=== PATIENT | female | born 1965 | race African-American/Black ===

== ENCOUNTER 2017-05-31 08:18 | Emergency (ER) | payer MEDICAID ==
[~2017-05-31] VITALS: Ht 172.7 cm; Wt 80.0 kg
[~2017-05-31 08:18] MED LIST: AMLO10TA PO; DILT180C66 PO; FURO-149 PO; LABE300T PO
[2017-05-31 10:24] LABS: HEMOGLOBIN 9.8 g/dl (12.0-16.0); MEAN CORPUSCULAR HEMOGLOBIN 29.9 PG (27.0-31.0); MEAN CORPUSCULAR HGB CONC 33.8 % (33.0-36.5); MEAN CORPUSCULAR VOLUME 88.4 FL (78-98); MEAN PLATELET VOLUME 7.7 FL (7.4-10.4); PLATELET COUNT 302 X10'3 (140-440); RED BLOOD COUNT 3.29 X10'6 (4.20-5.60); RED CELL DISTRIBUTION WIDTH 15.9 % (11.5-14.5)
[2017-05-31 10:37] LABS: ANISOCYTOSIS 1+; LARGE PLATELETS FEW; PLATELET ESTIMATE NORMAL; TOTAL CELLS COUNTED 100
[2017-05-31 10:45] LABS: ALANINE AMINOTRANSFERASE 36 U/L (12-78); ALBUMIN 2.9 G/DL (3.4-5.0); ALBUMIN/GLOBULIN RATIO 0.7 (1.1-1.5); ALKALINE PHOSPHATASE 80 IU/L (46-116); ANION GAP 10 (8-16); ASPARTATE AMINO TRANSFERASE 17 U/L (10-37); BILIRUBIN,TOTAL 0.4 MG/DL (0.1-1.0); BLOOD UREA NITROGEN 69 MG/DL (7-18); CALCIUM 8.4 MG/DL (8.5-10.1); CHLORIDE 106 MMOL/L (99-107); CREATININE 4.94 MG/DL (0.40-0.90); GLUCOSE 86 MG/DL (70-104); POTASSIUM 4.6 MMOL/L (3.5-5.1); SODIUM 140 MMOL/L (135-145); TOTAL CARBON DIOXIDE 24.1 MMOL/L (24-32); TOTAL PROTEIN 6.9 G/DL (6.4-8.2); eGFR 11 ML/MIN
[2017-05-31 10:49] VITALS: BP 197/115
== END 2017-05-31 11:52 | disposition home or self-care (01) ==
LOC: ER 08:19
DX: I13.0 Hypertensive heart and chronic kidney disease with heart failure and stage 1 through stage 4 chronic kidney disease, or unspecified chronic kidney disease (principal); N18.9 Chronic kidney disease, unspecified; I50.9 Heart failure, unspecified; R60.0 Localized edema; I25.10 Atherosclerotic heart disease of native coronary artery without angina pectoris; F12.10 Cannabis abuse, uncomplicated; F15.10 Other stimulant abuse, uncomplicated; Z95.1 Presence of aortocoronary bypass graft; Z98.61 Coronary angioplasty status; Z88.8 Allergy status to other drugs, medicaments and biological substances; Z79.899 Other long term (current) drug therapy
CPT/HCPCS: 36415; 80053; 83880; 85025; 93970; 99285

== ENCOUNTER 2017-06-09 06:42 | Day surgery (SDC) | payer MEDICAID ==
[2017-06-09] VITALS (7 sets, daily range): BP systolic 140–194; BP diastolic 74–100
[2017-06-09] MEDS ORDERED: heparin 1,000unit/ml 10ml vial 10 ML ONE (08:39)
[2017-06-09] MEDS ORDERED: LIDOcaine 1%/PF (10mg/ml) 5ml vial ONE (08:39)
[2017-06-09] MEDS ORDERED: midazolam 2 mg/2 ml injection ONE (08:40)
[2017-06-09] MEDS ORDERED: fentaNYL/PF 50MCG/1 ML 2ML syringe ONE (08:40)
[2017-06-09] MEDS ORDERED: OXAZEpam 15mg capsule PO ONE ×2 (08:44→08:55)
[2017-06-09] MEDS ORDERED: LABE300T PO (09:02)
[2017-06-09] MEDS ORDERED: FURO40TA4 PO (09:02)
[2017-06-09] MEDS ORDERED: METO5TAB7 PO (09:02)
[2017-06-09] MEDS ORDERED: AMLO10TA PO (09:02)
[2017-06-09] MEDS ORDERED: DILT180C66 PO (09:02)
[2017-06-09] MEDS ORDERED: LIDOcaine 1%/PF (10mg/ml) 5ml vial SQ ONE (09:40)
[2017-06-09] MEDS ORDERED: heparin 1,000 units/ml 10ml inj ICATH ONE (09:40)
[2017-06-09] MEDS ORDERED: midazolam 2 mg/2 ml injection IV PRN (09:40)
[2017-06-09] MEDS ORDERED: fentaNYL/PF 50MCG/1 ML 2ML syringe IV PRN (09:40)
== END 2017-06-09 12:25 | disposition home or self-care (01) ==
LOC: SSTAY O 06:42
PROVIDERS: ATTEND Radiology Diagnostic Radiology
DX: I13.2 Hypertensive heart and chronic kidney disease with heart failure and with stage 5 chronic kidney disease, or end stage renal disease (principal); N18.5 Chronic kidney disease, stage 5; I50.9 Heart failure, unspecified; I25.10 Atherosclerotic heart disease of native coronary artery without angina pectoris; F17.210 Nicotine dependence, cigarettes, uncomplicated; F19.21 Other psychoactive substance dependence, in remission; Z95.5 Presence of coronary angioplasty implant and graft; Z79.899 Other long term (current) drug therapy; Z88.8 Allergy status to other drugs, medicaments and biological substances; Z98.890 Other specified postprocedural states
CPT/HCPCS: 36558; 76937; 77001; A6257; C1750; C1894; J1644; J2001; J2250; J3010; J7030; A4620

== ENCOUNTER 2017-06-09 15:56 | Emergency (ER) | payer MEDICAID ==
[~2017-06-09] VITALS: Ht 175.3 cm; Wt 75.0 kg
[~2017-06-09 15:56] MED LIST changes: +FURO40TA4 PO; +METO5TAB7 PO
[2017-06-09 16:32] VITALS: BP 140/90
== END 2017-06-09 16:37 | disposition home or self-care (01) ==
LOC: ER 15:56
DX: M54.2 Cervicalgia (principal); Z13.89 Encounter for screening for other disorder; F12.10 Cannabis abuse, uncomplicated; F15.10 Other stimulant abuse, uncomplicated; I25.10 Atherosclerotic heart disease of native coronary artery without angina pectoris; I13.0 Hypertensive heart and chronic kidney disease with heart failure and stage 1 through stage 4 chronic kidney disease, or unspecified chronic kidney disease; I50.9 Heart failure, unspecified; N18.9 Chronic kidney disease, unspecified; Z95.1 Presence of aortocoronary bypass graft; Z99.2 Dependence on renal dialysis
CPT/HCPCS: 71045; 99283

== ENCOUNTER 2018-07-19 01:54 | Inpatient (IN) | payer MEDICAID ==
[~2018-07-19] VITALS: Ht 172.7 cm; Wt 60.7 kg
[~2018-07-19 01:54] MED LIST changes: -FURO-149 PO; -LABE300T PO; +LABE300T2 PO
--- NOTE | 2018-07-19 03:06 | NUR ---
March at bedside with plans to consult with nursing unit clerk
[2018-07-19] MEDS ORDERED: acetaminophen 325mg tablet PO PRN ×2 (04:55)
[2018-07-19] MEDS ORDERED: ondansetron/PF 4mg/2ml inj IV PRN (04:55)
[2018-07-19] MEDS ORDERED: acetaminophen 650mg rectal suppository RC PRN (04:55)
[2018-07-19 07:04] LABS: BASOPHILS # (AUTO) 0.1 X10'3 (0-0.2); BASOPHILS % (AUTO) 1.5 % (0-1); EOSINOPHILS # (AUTO) 0.3 X10'3 (0-0.9); EOSINOPHILS % (AUTO) 4.9 % (0-6); HEMATOCRIT 29.7 % (35.0-45.0); LYMPHOCYTES # (AUTO) 1.5 X10'3 (1.1-4.8); MEAN CORPUSCULAR HEMOGLOBIN 33.3 PG (27.0-31.0); MEAN CORPUSCULAR HGB CONC 33.7 g/dL (33.0-36.5); MEAN CORPUSCULAR VOLUME 98.9 FL (78-98); MEAN PLATELET VOLUME 8.6 FL (7.4-10.4); MONOCYTES # (AUTO) 0.4 X10'3 (0-0.9); MONOCYTES % (AUTO) 8.3 % (2-12); NEUTROPHILS # (AUTO) 2.9 X10'3 (1.8-7.7); NEUTROPHILS % (AUTO) 55.3 % (42-75); PLATELET COUNT 168 X10'3 (140-440); RED CELL DISTRIBUTION WIDTH 14.7 % (11.5-14.5); WHITE BLOOD COUNT 5.2 X10'3 (4.5-11.0)
[2018-07-19 07:19] LABS: ALANINE AMINOTRANSFERASE 17 U/L (12-78); ALBUMIN 3.2 G/DL (3.4-5.0); ALBUMIN/GLOBULIN RATIO 1.1 (1.1-1.5); ALKALINE PHOSPHATASE 50 IU/L (46-116); ANION GAP 14 (8-16); ASPARTATE AMINO TRANSFERASE 16 U/L (10-37); BILIRUBIN,TOTAL 0.5 MG/DL (0.1-1.0); BLOOD UREA NITROGEN 50 MG/DL (7-18); BUN/CREATININE RATIO 5.4 (6.6-38.0); CALCIUM 8.8 MG/DL (8.5-10.1); CHLORIDE 102 MMOL/L (99-107); CREATININE 9.18 MG/DL (0.40-0.90); GLUCOSE 74 MG/DL (70-104); MAGNESIUM 2.7 MG/DL (1.5-2.4); PHOSPHORUS 6.5 MG/DL (2.3-4.5); POTASSIUM 3.5 MMOL/L (3.5-5.1); SODIUM 140 MMOL/L (135-145); TOTAL CARBON DIOXIDE 23.9 MMOL/L (24-32); TOTAL PROTEIN 6.1 G/DL (6.4-8.2); eGFR 5 ML/MIN
[2018-07-19 07:35] VITALS: BP 202/94
[2018-07-19] MEDS: heparin, porcine 5000 units/ml vial SQ SCH ×2 (08:00→20:21)
--- NOTE | 2018-07-19 08:09 | NUR ---
Called Paste Mixing Supervisor doctor Dr. Diaz regarding initial BP of 202/94 and that BP reading has been high even in the ER. Dr. Diaz ordered to resume all her BP meds patient taking at home. List of home meds reviewed with patient.
[2018-07-19] MEDS ORDERED: diltiazem CD 180mg cap (once-daily) PO SCH (08:15)
[2018-07-19] MEDS: famotidine 20mg tablet PO SCH (08:31)
[2018-07-19] MEDS: furosemide 40mg tablet PO SCH ×2 (08:31→20:21)
[2018-07-19] MEDS: docusate sod 100mg capsule PO SCH ×2 (08:31→20:21)
[2018-07-19] MEDS ORDERED: heparin 1,000unit/ml 10ml vial 10 ML IV ONE (08:33)
[2018-07-19] MEDS ORDERED: heparin 1,000 units/ml 10ml inj IV ONE (08:35)
[2018-07-19] MEDS ORDERED: epoetin 20,000 units/ml inj IV ONE (08:35)
[2018-07-19] MEDS ORDERED: albumin (Human) 5% 250ml 250 ML IV PRN (08:35)
[2018-07-19] MEDS ORDERED: heparin 1,000 units/ml 10ml inj HE ONE ×2 (08:40)
[2018-07-19] MEDS: metolazone 2.5mg tablet PO SCH ×2 (09:45→11:44)
--- NOTE | 2018-07-19 09:45 | NUR ---
Metolazone held due to scheduled hemodialysis treatment scheduled for today. Hands off report given to HD nurse Oralia
[2018-07-19 10:15] VITALS: BP 196/95
[2018-07-19 11:00] VITALS: BP 204/98
[2018-07-19 11:13] VITALS: BP 204/98
--- NOTE | 2018-07-19 12:03 | NUR ---
Called Dr. Diaz regarding BP still high even after I resumed her PO BP meds. Dr. Diaz said she should be dialyzed today. Also, got an order to start patient on renal diet
--- NOTE | 2018-07-19 15:14 | NUR ---
Spoke to Georgiana from [facility] dialysis about obtaining hemodialysis consent as I do not see any consent signed in the chart
--- NOTE | 2018-07-19 15:47 | NUR ---
HD nurse reported to me that she verified with her warehouse receiving supervisor about patient already have consent for hemodialysis previously
[2018-07-19 15:48] VITALS: BP 182/103
[2018-07-19] MEDS ORDERED: diltiazem CD 180mg cap (once-daily) PO STA (16:57)
[2018-07-19] MEDS ORDERED: minoxidil 2.5mg tablet PO PRN (17:00)
[2018-07-19] MEDS ORDERED: HYDROcodone/acetaminophen 10/325mg tab PO PRN (17:05)
[2018-07-19] MEDS: HYDROcodone/acetaminophen 5mg/325mg tablet PO PRN (17:15)
--- NOTE | 2018-07-19 18:32 | NUR ---
Problems reprioritized. Patient report given, questions answered & plan of care reviewed with Katharine ABURTO.
[2018-07-19 20:00] VITALS: BP 184/93
[2018-07-19] MEDS: labetalol 100mg tablet PO SCH (20:22)
--- NOTE | 2018-07-19 21:29 | NUR ---
Patient in room REEMA 349. I have received report from CRISELDA Hogan and had the opportunity to ask questions and assume patient care. Addendum: 07/19/18 at 2132 by Katharine Marie RN Amended: Links added.
[2018-07-20 00:12] VITALS: BP 147/84
[2018-07-20 05:48] LABS: BASOPHILS % (AUTO) 0.7 % (0-1); EOSINOPHILS # (AUTO) 0.2 X10'3 (0-0.9); EOSINOPHILS % (AUTO) 5.1 % (0-6); HEMOGLOBIN 11.4 g/dl (12.0-16.0); LYMPHOCYTES # (AUTO) 1.3 X10'3 (1.1-4.8); LYMPHOCYTES % (AUTO) 30.4 % (21-51); MEAN CORPUSCULAR HEMOGLOBIN 33.3 PG (27.0-31.0); MEAN CORPUSCULAR HGB CONC 33.5 g/dL (33.0-36.5); MEAN CORPUSCULAR VOLUME 99.2 FL (78-98); MEAN PLATELET VOLUME 8.9 FL (7.4-10.4); MONOCYTES # (AUTO) 0.2 X10'3 (0-0.9); MONOCYTES % (AUTO) 5.7 % (2-12); NEUTROPHILS # (AUTO) 2.4 X10'3 (1.8-7.7); NEUTROPHILS % (AUTO) 58.1 % (42-75); PLATELET COUNT 195 X10'3 (140-440); RED BLOOD COUNT 3.43 X10'6 (4.20-5.60); RED CELL DISTRIBUTION WIDTH 14.5 % (11.5-14.5); WHITE BLOOD COUNT 4.2 X10'3 (4.5-11.0)
[2018-07-20 05:55] LABS: ALBUMIN 3.4 G/DL (3.4-5.0); ANION GAP 9 (8-16); BLOOD UREA NITROGEN 25 MG/DL (7-18); BUN/CREATININE RATIO 4.2 (6.6-38.0); CALCIUM 8.7 MG/DL (8.5-10.1); CHLORIDE 103 MMOL/L (99-107); CREATININE 5.91 MG/DL (0.40-0.90); GLUCOSE 84 MG/DL (70-104); PHOSPHORUS 4.3 MG/DL (2.3-4.5); SODIUM 139 MMOL/L (135-145); TOTAL CARBON DIOXIDE 27.5 MMOL/L (24-32); eGFR 9 ML/MIN
[2018-07-20 05:56] LABS: POTASSIUM 4.1 MMOL/L (3.5-5.1)
--- NOTE | 2018-07-20 06:18 | NUR ---
Problems reprioritized. Patient report given, questions answered & plan of care reviewed with CRISELDA Hogan. Addendum: 07/20/18 at 0618 by Katharine Marie RN Amended: Links added.
--- NOTE | 2018-07-20 06:26 | NUR ---
Patient in room REEMA 349. I have received report from Katharine ABURTO and had the opportunity to ask questions and assume patient care.
[2018-07-20 07:00] VITALS: BP 199/94
[2018-07-20] MEDS: docusate sod 100mg capsule PO SCH (07:50)
[2018-07-20] MEDS: furosemide 40mg tablet PO SCH (07:50)
[2018-07-20] MEDS: famotidine 20mg tablet PO SCH (07:50)
[2018-07-20] MEDS: labetalol 100mg tablet PO SCH (07:51)
[2018-07-20] MEDS: metolazone 2.5mg tablet PO SCH (07:52)
[2018-07-20] MEDS: heparin, porcine 5000 units/ml vial SQ SCH (07:53)
[2018-07-20] MEDS: HYDROcodone/acetaminophen 5mg/325mg tablet PO PRN (07:59)
[2018-07-20] MEDS ORDERED: diltiazem CD 180mg cap (once-daily) PO SCH (08:00)
[2018-07-20 09:43] VITALS: BP 124/62
[2018-07-20] MEDS ORDERED: AMLO5TAB PO (09:47)
[2018-07-20] MEDS ORDERED: DILT180C66 PO (09:47)
--- NOTE | 2018-07-20 10:40 | NUR ---
Discharge instructions given to patient, patient verbalized understanding of all instructions made to her including getting a primary care physician or going to [facility] to have a doctor manage her condition on top of following up with the Dialysis Center as per routine Addendum: 07/20/18 at 1042 by Samira Chadwick RN Peripheral IV catheter removed from the left EJ, tip intact, pressure dressing applied. Instructed patient to ensure she has all her belongings with her and to wait for her new prescription filled and delivered at bedside by [facility]
--- NOTE | 2018-07-20 11:40 | NUR ---
Patient received her new prescription filled by [facility] pharmacy. Patient was discharged home accompanied by her family
[2018-07-21] MEDS ORDERED: lactulose 20gm/30ml cup PO PRN (04:55)
== END 2018-07-20 11:40 | disposition home or self-care (01) | DRG 813 ==
LOC: ER 01:55 → SUR 3N 07:52
PROVIDERS: ADMIT Nurse Practitioner Family; ATTEND Nurse Practitioner Family
PROC: 5A1D70Z Performance of Urinary Filtration, Intermittent, Less than 6 Hours Per Day (ICD-10-PCS; principal; 2018-07-19)
DX: L76.32 Postprocedural hematoma of skin and subcutaneous tissue following other procedure (principal); I13.2 Hypertensive heart and chronic kidney disease with heart failure and with stage 5 chronic kidney disease, or end stage renal disease; E10.22 Type 1 diabetes mellitus with diabetic chronic kidney disease; E10.51 Type 1 diabetes mellitus with diabetic peripheral angiopathy without gangrene; F15.90 Other stimulant use, unspecified, uncomplicated; N18.6 End stage renal disease; G30.9 Alzheimer's disease, unspecified; F02.80 Dementia in other diseases classified elsewhere, unspecified severity, without behavioral disturbance, psychotic disturbance, mood disturbance, and anxiety; I25.10 Atherosclerotic heart disease of native coronary artery without angina pectoris; Y83.8 Other surgical procedures as the cause of abnormal reaction of the patient, or of later complication, without mention of misadventure at the time of the procedure; I50.9 Heart failure, unspecified; J44.9 Chronic obstructive pulmonary disease, unspecified; F12.90 Cannabis use, unspecified, uncomplicated; Y92.89 Other specified places as the place of occurrence of the external cause; Z79.4 Long term (current) use of insulin; I25.2 Old myocardial infarction; Z82.0 Family history of epilepsy and other diseases of the nervous system; Z82.3 Family history of stroke; Z86.73 Personal history of transient ischemic attack (TIA), and cerebral infarction without residual deficits; Z87.891 Personal history of nicotine dependence; Z86.74 Personal history of sudden cardiac arrest; Z95.1 Presence of aortocoronary bypass graft; Z99.2 Dependence on renal dialysis; Z83.3 Family history of diabetes mellitus; Z82.5 Family history of asthma and other chronic lower respiratory diseases; Z82.49 Family history of ischemic heart disease and other diseases of the circulatory system; Z82.41 Family history of sudden cardiac death; Z88.8 Allergy status to other drugs, medicaments and biological substances
CPT/HCPCS: 36415; 80053; 80069; 83735; 83880; 84100; 85025; 87070; 93931; 93971; 99285; G0257; G0378; J0885; J1644

== ENCOUNTER 2018-08-22 11:18 | Inpatient (IN) | payer MEDICAID ==
[~2018-08-22] VITALS: Ht 175.3 cm; Wt 63.6 kg
[~2018-08-22 11:18] MED LIST changes: -AMLO10TA PO; -METO5TAB7 PO
--- NOTE | 2018-08-22 12:05 | NUR ---
PATIENT STATES THAT SHE HAD BEEN ON DIALYSIS FOR ABOUT 1 YEAR AND IS SUPPOSED TO GO TO HD ON THURSDAY, THURSDAY, AND THURSDAY PATIENT MISSED HER THURSDAY DIALYSIS BECAUSE "I COULD NOT FIND MY SHOES" PATIENT APPEARS TO HAVE A LEFT UPPER ARM LOOP GRAFT FISTULA WITH POSITIVE BRUIT AND POSITIVE THRILL PATIENT HAS A RIGHT UPPER CHEST HD CATHETER THAT DOES NOT HAVE A DRESSING ON IT, NOR IS EXTERNALLY SECURED
[2018-08-22] MEDS ORDERED: nitroGLYCERIN-Tridil 50MG/D5W 250 ML IV PRN (12:16)
[2018-08-22] MEDS ORDERED: labetalol 20mg/4ml (5mg/ml) syringe IV ONE (12:20)
[2018-08-22] MEDS ORDERED: furosemide 10 MG/1 ML 10ml inj IV ONE (12:20)
--- NOTE | 2018-08-22 12:22 | NUR ---
RIGHT KRISTYN CATHETER: EXTERNAL LENGTH TO HUB OF Y=4 CM, CATHETER DIRTY WITH HAIR ON IT. PATIENT STATED THAT SHE TOOK THE DRESSING OFF BECAUSE IT ITCHED. I EXPLAINED IN SIMPLE DETAIL THE IMPORTANCE OF KEEPING HER CENTRAL LINE SITE CLEAN AND WITH A DRESSING ON IT. I EXPLAINED THE INCREASED RISK OF INFECTION BY REMOVING THE DRESSING. I CLEANED THE ACTUAL LINE WITH MULTIPLE CLORAPREPS AND REMOVED DIRT AND HAIR. I THEN USED A CENTRAL LINE DRESSING KIT AND USED STERILE TECHNIQUE TO PLACE A TEGADERM FROM THE CL DRESSING KIT.
--- NOTE | 2018-08-22 12:24 | NUR ---
PATIENT STATES THAT SHE TAKES 300 MG OF LABETOLOL AND THAT DR LÓPEZ STARTED HER ON CARDIA AND ANOTHER BP MEDICATION ABOUT 3 WEEKS AGO AND SHE DID NOT TAKE THEM BEACUSE SHE DID NOT WANT TO HAVE HER BLOOD PRESSURE GET TOO LOW
[2018-08-22 12:31] LABS: BASOPHILS # (AUTO) 0.1 X10'3 (0-0.2); EOSINOPHILS # (AUTO) 0.2 X10'3 (0-0.9); EOSINOPHILS % (AUTO) 2.2 % (0-6); HEMATOCRIT 36.1 % (35.0-45.0); LYMPHOCYTES # (AUTO) 1.5 X10'3 (1.1-4.8); MEAN CORPUSCULAR HEMOGLOBIN 33.5 PG (27.0-31.0); MEAN CORPUSCULAR HGB CONC 33.4 g/dL (33.0-36.5); MEAN CORPUSCULAR VOLUME 100.2 FL (78-98); MEAN PLATELET VOLUME 9.3 FL (7.4-10.4); MONOCYTES # (AUTO) 0.3 X10'3 (0-0.9); MONOCYTES % (AUTO) 4.1 % (2-12); NEUTROPHILS # (AUTO) 5.1 X10'3 (1.8-7.7); NEUTROPHILS % (AUTO) 71.7 % (42-75); PLATELET COUNT 303 X10'3 (140-440); RED CELL DISTRIBUTION WIDTH 15.9 % (11.5-14.5); WHITE BLOOD COUNT 7.1 X10'3 (4.5-11.0)
[2018-08-22 12:45] LABS: ALANINE AMINOTRANSFERASE 41 U/L (12-78); ALBUMIN 3.9 G/DL (3.4-5.0); ALKALINE PHOSPHATASE 74 IU/L (46-116); ANION GAP 14 (8-16); ASPARTATE AMINO TRANSFERASE 46 U/L (10-37); BILIRUBIN,TOTAL 1.5 MG/DL (0.1-1.0); BLOOD UREA NITROGEN 58 MG/DL (7-18); BUN/CREATININE RATIO 6.7 (6.6-38.0); CALCIUM 9.2 MG/DL (8.5-10.1); CHLORIDE 99 MMOL/L (99-107); CREATININE 8.72 MG/DL (0.40-0.90); GLUCOSE 93 MG/DL (70-104); SODIUM 136 MMOL/L (135-145); TOTAL CARBON DIOXIDE 23.4 MMOL/L (24-32); TOTAL PROTEIN 7.9 G/DL (6.4-8.2); eGFR 6 ML/MIN
[2018-08-22 12:47] LABS: POTASSIUM 4.1 MMOL/L (3.5-5.1)
[2018-08-22] MEDS ORDERED: ondansetron/PF 4mg/2ml inj IV PRN (14:00)
[2018-08-22] MEDS ORDERED: HYDROcodone/acetaminophen 5mg/325mg tablet PO PRN (14:00)
[2018-08-22] MEDS ORDERED: acetaminophen 325mg tablet PO PRN (14:00)
[2018-08-22] MEDS: diltiazem CD 180mg cap (once-daily) PO SCH (14:31)
--- NOTE | 2018-08-22 14:32 | NUR ---
COUDICKSON KNOX VISITED [phone]
[2018-08-22 15:10] LABS: PARTIAL THROMBOPLASTIN TIME 26 SECONDS (22-32)
--- NOTE | 2018-08-22 15:55 | NUR ---
Patient in room PCU 3012. I have received report from Galina ABURTO and had the opportunity to ask questions and assume patient care.
[2018-08-22] MEDS ORDERED: labetalol 100mg tablet PO STA (16:19)
[2018-08-22] MEDS ORDERED: hydrALAZINE 20mg/ml inj. IV ONE (16:20)
--- NOTE | 2018-08-22 16:26 | NUR ---
SPOKE TO CARROLL AUTOMATED ACCESS SYSTEMS TECHNICIAN REGARDING NITRO GTT DCD AND APRESOLINE 10 MG IV AND LABETOLOL 300 MG PO TO BE GIVEN. CARROLL WILL INFORM RN NOT TO HOLD NOC MEDS
--- NOTE | 2018-08-22 16:35 | NUR ---
PER DR YNUG, NITRO GTT STOPPED. GUN BARREL FINISHER GARY CALLED AND CARROLL WILL INFORM Devon ABURTO THAT PO LABETOLOL 300 MG NEEDS TO BE GIVEN MARISEL THE MEDICATION IS NOT IN THE ER OMNICELL
--- NOTE | 2018-08-22 16:47 | NUR ---
Patient arrived to PCU.
[2018-08-22 17:00] VITALS: BP 211/96
[2018-08-22 18:00] VITALS: BP 222/96
--- NOTE | 2018-08-22 18:00 | NUR ---
Patient in room PCU 3012. I have received report from Anoop ABURTO and had the opportunity to ask questions and assume patient care.
--- NOTE | 2018-08-22 18:38 | NUR ---
Problems reprioritized. Patient report given, questions answered & plan of care reviewed with Bambi ABURTO.
--- NOTE | 2018-08-22 18:40 | NUR ---
Patient in room PCU 3012. I have received report from Anoop ABURTO and had the opportunity to ask questions and assume patient care with Maria G ABURTO.
[2018-08-22] MEDS: hydrALAZINE 20mg/ml inj. IV SCH (19:30)
--- NOTE | 2018-08-22 20:06 | NUR ---
notified Laci Chavez that per Anoop ABURTO from day shift, pt arrived to floor with no TDC dressing and it was dirty and oozing. dressing is now CDI. Pt denied any pain around TDC site or head or neck. WBC 7.1. No orders for blood cultures at this time
[2018-08-22] MEDS: labetalol 100mg tablet PO SCH (21:55)
[2018-08-22 22:00] VITALS: BP 159/72
[2018-08-23] MEDS: hydrALAZINE 20mg/ml inj. IV SCH ×2 (01:36→07:30)
[2018-08-23 02:00] VITALS: BP 149/69
[2018-08-23 04:55] LABS: URINE AMPHETAMINE SCREEN NEGATIVE (Neg); URINE BARBITUATE SCREEN NEGATIVE (Neg); URINE BENZODIAZEPINES SCREEN NEGATIVE (Neg); URINE CANNABINOID SCREEN POSITIVE (Neg); URINE COCAINE SCREEN NEGATIVE (Neg); URINE METHADONE SCREEN NEGATIVE (Neg); URINE OPIATE SCREEN NEGATIVE (Neg); URINE PHENCYCLIDINE SCREEN NEGATIVE (Neg)
--- NOTE | 2018-08-23 05:09 | NUR ---
Patient rested comfortably all night. No complaints of pain. Patient stated that she cannot walk when her SBP is 120s.
--- NOTE | 2018-08-23 05:34 | NUR ---
Patient refusing AM Lab draw. Patient stated to only poke her on the hand and no where else. Lab will be back to try again.
--- NOTE | 2018-08-23 06:04 | NUR ---
Orientee documentation: I have reviewed and agree with all interventions, assessments performed and documented by Maria G ABURTO.
--- NOTE | 2018-08-23 06:04 | NUR ---
Problems reprioritized. Patient report given, questions answered & plan of care reviewed with Anoop ABURTO.
--- NOTE | 2018-08-23 06:04 | NUR ---
Problems reprioritized. Patient report given, questions answered & plan of care reviewed with Anoop ABURTO.
--- NOTE | 2018-08-23 06:05 | NUR ---
Patient in room PCU 3012. I have received report from Bambi ABURTO and had the opportunity to ask questions and assume patient care.
[2018-08-23 06:41] VITALS: BP 113/62
[2018-08-23 06:58] LABS: BASOPHILS # (AUTO) 0.1 X10'3 (0-0.2); BASOPHILS % (AUTO) 1.1 % (0-1); EOSINOPHILS # (AUTO) 0.2 X10'3 (0-0.9); EOSINOPHILS % (AUTO) 2.9 % (0-6); HEMATOCRIT 28.2 % (35.0-45.0); HEMOGLOBIN 9.7 g/dl (12.0-16.0); LYMPHOCYTES % (AUTO) 17.6 % (21-51); MEAN CORPUSCULAR HEMOGLOBIN 33.9 PG (27.0-31.0); MEAN CORPUSCULAR HGB CONC 34.5 g/dL (33.0-36.5); MEAN CORPUSCULAR VOLUME 98.1 FL (78-98); MEAN PLATELET VOLUME 9.1 FL (7.4-10.4); MONOCYTES # (AUTO) 0.4 X10'3 (0-0.9); MONOCYTES % (AUTO) 7.2 % (2-12); NEUTROPHILS % (AUTO) 71.2 % (42-75); PLATELET COUNT 236 X10'3 (140-440); RED BLOOD COUNT 2.88 X10'6 (4.20-5.60); RED CELL DISTRIBUTION WIDTH 15.8 % (11.5-14.5); WHITE BLOOD COUNT 5.6 X10'3 (4.5-11.0)
[2018-08-23] MEDS: labetalol 100mg tablet PO SCH ×2 (07:23→20:15)
[2018-08-23] MEDS: diltiazem CD 180mg cap (once-daily) PO SCH (07:24)
--- NOTE | 2018-08-23 07:42 | NUR ---
TDC Documentation! Patient presented to ED with Right sided TDC that was open to air (no dressing), was dirty and hairy. The ER nurse cleaned the exposed catheter and applied a new sterile dressing to the site. According to the ER nurse, the patient usually receives dialysis , , and Thu, but missed her Thursday appointment because she didn't feel like going and couldn't find her shoes. Therefore, the patient has not had dialysis reportedly since last . Per the ER nurse report, the patient removed the sterile dressing on the TDC because the dressing was beginning to itch. Naomie ABURTO (infection control) was notified verbally this morning of these circumstances, in which she made a note of the occurrence and informed me she would be sending Ezekiel Magaña RN an email for infection control to follow up on. No ABX or Blood cultures have been ordered to my knowledge.
[2018-08-23] MEDS ORDERED: heparin 1,000unit/ml 10ml vial 10 ML IV ONE (08:39)
[2018-08-23] MEDS ORDERED: albumin (Human) 5% 250ml 250 ML IV PRN (08:40)
[2018-08-23] MEDS ORDERED: heparin 1,000 units/ml 10ml inj IV ONE (08:40)
[2018-08-23] MEDS ORDERED: epoetin 20,000 units/ml inj IV ONE (08:40)
--- NOTE | 2018-08-23 08:40 | NUR ---
TDC documentation Patient states she removed TDC dressing on 08/22/18 prior to coming to ER.
[2018-08-23 08:42] LABS: ANION GAP 14 (8-16); BLOOD UREA NITROGEN 64 MG/DL (7-18); BUN/CREATININE RATIO 6.9 (6.6-38.0); CALCIUM 8.6 MG/DL (8.5-10.1); CHLORIDE 100 MMOL/L (99-107); GLUCOSE 102 MG/DL (70-104); POTASSIUM 3.7 MMOL/L (3.5-5.1); SODIUM 135 MMOL/L (135-145); TOTAL CARBON DIOXIDE 21.1 MMOL/L (24-32); eGFR 5 ML/MIN
[2018-08-23] MEDS ORDERED: heparin 1,000 units/ml 10ml inj HE ONE ×2 (08:45)
[2018-08-23 11:00] VITALS: BP 100/64
[2018-08-23 15:00] VITALS: BP 105/60
--- NOTE | 2018-08-23 16:37 | NUR ---
Spoke to Dr. Joe Diaz ordered CT Abdomen and Pelvis with PO and IV contrast. We have been unable to obtain IV access on patient, and PICC nurse tried and failed twice as well. Dr. Diaz said if we are unable to obtain IV contrast then we are to proceed using only PO contrast.
[2018-08-23 18:00] VITALS: BP 158/79
--- NOTE | 2018-08-23 18:00 | NUR ---
Patient in room PCU 3012. I have received report from Anoop ABURTO and had the opportunity to ask questions and assume patient care.
[2018-08-23] MEDS: ipratropium/albuterol 3ml nebule NEB PRN (21:50)
[2018-08-23] MEDS: diatr meglu/diatrizoate 30ml oral sol.-(3 dose) bottle PO SCH (22:35)
[2018-08-23 23:14] VITALS: BP 134/64
[2018-08-24] VITALS (7 sets, daily range): BP systolic 135–176; BP diastolic 66–91
--- NOTE | 2018-08-24 06:20 | NUR ---
Orientee documentation: I have reviewed and agree with all interventions, assessments performed and documented by Maria G ABURTO.
--- NOTE | 2018-08-24 06:20 | NUR ---
Problems reprioritized. Patient report given, questions answered & plan of care reviewed with Sultana ABURTO.
--- NOTE | 2018-08-24 06:26 | NUR ---
Patient in room PCU 3012. I have received report from Bambi ABURTO and had the opportunity to ask questions and assume patient care.
[2018-08-24] MEDS: diatr meglu/diatrizoate 30ml oral sol.-(3 dose) bottle PO SCH ×2 (07:15→21:00)
[2018-08-24 09:31] LABS: ALBUMIN 2.8 G/DL (3.4-5.0); BLOOD UREA NITROGEN 26 MG/DL (7-18); BUN/CREATININE RATIO 4.9 (6.6-38.0); CALCIUM 8.7 MG/DL (8.5-10.1); CHLORIDE 104 MMOL/L (99-107); GLUCOSE 99 MG/DL (70-104); POTASSIUM 3.9 MMOL/L (3.5-5.1); TOTAL CARBON DIOXIDE 26.3 MMOL/L (24-32); eGFR 10 ML/MIN
[2018-08-24 09:34] LABS: ANION GAP 6 (8-16); SODIUM 136 MMOL/L (135-145)
[2018-08-24] MEDS: diltiazem CD 180mg cap (once-daily) PO SCH (10:24)
[2018-08-24] MEDS: labetalol 100mg tablet PO SCH ×2 (10:25→20:22)
[2018-08-24 10:40] LABS: BASOPHILS # (AUTO) 0.1 X10'3 (0-0.2); BASOPHILS % (AUTO) 1.4 % (0-1); EOSINOPHILS # (AUTO) 0.1 X10'3 (0-0.9); EOSINOPHILS % (AUTO) 2.4 % (0-6); HEMATOCRIT 30.2 % (35.0-45.0); HEMOGLOBIN 10.4 g/dl (12.0-16.0); LYMPHOCYTES # (AUTO) 0.9 X10'3 (1.1-4.8); LYMPHOCYTES % (AUTO) 21.5 % (21-51); MEAN CORPUSCULAR HEMOGLOBIN 34.2 PG (27.0-31.0); MEAN CORPUSCULAR HGB CONC 34.5 g/dL (33.0-36.5); MEAN PLATELET VOLUME 8.5 FL (7.4-10.4); MONOCYTES # (AUTO) 0.4 X10'3 (0-0.9); MONOCYTES % (AUTO) 9.5 % (2-12); NEUTROPHILS # (AUTO) 2.8 X10'3 (1.8-7.7); NEUTROPHILS % (AUTO) 65.2 % (42-75); PLATELET COUNT 248 X10'3 (140-440); RED BLOOD COUNT 3.05 X10'6 (4.20-5.60); RED CELL DISTRIBUTION WIDTH 15.6 % (11.5-14.5); WHITE BLOOD COUNT 4.3 X10'3 (4.5-11.0)
--- NOTE | 2018-08-24 10:53 | NUR ---
Paged respiratory Rm [id number], [place]. Pt is back from CT and needs a breathing treatment.
[2018-08-24] MEDS: ipratropium/albuterol 3ml nebule NEB PRN (10:57)
--- NOTE | 2018-08-24 18:00 | NUR ---
Patient in room PCU 3012. I have received report from Sultana ABURTO and had the opportunity to ask questions and assume patient care.
--- NOTE | 2018-08-24 18:17 | NUR ---
Problems reprioritized. Patient report given, questions answered & plan of care reviewed with Sussy ABURTO. Patient stable at transfer of care.
--- NOTE | 2018-08-24 20:41 | NUR ---
Patient concerned about not being on all home medications and wants to discuss with Dr. Diaz before discharge.
[2018-08-25] VITALS (7 sets, daily range): BP systolic 139–187; BP diastolic 61–87
[2018-08-25 05:30] LABS: ALBUMIN 2.8 G/DL (3.4-5.0); ANION GAP 10 (8-16); BLOOD UREA NITROGEN 34 MG/DL (7-18); BUN/CREATININE RATIO 5.1 (6.6-38.0); CALCIUM 8.6 MG/DL (8.5-10.1); CHLORIDE 102 MMOL/L (99-107); CREATININE 6.65 MG/DL (0.40-0.90); GLUCOSE 117 MG/DL (70-104); POTASSIUM 3.8 MMOL/L (3.5-5.1); SODIUM 137 MMOL/L (135-145); TOTAL CARBON DIOXIDE 25.2 MMOL/L (24-32); eGFR 8 ML/MIN
--- NOTE | 2018-08-25 05:58 | NUR ---
Orientee documentation: I have reviewed and agree with all interventions, assessments performed and documented by Maria G ABURTO. Medication Administration: For this medication-pass time frame, all medication were reviewed, dispensed, administered and documented per hospital policy.
--- NOTE | 2018-08-25 06:00 | NUR ---
Recieved report from CRISELDA Hi Assumed care of patient, she is in bed resting comfortably. No Apparent distress
--- NOTE | 2018-08-25 06:13 | NUR ---
Problems reprioritized. Patient report given, questions answered & plan of care reviewed with Sultana ABURTO.
--- NOTE | 2018-08-25 06:32 | NUR ---
Patient in room PCU 3012. I have received report from Sussy ABURTO and had the opportunity to ask questions and assume patient care.
[2018-08-25] MEDS ORDERED: heparin 1,000unit/ml 10ml vial 10 ML IV ONE (07:18)
[2018-08-25] MEDS ORDERED: heparin 1,000 units/ml 10ml inj IV ONE (07:20)
[2018-08-25] MEDS ORDERED: LIDOcaine 1% (10mg/ml) 2ml vial SQ ONE (07:20)
[2018-08-25] MEDS ORDERED: epoetin 20,000 units/ml inj IV ONE (07:20)
[2018-08-25] MEDS ORDERED: albumin (Human) 5% 250ml 250 ML IV PRN (07:20)
[2018-08-25] MEDS: diltiazem CD 180mg cap (once-daily) PO SCH (07:21)
[2018-08-25] MEDS: labetalol 100mg tablet PO SCH ×2 (07:22→19:37)
[2018-08-25 07:56] LABS: EOSINOPHILS # (AUTO) 0.2 X10'3 (0-0.9); EOSINOPHILS % (AUTO) 4.3 % (0-6); HEMATOCRIT 30.4 % (35.0-45.0); HEMOGLOBIN 10.4 g/dl (12.0-16.0); LYMPHOCYTES # (AUTO) 1.1 X10'3 (1.1-4.8); LYMPHOCYTES % (AUTO) 23.3 % (21-51); MEAN CORPUSCULAR HGB CONC 34.1 g/dL (33.0-36.5); MEAN CORPUSCULAR VOLUME 99.6 FL (78-98); MEAN PLATELET VOLUME 9.1 FL (7.4-10.4); MONOCYTES # (AUTO) 0.4 X10'3 (0-0.9); MONOCYTES % (AUTO) 9.3 % (2-12); NEUTROPHILS # (AUTO) 2.8 X10'3 (1.8-7.7); NEUTROPHILS % (AUTO) 62.1 % (42-75); PLATELET COUNT 233 X10'3 (140-440); RED BLOOD COUNT 3.05 X10'6 (4.20-5.60); WHITE BLOOD COUNT 4.5 X10'3 (4.5-11.0)
[2018-08-25] MEDS ORDERED: heparin 1,000 units/ml 10ml inj HE ONE ×2 (10:50)
--- NOTE | 2018-08-25 14:03 | NUR ---
Rm [id number], [place]. Pt brought in home medications to be added to med rec, could you come up please.
[2018-08-25] MEDS ORDERED: NIFE30TA95 PO (14:35)
[2018-08-25] MEDS ORDERED: ZAR2.5T PO (14:40)
[2018-08-25] MEDS ORDERED: HYDR-4070 PO (14:43)
[2018-08-25] MEDS ORDERED: AMLO2.5T2 PO (14:46)
[2018-08-25] MEDS ORDERED: FOLI0.8T7 PO (14:48)
[2018-08-25] MEDS ORDERED: PHO667C PO (14:51)
--- NOTE | 2018-08-25 15:00 | NUR ---
Patient's sister brought in a bag of home medications. The medications were reviewed and reconciled in computer. Dr Diaz was notified of the home meds, and advised to review medications to consult with patient. She states that she is not sure what meds she should take.
--- NOTE | 2018-08-25 18:00 | NUR ---
Report given to CRISELDA Hi. All questions answered. Patient is in No apparent distress.
--- NOTE | 2018-08-25 18:00 | NUR ---
Patient in room PCU 3012. I have received report from Sultana ABURTO and had the opportunity to ask questions and assume patient care.
--- NOTE | 2018-08-25 18:05 | NUR ---
Problems reprioritized. Patient report given, questions answered & plan of care reviewed with Sussy ABURTO. Patient stable at transfer of care.
--- NOTE | 2018-08-25 18:06 | NUR ---
Orientee documentation: I have reviewed and agree with interventions, assessments performed and documented by Tracy ABURTO. Orientee Medication Administration: For this medication-pass time frame,medications were reviewed, dispensed, administered and documented per hospital policy by Tracy ABURTO.
[2018-08-26] VITALS (12 sets, daily range): BP systolic 154–183; BP diastolic 69–88
[2018-08-26] MEDS ORDERED: hydrALAZINE 20mg/ml inj. IV ONE (03:20)
--- NOTE | 2018-08-26 03:23 | NUR ---
notification blood pressure 177/79 with HR 71 Laci Chavez NP called and 10mg IV hydralazine one time ordered. will continue to monitor
--- NOTE | 2018-08-26 04:52 | NUR ---
Charissa ABURTO from ER started started and 18G IV in the right external jugular. BISHOP
--- NOTE | 2018-08-26 04:54 | NUR ---
unable to draw from new IV, pt refused am lab stick
--- NOTE | 2018-08-26 06:39 | NUR ---
Problems reprioritized. Patient report given, questions answered & plan of care reviewed with Ally ABURTO.
--- NOTE | 2018-08-26 06:42 | NUR ---
oRIENTEE documentation: I have reviewed and agree with all interventions, assessments performed and documented by DAWOOD RN. Medication Administration: For this medication-pass time frame, all medication were reviewed, dispensed, administered and documented per hospital policy by .
[2018-08-26 06:58] LABS: BASOPHILS # (AUTO) 0.1 X10'3 (0-0.2); BASOPHILS % (AUTO) 1.4 % (0-1); EOSINOPHILS # (AUTO) 0.2 X10'3 (0-0.9); EOSINOPHILS % (AUTO) 3.9 % (0-6); HEMATOCRIT 31.4 % (35.0-45.0); HEMOGLOBIN 10.6 g/dl (12.0-16.0); LYMPHOCYTES % (AUTO) 19.6 % (21-51); MEAN CORPUSCULAR HEMOGLOBIN 33.8 PG (27.0-31.0); MEAN CORPUSCULAR HGB CONC 33.7 g/dL (33.0-36.5); MEAN CORPUSCULAR VOLUME 100.2 FL (78-98); MEAN PLATELET VOLUME 8.3 FL (7.4-10.4); MONOCYTES # (AUTO) 0.5 X10'3 (0-0.9); MONOCYTES % (AUTO) 10.4 % (2-12); NEUTROPHILS # (AUTO) 3.2 X10'3 (1.8-7.7); NEUTROPHILS % (AUTO) 64.7 % (42-75); PLATELET COUNT 237 X10'3 (140-440); RED BLOOD COUNT 3.13 X10'6 (4.20-5.60); RED CELL DISTRIBUTION WIDTH 16.2 % (11.5-14.5); WHITE BLOOD COUNT 4.9 X10'3 (4.5-11.0)
--- NOTE | 2018-08-26 06:59 | NUR ---
Patient in room PCU 3012. I have received report from Sussy ABURTO and had the opportunity to ask questions and assume patient care.
[2018-08-26] MEDS: diltiazem CD 180mg cap (once-daily) PO SCH (07:27)
[2018-08-26] MEDS: labetalol 100mg tablet PO SCH ×2 (07:28→19:34)
[2018-08-26 07:44] LABS: ALBUMIN 2.8 G/DL (3.4-5.0); ANION GAP 8 (8-16); BLOOD UREA NITROGEN 25 MG/DL (7-18); BUN/CREATININE RATIO 5.6 (6.6-38.0); CHLORIDE 104 MMOL/L (99-107); GLUCOSE 98 MG/DL (70-104); POTASSIUM 4.4 MMOL/L (3.5-5.1); SODIUM 137 MMOL/L (135-145); TOTAL CARBON DIOXIDE 25.2 MMOL/L (24-32); eGFR 12 ML/MIN
--- NOTE | 2018-08-26 10:45 | NUR ---
Initial: Pt admit with CHF and lung nodule to r/o any neoplasia. Pt s/p echocardiogram which shows severe mitral regurgitation per MD notes. Cardiology recommends heart catheterization. Pt with ESRD on HD. Currently on a renal diet with documented 100% PO intake meeting nutrient needs. [facility] 08/24. Will continue to follow and make recommendations as appropriate. Recommendations: 1) Continue with renal diet 2) Monitor need for ONS 3) Wt per rx Addendum: 08/26/18 at [address] Amended: Links added.
[2018-08-26] MEDS ORDERED: iohexol 350MG/ML 100ml bottle IV ONE (12:03)
[2018-08-26] MEDS ORDERED: midazolam 2 mg/2 ml injection ONE (12:03)
[2018-08-26] MEDS ORDERED: fentaNYL/PF 50MCG/1 ML 2ML syringe ONE (12:03)
[2018-08-26] MEDS ORDERED: LIDOcaine 1% (10mg/ml)w/preservative injection 20ml MDV ONE (12:03)
[2018-08-26] MEDS ORDERED: iohexol 350 MG/ML 50ML vial IV ONE ×2 (12:03→12:38)
--- NOTE | 2018-08-26 13:30 | NUR ---
Pt returned from maintenance shop laborer. Right femoral puncture with Angioseal. Small dime size amount of blood on gauze. Site is without signs of hematoma. Vital signs obtained. Pt is lying flat, denies pain, call light given to pt, will continue to monitor.
[2018-08-26] MEDS ORDERED: nitroGLYCERIN 0.4mg SUBLingual tab SL PRN (14:05)
[2018-08-26] MEDS ORDERED: proCHLORperazine 10 MG/2 ml inj IV PRN (14:05)
[2018-08-26] MEDS ORDERED: OXAZEpam 15mg capsule PO PRN (14:05)
[2018-08-26] MEDS ORDERED: ondansetron/PF 4mg/2ml inj IV PRN (14:05)
[2018-08-26] MEDS ORDERED: HYDROcodone/acetaminophen 5mg/325mg tablet PO PRN (14:05)
--- NOTE | 2018-08-26 16:02 | NUR ---
Pt had moderate bleeding from right femoral puncture site. Manual pressure applied followed by Femstop. Called Dr. Acuna at . Per Dr. Acuna, continue with Femstop protocol.
[2018-08-26] MEDS: HYDROcodone/acetaminophen 10/325mg tab PO PRN ×2 (16:26→21:42)
[2018-08-26 17:25] LABS: ISTAT Hct MIX 28 %PCV (35-48); ISTAT O2 SATURATION MIX VENOUS 67 % (60-80); ISTAT SOURCE MIX
[2018-08-26 17:25] LABS: ISTAT HGB ART 9.2 g/dl (12.0-16.0); ISTAT Hct ART 27 %PCV (35-48); ISTAT O2 SATURATION ARTERIAL 90 % (95-98); ISTAT SOURCE ART
--- NOTE | 2018-08-26 18:00 | NUR ---
Patient in room PCU 3012. I have received report from Ally ABURTO and had the opportunity to ask questions and assume patient care.
--- NOTE | 2018-08-26 21:58 | NUR ---
notified March gave scheduled Labetalol 300 mg at 1930, at 2200 bp was 173/80. March stated she will reconcile home meds and for me to look out for new ones to acknowledge
[2018-08-26] MEDS: furosemide 40mg tablet PO SCH (23:13)
[2018-08-26] MEDS: hydrALAZINE 25 MG tablet PO SCH (23:13)
[2018-08-27 03:00] VITALS: BP 140/74
[2018-08-27 06:00] VITALS: BP 167/73
[2018-08-27 06:10] LABS: BASOPHILS # (AUTO) 0.1 X10'3 (0-0.2); BASOPHILS % (AUTO) 1.1 % (0-1); EOSINOPHILS # (AUTO) 0.2 X10'3 (0-0.9); EOSINOPHILS % (AUTO) 4.2 % (0-6); HEMATOCRIT 32.4 % (35.0-45.0); LYMPHOCYTES # (AUTO) 0.8 X10'3 (1.1-4.8); LYMPHOCYTES % (AUTO) 14.9 % (21-51); MEAN CORPUSCULAR HEMOGLOBIN 33.9 PG (27.0-31.0); MEAN CORPUSCULAR HGB CONC 33.8 g/dL (33.0-36.5); MEAN CORPUSCULAR VOLUME 100.4 FL (78-98); MEAN PLATELET VOLUME 8.8 FL (7.4-10.4); MONOCYTES # (AUTO) 0.4 X10'3 (0-0.9); NEUTROPHILS % (AUTO) 71.8 % (42-75); PLATELET COUNT 243 X10'3 (140-440); RED BLOOD COUNT 3.23 X10'6 (4.20-5.60); WHITE BLOOD COUNT 5.5 X10'3 (4.5-11.0)
[2018-08-27 06:23] LABS: ALBUMIN 2.9 G/DL (3.4-5.0); ANION GAP 10 (8-16); BLOOD UREA NITROGEN 31 MG/DL (7-18); CALCIUM 9.1 MG/DL (8.5-10.1); CHLORIDE 101 MMOL/L (99-107); CREATININE 6.14 MG/DL (0.40-0.90); GLUCOSE 98 MG/DL (70-104); POTASSIUM 4.4 MMOL/L (3.5-5.1); SODIUM 135 MMOL/L (135-145); TOTAL CARBON DIOXIDE 23.9 MMOL/L (24-32); eGFR 9 ML/MIN
--- NOTE | 2018-08-27 06:26 | NUR ---
Problems reprioritized. Patient report given, questions answered & plan of care reviewed with Ally ABURTO.
--- NOTE | 2018-08-27 06:28 | NUR ---
Orientee documentation: I have reviewed and agree with all interventions, assessments performed and documented by Bravo RN . Medication Administration: For this medication-pass time frame, all medication were reviewed, dispensed, administered and documented per hospital policy by .
--- NOTE | 2018-08-27 06:29 | NUR ---
Patient in room PCU 3012. I have received report from Sussy ABURTO and Zuhair ABURTO and had the opportunity to ask questions and assume patient care. Pt alert and oriented X4 in no apparent distress, will continue to monitor. Addendum: 08/27/18 at 1137 by Alyl Miguel RN Puncture site to right groin in CDI and without signs of hematoma, no bruising.
[2018-08-27] MEDS: diltiazem CD 180mg cap (once-daily) PO SCH (08:00)
[2018-08-27] MEDS ORDERED: heparin 1,000unit/ml 10ml vial 10 ML IV ONE (08:00)
[2018-08-27] MEDS ORDERED: amLODIPine 2.5mg tablet PO SCH (08:00)
[2018-08-27] MEDS ORDERED: NIFEdipine XL 30mg tablet PO SCH (08:00)
[2018-08-27] MEDS ORDERED: labetalol 100mg tablet PO SCH (08:00)
[2018-08-27] MEDS ORDERED: metolazone 2.5mg tablet PO SCH (08:00)
[2018-08-27] MEDS ORDERED: epoetin 20,000 units/ml inj IV ONE (08:00)
[2018-08-27] MEDS ORDERED: LIDOcaine 1% (10mg/ml) 2ml vial SQ ONE (08:00)
[2018-08-27] MEDS ORDERED: heparin 1,000 units/ml 10ml inj IV ONE (08:00)
[2018-08-27] MEDS ORDERED: albumin (Human) 5% 250ml 250 ML IV PRN (08:00)
[2018-08-27] MEDS ORDERED: folic acid/vitamin B complex w/vitamin C 0.8mg tablet PO SCH (08:00)
[2018-08-27] MEDS: hydrALAZINE 25 MG tablet PO SCH (08:22)
[2018-08-27] MEDS: calcium acetate 667mg (PhosLO) capsule PO SCH ×2 (08:23→13:53)
[2018-08-27] MEDS: furosemide 40mg tablet PO SCH (08:23)
[2018-08-27] MEDS: labetalol 100mg tablet PO SCH (08:27)
[2018-08-27] MEDS ORDERED: heparin 1,000 units/ml 10ml inj HE ONE ×2 (08:35)
--- NOTE | 2018-08-27 09:47 | NUR ---
Pt refused scheduled amlodipine, Nifedipine, and diltiazem. Pt stated that she does not take these medications that it would drop her blood pressure. I will communicate this to Dr. Diaz when he rounds on her.
[2018-08-27 11:00] VITALS: BP 140/66
[2018-08-27 15:00] VITALS: BP 97/76
[2018-08-27 15:15] VITALS: BP 147/76
--- NOTE | 2018-08-27 15:45 | NUR ---
Reviewed discharge instructions with pt including when to take home medications. No new prescriptions at this time. Pt is scheduled to rec. dialysis at [facility] tomorrow morning and pt is aware of this. Removed IV with canula intact. Tele monitor removed and patient taken to lobby via wheelchair with all of her belongings. Pt's vital signs within normal limits and pt alert and oriented X 4. Pt driven home by family member in private vehicle.
== END 2018-08-27 15:45 | disposition home or self-care (01) | DRG 192 ==
LOC: ER 11:19 → OBSVTOIN 15:21 → INTOOBSV 15:21 → PCU 3S 15:21 → CMPBEDREQ 08-24 19:43
PROVIDERS: ADMIT Internal Medicine Critical Care Medicine; ATTEND Internal Medicine Critical Care Medicine
PROC: 5A1D70Z Performance of Urinary Filtration, Intermittent, Less than 6 Hours Per Day (ICD-10-PCS; 2018-08-23)
PROC: 0WJB3ZZ Inspection of Left Pleural Cavity, Percutaneous Approach (ICD-10-PCS; 2018-08-24)
PROC: 0WJ93ZZ Inspection of Right Pleural Cavity, Percutaneous Approach (ICD-10-PCS; 2018-08-24)
PROC: 5A1D70Z Performance of Urinary Filtration, Intermittent, Less than 6 Hours Per Day (ICD-10-PCS; 2018-08-25)
PROC: 4A023N8 Measurement of Cardiac Sampling and Pressure, Bilateral, Percutaneous Approach (ICD-10-PCS; principal; 2018-08-26)
PROC: B2111ZZ Fluoroscopy of Multiple Coronary Arteries using Low Osmolar Contrast (ICD-10-PCS; 2018-08-26)
PROC: B2151ZZ Fluoroscopy of Left Heart using Low Osmolar Contrast (ICD-10-PCS; 2018-08-26)
PROC: 5A1D70Z Performance of Urinary Filtration, Intermittent, Less than 6 Hours Per Day (ICD-10-PCS; 2018-08-27)
DX: I13.2 Hypertensive heart and chronic kidney disease with heart failure and with stage 5 chronic kidney disease, or end stage renal disease (principal); J91.8 Pleural effusion in other conditions classified elsewhere; I71.2 Thoracic aortic aneurysm, without rupture; N18.6 End stage renal disease; F12.90 Cannabis use, unspecified, uncomplicated; I25.10 Atherosclerotic heart disease of native coronary artery without angina pectoris; J98.11 Atelectasis; I34.0 Nonrheumatic mitral (valve) insufficiency; I50.31 Acute diastolic (congestive) heart failure; F15.10 Other stimulant abuse, uncomplicated; Z82.0 Family history of epilepsy and other diseases of the nervous system; Z82.3 Family history of stroke; Z82.41 Family history of sudden cardiac death; Z82.49 Family history of ischemic heart disease and other diseases of the circulatory system; Z82.5 Family history of asthma and other chronic lower respiratory diseases; Z79.4 Long term (current) use of insulin; Z83.3 Family history of diabetes mellitus; Z86.73 Personal history of transient ischemic attack (TIA), and cerebral infarction without residual deficits; Z86.74 Personal history of sudden cardiac arrest; Z87.891 Personal history of nicotine dependence; Z88.8 Allergy status to other drugs, medicaments and biological substances; Z95.1 Presence of aortocoronary bypass graft; Z99.2 Dependence on renal dialysis; Z87.01 Personal history of pneumonia (recurrent)
CPT/HCPCS: 36415; 71045; 71046; 71250; 74176; 76705; 80048; 80053; 80305; 82803; 84484; 85014; 85025; 85610; 85730; 87070; 93005; 93306; 93458; 94640; 94760; 96365; 96375; 99152; 99153; 99285; A4620; A6257; C1760; C1769; G0257; G0378; J0360; J0885; J1644; J1940; J2001; J2250; J3010; J3490; Q9963; Q9967

== ENCOUNTER 2018-08-27 21:25 | Emergency (ER) | payer MEDICAID ==
[~2018-08-27] VITALS: Ht 175.3 cm; Wt 67.0 kg
[~2018-08-27 21:25] MED LIST changes: +AMLO2.5T2 PO; +FOLI0.8T7 PO; +HYDR-4070 PO; +NIFE30TA95 PO; +PHO667C PO; +ZAR2.5T PO
--- NOTE | 2018-08-27 21:26 | NUR ---
RICK SUE CANCELED LAB DRAW, WILL DRAW UPON HIS REQUEST
[2018-08-28 00:18] VITALS: BP 149/85
== END 2018-08-28 00:01 | disposition home or self-care (01) ==
LOC: ER 21:25
DX: R07.89 Other chest pain (principal); J90 Pleural effusion, not elsewhere classified; I25.10 Atherosclerotic heart disease of native coronary artery without angina pectoris; I13.2 Hypertensive heart and chronic kidney disease with heart failure and with stage 5 chronic kidney disease, or end stage renal disease; N18.6 End stage renal disease; I50.9 Heart failure, unspecified; F12.90 Cannabis use, unspecified, uncomplicated; F15.90 Other stimulant use, unspecified, uncomplicated; Z99.2 Dependence on renal dialysis; Z98.61 Coronary angioplasty status; Z95.1 Presence of aortocoronary bypass graft; Z98.890 Other specified postprocedural states; Z88.8 Allergy status to other drugs, medicaments and biological substances; Z79.899 Other long term (current) drug therapy
CPT/HCPCS: 71045; 93005; 99283

== ENCOUNTER 2019-01-07 11:03 | Emergency (ER) | payer MEDICAID ==
[~2019-01-07] VITALS: Ht 170.2 cm; Wt 63.0 kg
[~2019-01-07 11:03] MED LIST changes: -AMLO2.5T2 PO; -DILT180C66 PO
[2019-01-07 12:14] LABS: BASOPHILS # (AUTO) 0.1 X10'3 (0-0.2); EOSINOPHILS # (AUTO) 0.1 X10'3 (0-0.9); HEMOGLOBIN 10.8 g/dl (12.0-16.0); NEUTROPHILS # (AUTO) 5.7 X10'3 (1.8-7.7)
[2019-01-07 12:16] LABS: BASOPHILS % (AUTO) 1.3 % (0-1); EOSINOPHILS % (AUTO) 1.7 % (0-6); HEMATOCRIT 31.6 % (35.0-45.0); LYMPHOCYTES % (AUTO) 13.4 % (21-51); MEAN CORPUSCULAR HEMOGLOBIN 33.9 PG (27.0-31.0); MEAN CORPUSCULAR HGB CONC 34.1 g/dL (33.0-36.5); MEAN CORPUSCULAR VOLUME 99.6 FL (78-98); MEAN PLATELET VOLUME 8.6 FL (7.4-10.4); MONOCYTES # (AUTO) 0.6 X10'3 (0-0.9); MONOCYTES % (AUTO) 8.3 % (2-12); NEUTROPHILS % (AUTO) 75.3 % (42-75); PLATELET COUNT 264 X10'3 (140-440); RED BLOOD COUNT 3.18 X10'6 (4.20-5.60); RED CELL DISTRIBUTION WIDTH 16.3 % (11.5-14.5); WHITE BLOOD COUNT 7.5 X10'3 (4.5-11.0)
[2019-01-07 12:25] LABS: ALANINE AMINOTRANSFERASE 27 U/L (12-78); ALBUMIN 3.2 G/DL (3.4-5.0); ALBUMIN/GLOBULIN RATIO 0.9 (1.1-1.5); ALKALINE PHOSPHATASE 63 IU/L (46-116); ANION GAP 9 (8-16); ASPARTATE AMINO TRANSFERASE 29 U/L (10-37); BILIRUBIN,TOTAL 1.3 MG/DL (0.1-1.0); BLOOD UREA NITROGEN 37 MG/DL (7-18); BUN/CREATININE RATIO 6.1 (6.6-38.0); CALCIUM 8.9 MG/DL (8.5-10.1); CHLORIDE 100 MMOL/L (99-107); CREATININE 6.11 MG/DL (0.40-0.90); GLUCOSE 155 MG/DL (70-104); POTASSIUM 4.2 MMOL/L (3.5-5.1); SODIUM 137 MMOL/L (135-145); TOTAL CARBON DIOXIDE 27.7 MMOL/L (24-32); TOTAL PROTEIN 6.8 G/DL (6.4-8.2); eGFR 9 ML/MIN
[2019-01-07 12:55] LABS: PARTIAL THROMBOPLASTIN TIME 26 SECONDS (22-32)
[2019-01-07] MEDS ORDERED: hydrALAZINE 20mg/ml inj. IV ONE ×2 (13:45→14:05)
[2019-01-07] MEDS ORDERED: diltiazem-D5W 125mg/125ml 125 ML IV SCH (13:50)
[2019-01-07] MEDS ORDERED: diltiazem-NS 100mg/100ml 100 ML IV SCH (13:55)
[2019-01-07] MEDS ORDERED: furosemide 10 MG/1 ML 10ml inj IV ONE (14:00)
[2019-01-07] MEDS ORDERED: furosemide 20MG tablet PO ONE (14:05)
[2019-01-07] MEDS ORDERED: hydrALAZINE 25 MG tablet PO ONE (14:25)
[2019-01-07] MEDS ORDERED: labetalol 100mg tablet PO ONE (15:05)
[2019-01-07 15:17] VITALS: BP 238/104
== END 2019-01-07 15:22 | disposition home or self-care (01) ==
LOC: ER 11:04
DX: I13.0 Hypertensive heart and chronic kidney disease with heart failure and stage 1 through stage 4 chronic kidney disease, or unspecified chronic kidney disease (principal); N18.9 Chronic kidney disease, unspecified; I50.9 Heart failure, unspecified; I25.10 Atherosclerotic heart disease of native coronary artery without angina pectoris; F12.90 Cannabis use, unspecified, uncomplicated; F15.90 Other stimulant use, unspecified, uncomplicated; Z99.2 Dependence on renal dialysis; Z87.01 Personal history of pneumonia (recurrent); Z95.5 Presence of coronary angioplasty implant and graft; Z95.1 Presence of aortocoronary bypass graft; Z98.890 Other specified postprocedural states; Z88.8 Allergy status to other drugs, medicaments and biological substances; Z79.899 Other long term (current) drug therapy
CPT/HCPCS: 36415; 71046; 80053; 83880; 84145; 84484; 85025; 85610; 85730; 93005; 99284; J0360; J3490

== ENCOUNTER 2019-02-28 23:14 | Emergency (ER) | payer MEDICAID ==
[~2019-02-28] VITALS: Ht 172.7 cm; Wt 65.0 kg
[2019-02-28] MEDS ORDERED: levoFLOXACIN-Levaquin 750MG/D5 150 ML IV ONE (23:45)
[2019-02-28] MEDS ORDERED: hydrALAZINE 20mg/ml inj. IV ONE (23:45)
[2019-03-01 00:15] LABS: BASOPHILS % (AUTO) 0.6 % (0-1); EOSINOPHILS # (AUTO) 0.2 X10'3 (0-0.9); EOSINOPHILS % (AUTO) 3.4 % (0-6); HEMATOCRIT 30.4 % (35.0-45.0); HEMOGLOBIN 10.5 g/dl (12.0-16.0); LYMPHOCYTES # (AUTO) 1.1 X10'3 (1.1-4.8); LYMPHOCYTES % (AUTO) 16.6 % (21-51); MEAN CORPUSCULAR HEMOGLOBIN 35.2 PG (27.0-31.0); MEAN CORPUSCULAR HGB CONC 34.5 g/dL (33.0-36.5); MEAN CORPUSCULAR VOLUME 102.3 FL (78-98); MEAN PLATELET VOLUME 8.3 FL (7.4-10.4); MONOCYTES # (AUTO) 0.4 X10'3 (0-0.9); MONOCYTES % (AUTO) 6.1 % (2-12); NEUTROPHILS # (AUTO) 4.9 X10'3 (1.8-7.7); NEUTROPHILS % (AUTO) 73.3 % (42-75); PLATELET COUNT 324 X10'3 (140-440); RED BLOOD COUNT 2.97 X10'6 (4.20-5.60); RED CELL DISTRIBUTION WIDTH 15.8 % (11.5-14.5); WHITE BLOOD COUNT 6.7 X10'3 (4.5-11.0)
[2019-03-01 00:34] LABS: ALANINE AMINOTRANSFERASE 29 U/L (12-78); ALBUMIN 3.7 G/DL (3.4-5.0); ALBUMIN/GLOBULIN RATIO 1.1 (1.1-1.5); ALKALINE PHOSPHATASE 59 IU/L (46-116); ANION GAP 11 (8-16); ASPARTATE AMINO TRANSFERASE 35 U/L (10-37); BILIRUBIN,TOTAL 1.2 MG/DL (0.1-1.0); BLOOD UREA NITROGEN 70 MG/DL (7-18); BUN/CREATININE RATIO 8.4 (6.6-38.0); CALCIUM 9.6 MG/DL (8.5-10.1); CHLORIDE 100 MMOL/L (99-107); GLUCOSE 100 MG/DL (70-104); SODIUM 138 MMOL/L (135-145); TOTAL CARBON DIOXIDE 27.3 MMOL/L (24-32); TOTAL PROTEIN 7.1 G/DL (6.4-8.2); eGFR 6 ML/MIN
--- NOTE | 2019-03-01 01:22 | NUR ---
Patient resting comfortably upright in bed. She requests black coffee. Decaf provided.
[2019-03-01] MEDS ORDERED: furosemide 10 MG/1 ML 10ml inj IV ONE (02:40)
[2019-03-01] MEDS ORDERED: LEVO750T21 PO (02:41)
--- NOTE | 2019-03-01 02:41 | NUR ---
Patient states she needs to use the restroom. Commode provided. Patient becomes short of breath getting out of bed.
--- NOTE | 2019-03-01 04:15 | NUR ---
Patient is sleeping comfortably in an upright position.
--- NOTE | 2019-03-01 05:16 | NUR ---
Patient requests warm water and towels to wash up with. Both are provided.
[2019-03-01 05:39] VITALS: BP 142/72
== END 2019-03-01 05:43 | disposition home or self-care (01) ==
LOC: ER 23:15
DX: J18.9 Pneumonia, unspecified organism (principal); E87.70 Fluid overload, unspecified; I13.2 Hypertensive heart and chronic kidney disease with heart failure and with stage 5 chronic kidney disease, or end stage renal disease; N18.6 End stage renal disease; I50.9 Heart failure, unspecified; F12.90 Cannabis use, unspecified, uncomplicated; F15.90 Other stimulant use, unspecified, uncomplicated; I25.10 Atherosclerotic heart disease of native coronary artery without angina pectoris; Z99.2 Dependence on renal dialysis; Z95.5 Presence of coronary angioplasty implant and graft; Z95.1 Presence of aortocoronary bypass graft; Z98.890 Other specified postprocedural states; Z88.8 Allergy status to other drugs, medicaments and biological substances; Z79.899 Other long term (current) drug therapy
CPT/HCPCS: 36415; 71045; 80053; 83605; 83880; 84145; 84484; 85025; 87040; 93005; 96365; 96375; 99284; J0360; J1940; J1956

== ENCOUNTER 2019-03-28 10:22 | Inpatient (IN) | payer MEDICAID ==
[~2019-03-28] VITALS: Ht 172.7 cm; Wt 68.9 kg
[2019-03-28] MEDS ORDERED: acetaminophen 325mg tablet PO STA (10:42)
[2019-03-28] MEDS ORDERED: normal saline 1000ml 1,000 ML IV ONE (10:45)
[2019-03-28] MEDS ORDERED: hydrALAZINE 20mg/ml inj. IV ONE (10:45)
--- NOTE | 2019-03-28 11:16 | NUR ---
BP w/ med administration: 215/107; HR 98 (pulse ox)
[2019-03-28 11:28] LABS: BASOPHILS % (AUTO) 0.4 % (0-1); EOSINOPHILS # (AUTO) 0.1 X10'3 (0-0.9); EOSINOPHILS % (AUTO) 0.9 % (0-6); HEMATOCRIT 28.7 % (35.0-45.0); HEMOGLOBIN 9.7 g/dl (12.0-16.0); LYMPHOCYTES # (AUTO) 0.2 X10'3 (1.1-4.8); LYMPHOCYTES % (AUTO) 3.7 % (21-51); MEAN CORPUSCULAR HGB CONC 33.6 g/dL (33.0-36.5); MEAN CORPUSCULAR VOLUME 101.2 FL (78-98); MEAN PLATELET VOLUME 8.9 FL (7.4-10.4); MONOCYTES # (AUTO) 0.5 X10'3 (0-0.9); NEUTROPHILS # (AUTO) 4.9 X10'3 (1.8-7.7); PLATELET COUNT 224 X10'3 (140-440); RED BLOOD COUNT 2.84 X10'6 (4.20-5.60); WHITE BLOOD COUNT 5.7 X10'3 (4.5-11.0)
[2019-03-28] MEDS ORDERED: oseltamivir phos 75mg capsule PO ONE (11:50)
[2019-03-28] MEDS ORDERED: CefTRIAXone 2gm/D5W 50ml 50 ML IV ONE (11:50)
[2019-03-28 11:58] LABS: CLARITY,URINE SLIGHTLY CLOUDY (Clear); COLOR,URINE YELLOW (Yellow); GLUCOSE, URINE NEGATIVE (Neg); KETONES,URINE NEGATIVE (Neg); LEUKOCYTE ESTERASE ,URINE NEGATIVE (Neg); NITRITES, URINE NEGATIVE (Neg); OCCULT BLOOD,URINE MODERATE (Neg); PH,URINE 8.5 (4.8-8.0); PROTEIN,URINE 100 mg/dl (Neg); UROBILINOGEN,URINE 0.2 E.U/dL (0.2-1.0)
[2019-03-28 12:10] LABS: UA COLLECTION TYPE STRAIGHT CATH
[2019-03-28 12:15] LABS: BACTERIA,URINE NONE SEEN /HPF (Neg); MUCUS STRANDS NONE SEEN /LPF (Neg); RBC,URINE 0-2 /HPF (0-2); RENAL CELLS, URINE MANY /HPF; SQUAMOUS EPITHELIAL CELL,UR FEW /LPF (FEW); TRANSITIONAL EPI CELLS,URINE FEW /HPF; WBC,URINE 0-4 /HPF (0-4)
[2019-03-28] MEDS: normal saline 1000ml 1,000 ML IV SCH ×2 (12:20→20:45)
[2019-03-28 12:22] LABS: ALANINE AMINOTRANSFERASE 20 U/L (12-78); ALBUMIN 3.4 G/DL (3.4-5.0); ALKALINE PHOSPHATASE 60 IU/L (46-116); ANION GAP 10 (8-16); ASPARTATE AMINO TRANSFERASE 24 U/L (10-37); BILIRUBIN,TOTAL 0.9 MG/DL (0.1-1.0); BLOOD UREA NITROGEN 40 MG/DL (7-18); BUN/CREATININE RATIO 5.8 (6.6-38.0); CALCIUM 9.1 MG/DL (8.5-10.1); CHLORIDE 99 MMOL/L (99-107); GLUCOSE 103 MG/DL (70-104); POTASSIUM 4.6 MMOL/L (3.5-5.1); SODIUM 137 MMOL/L (135-145); TOTAL CARBON DIOXIDE 28.2 MMOL/L (24-32); TOTAL PROTEIN 6.9 G/DL (6.4-8.2); eGFR 8 ML/MIN
[2019-03-28] MEDS ORDERED: epoetin 20,000 units/ml inj IV ONE (12:35)
[2019-03-28] MEDS ORDERED: magnesium hydroxide 30ml (MOM) UD suspension PO PRN (12:35)
[2019-03-28] MEDS ORDERED: acetaminophen 325mg tablet PO PRN (12:35)
[2019-03-28] MEDS ORDERED: LIDOcaine 1% (10mg/ml) 2ml vial SQ ONE (12:35)
[2019-03-28] MEDS ORDERED: ondansetron/PF 4mg/2ml inj IV PRN (12:35)
[2019-03-28] MEDS ORDERED: heparin 1,000 units/ml 10ml inj IV ONE (12:35)
[2019-03-28] MEDS: oseltamivir phos 75mg capsule PO SCH ×2 (12:35→19:11)
[2019-03-28] MEDS ORDERED: DILT120C10 PO (15:03)
[2019-03-28] MEDS: HYDROcodone/acetaminophen 10/325mg tab PO PRN ×2 (15:07→19:28)
[2019-03-28 18:00] VITALS: BP 200/98
[2019-03-28] MEDS: metolazone 2.5mg tablet PO SCH (18:08)
--- NOTE | 2019-03-28 18:30 | NUR ---
Patient in room PCU 3008. I have received report from Sultana ABURTO and had the opportunity to ask questions and assume patient care.
[2019-03-28] MEDS: furosemide 40mg tablet PO SCH (19:10)
[2019-03-28] MEDS: docusate sod 100mg capsule PO SCH (19:10)
[2019-03-28] MEDS: heparin, porcine 5000 units/ml vial SQ SCH (19:10)
[2019-03-28] MEDS: hydrALAZINE 25 MG tablet PO SCH (19:10)
[2019-03-28] MEDS: calcium acetate 667mg (PhosLO) capsule PO SCH (19:11)
[2019-03-28] MEDS: labetalol 100mg tablet PO SCH (19:11)
[2019-03-28 22:00] VITALS: BP 166/87
[2019-03-29 01:39] LABS: ALANINE AMINOTRANSFERASE 20 U/L (12-78); ALBUMIN 3.1 G/DL (3.4-5.0); ALBUMIN/GLOBULIN RATIO 0.9 (1.1-1.5); ALKALINE PHOSPHATASE 61 IU/L (46-116); ANION GAP 11 (8-16); ASPARTATE AMINO TRANSFERASE 25 U/L (10-37); BILIRUBIN,TOTAL 0.7 MG/DL (0.1-1.0); BLOOD UREA NITROGEN 48 MG/DL (7-18); BUN/CREATININE RATIO 6.3 (6.6-38.0); CALCIUM 8.7 MG/DL (8.5-10.1); CHLORIDE 102 MMOL/L (99-107); CREATININE 7.64 MG/DL (0.40-0.90); GLUCOSE 112 MG/DL (70-104); PHOSPHORUS 6.5 MG/DL (2.3-4.5); POTASSIUM 4.5 MMOL/L (3.5-5.1); SODIUM 139 MMOL/L (135-145); TOTAL CARBON DIOXIDE 26.1 MMOL/L (24-32); TOTAL PROTEIN 6.4 G/DL (6.4-8.2); eGFR 7 ML/MIN
[2019-03-29 01:41] LABS: BASOPHILS % (AUTO) 0.9 % (0-1); EOSINOPHILS % (AUTO) 0.1 % (0-6); HEMATOCRIT 26.5 % (35.0-45.0); LYMPHOCYTES # (AUTO) 0.3 X10'3 (1.1-4.8); LYMPHOCYTES % (AUTO) 5.4 % (21-51); MEAN CORPUSCULAR HEMOGLOBIN 34.7 PG (27.0-31.0); MEAN CORPUSCULAR HGB CONC 34.1 g/dL (33.0-36.5); MEAN PLATELET VOLUME 8.8 FL (7.4-10.4); MONOCYTES # (AUTO) 0.4 X10'3 (0-0.9); MONOCYTES % (AUTO) 8.3 % (2-12); NEUTROPHILS # (AUTO) 4.4 X10'3 (1.8-7.7); NEUTROPHILS % (AUTO) 85.3 % (42-75); PLATELET COUNT 192 X10'3 (140-440); RED CELL DISTRIBUTION WIDTH 15.6 % (11.5-14.5); WHITE BLOOD COUNT 5.2 X10'3 (4.5-11.0)
[2019-03-29 02:00] VITALS: BP 215/101
[2019-03-29] MEDS ORDERED: hydrALAZINE 20mg/ml inj. IV ONE (02:35)
[2019-03-29] MEDS: HYDROcodone/acetaminophen 10/325mg tab PO PRN ×3 (02:51→15:55)
--- NOTE | 2019-03-29 05:02 | NUR ---
Notified PURCHASING INTERN of patient BP of 215/101. PURCHASING INTERN ordered PRN Hydralazine PRN. Administered Hydralazine and Spearman for pain. Retake of BP was 204/89. PURCHASING INTERN ordered to give morning dose of Cardizem now. Pt is to have hemodialysis today.
[2019-03-29] MEDS ORDERED: diltiazem CD 120mg capsule (once-daily) PO ONE (05:10)
[2019-03-29] MEDS: diltiazem CD 120mg capsule (once-daily) PO SCH (05:11)
--- NOTE | 2019-03-29 05:12 | NUR ---
Non administered 0800 dose of Cardizem due to CUSTOM MILLER ordering dose to be given now.
[2019-03-29 06:00] VITALS: BP 198/97
--- NOTE | 2019-03-29 06:15 | NUR ---
Patient in room PCU 3008. I have received report from Aide ABURTO and had the opportunity to ask questions and assume patient care. Patient was awake and oriented upon shift change. Patient is c/o pain and has wheezing and slight SOB. Orientee CRISELDA Hernández called [facility], new orders obtained for respiratory trxts. Paged respiratory for trxt. Will check on pain medications and provide per MD order. Will continue to monitor.
--- NOTE | 2019-03-29 06:27 | NUR ---
Problems reprioritized. Patient report given, questions answered & plan of care reviewed with Sultana ABURTO.
[2019-03-29] MEDS ORDERED: ipratropium/albuterol 3ml nebule NEB PRN (06:45)
--- NOTE | 2019-03-29 06:53 | NUR ---
Called Laya Graves for pt's wheezing & sob, obtained order for tx. Paged Respiratory. [id number] Cordell Eisenberg : Pt SOB & wheezing, and she needs respiratory treatment. Thanks!
[2019-03-29] MEDS: labetalol 100mg tablet PO SCH ×2 (07:52→19:55)
[2019-03-29] MEDS: docusate sod 100mg capsule PO SCH ×2 (07:52→21:36)
[2019-03-29] MEDS: folic acid/vitamin B complex w/vitamin C 0.8mg tablet PO SCH (07:53)
[2019-03-29] MEDS: furosemide 40mg tablet PO SCH ×2 (07:53→19:55)
[2019-03-29] MEDS: calcium acetate 667mg (PhosLO) capsule PO SCH ×3 (07:54→18:00)
[2019-03-29] MEDS ORDERED: normal saline 1000ml 250 ML IV PRN (08:00)
[2019-03-29] MEDS: hydrALAZINE 25 MG tablet PO SCH ×2 (08:00→19:55)
[2019-03-29] MEDS ORDERED: epoetin 20,000 units/ml inj IV ONE (08:00)
[2019-03-29] MEDS ORDERED: heparin 1,000 units/ml 10ml inj IV ONE (08:00)
[2019-03-29] MEDS: metolazone 2.5mg tablet PO SCH (08:00)
[2019-03-29] MEDS ORDERED: LIDOcaine 1% (10mg/ml) 2ml vial SQ ONE (08:00)
[2019-03-29] MEDS: oseltamivir phos 75mg capsule PO SCH ×2 (08:18→21:36)
[2019-03-29] MEDS: ipratropium 0.5 MG/2.5ML nebule IH SCH ×5 (09:01→22:52)
--- NOTE | 2019-03-29 09:47 | NUR ---
Lungs are clear after the breathing treatment; pt stated that she felt better
--- NOTE | 2019-03-29 09:50 | NUR ---
Blood pressure improved, 153/72 after bp meds; Pt has scheduled hemodialysis today; pt denied pain & SOB
[2019-03-29] MEDS: heparin, porcine 5000 units/ml vial SQ SCH ×2 (10:21→20:00)
[2019-03-29] MEDS: normal saline 1000ml 1,000 ML IV SCH (10:22)
[2019-03-29 11:00] VITALS: BP 148/78
--- NOTE | 2019-03-29 12:27 | NUR ---
Laya Holbrook. notified of pt's 3rd EJ not being patent. ordered to have IV access on hand only. Paged PICC Nurse. [phone] [id number] : Cordell Eisenberg : ordered to have PIV place on pt's HAND ONLY (per ). Thanks!
--- NOTE | 2019-03-29 12:45 | NUR ---
Attempted IV start in hand, pt non compliant with holding still during procedure, unable to complete. Reassessed EJ line, after repositioning line it flushes easily. IV site resecured with tegaderma and tape. Sultana ABURTO notified of line patency. JOSE EDUARDO PICC RN
[2019-03-29 15:00] VITALS: BP 177/83
[2019-03-29] MEDS ORDERED: LIDOcaine/PRILOcaine 5gm cream TP PRN (16:05)
[2019-03-29] MEDS: benzocaine/menthol oral lozeng 1 EACH BOX MM PRN (16:44)
[2019-03-29 18:00] VITALS: BP 185/88
--- NOTE | 2019-03-29 18:30 | NUR ---
Patient in room PCU 3008. I have received report from Sultana ABURTO and Betty ABURTO and had the opportunity to ask questions and assume patient care.
--- NOTE | 2019-03-29 18:33 | NUR ---
Problems reprioritized. Pt is stable on shift change; patient report given, questions answered & plan of care reviewed with CRISELDA Hicks.
--- NOTE | 2019-03-29 18:41 | NUR ---
Orientee documentation: I have reviewed and agree with interventions, assessments performed and documented by Betty ABURTO. Orientee Medication Administration: For this medication-pass time frame, medication were reviewed, dispensed, administered and documented per hospital policy by Betty ABURTO .
--- NOTE | 2019-03-29 21:30 | NUR ---
Finished up assessment around 2129 after dialysis nurse and visitor left.
[2019-03-29 22:00] VITALS: BP 164/72
[2019-03-29] MEDS ORDERED: saliva stimulant agent 45ml spray MM PRN (23:55)
--- NOTE | 2019-03-29 23:56 | NUR ---
Patient requesting biotene for her mouth, stating that chloraseptic lozenges ordered for sore throat do not work. Patient insistent on having the biotene. Order obtained from FLOOR SCRAPER for biotene swish and swallow.
[2019-03-30] MEDS: benzocaine/menthol oral lozeng 1 EACH BOX MM PRN (00:34)
[2019-03-30 02:00] VITALS: BP 161/79
[2019-03-30] MEDS: HYDROcodone/acetaminophen 10/325mg tab PO PRN ×4 (02:12→20:36)
[2019-03-30] MEDS: ipratropium 0.5 MG/2.5ML nebule IH SCH ×6 (03:05→23:53)
[2019-03-30 06:00] VITALS: BP 173/89
--- NOTE | 2019-03-30 06:30 | NUR ---
Lab came out and stated that patient is refusing to allow for draw this AM. Lab stated they will try again in 2 hrs.
--- NOTE | 2019-03-30 06:44 | NUR ---
Report given to
--- NOTE | 2019-03-30 07:15 | NUR ---
Patient in room PCU 3008. I have received report from Ruth ABURTO and had the opportunity to ask questions and assume patient care.
[2019-03-30] MEDS: oseltamivir phos 75mg capsule PO SCH ×2 (08:00→20:36)
[2019-03-30] MEDS: hydrALAZINE 25 MG tablet PO SCH ×2 (08:01→20:36)
[2019-03-30] MEDS: furosemide 40mg tablet PO SCH ×2 (08:02→20:39)
[2019-03-30] MEDS: docusate sod 100mg capsule PO SCH ×2 (08:02→20:36)
[2019-03-30] MEDS: folic acid/vitamin B complex w/vitamin C 0.8mg tablet PO SCH (08:02)
[2019-03-30] MEDS: metolazone 2.5mg tablet PO SCH (08:02)
[2019-03-30] MEDS: diltiazem CD 120mg capsule (once-daily) PO SCH (08:02)
[2019-03-30] MEDS: labetalol 100mg tablet PO SCH ×2 (08:02→20:36)
[2019-03-30] MEDS: calcium acetate 667mg (PhosLO) capsule PO SCH ×3 (08:02→17:32)
[2019-03-30] MEDS: heparin, porcine 5000 units/ml vial SQ SCH ×2 (08:03→20:39)
[2019-03-30 08:51] LABS: BASOPHILS % (AUTO) 1.3 % (0-1); EOSINOPHILS % (AUTO) 0.4 % (0-6); HEMATOCRIT 26.8 % (35.0-45.0); HEMOGLOBIN 9.1 g/dl (12.0-16.0); LYMPHOCYTES # (AUTO) 0.5 X10'3 (1.1-4.8); LYMPHOCYTES % (AUTO) 18.4 % (21-51); MEAN CORPUSCULAR HEMOGLOBIN 34.6 PG (27.0-31.0); MEAN CORPUSCULAR VOLUME 101.9 FL (78-98); MEAN PLATELET VOLUME 8.8 FL (7.4-10.4); MONOCYTES # (AUTO) 0.3 X10'3 (0-0.9); MONOCYTES % (AUTO) 11.1 % (2-12); NEUTROPHILS # (AUTO) 1.8 X10'3 (1.8-7.7); NEUTROPHILS % (AUTO) 68.8 % (42-75); PLATELET COUNT 171 X10'3 (140-440); RED BLOOD COUNT 2.63 X10'6 (4.20-5.60); RED CELL DISTRIBUTION WIDTH 15.9 % (11.5-14.5); WHITE BLOOD COUNT 2.6 X10'3 (4.5-11.0)
[2019-03-30 09:04] LABS: ALANINE AMINOTRANSFERASE 23 U/L (12-78); ALBUMIN 2.8 G/DL (3.4-5.0); ALBUMIN/GLOBULIN RATIO 0.9 (1.1-1.5); ALKALINE PHOSPHATASE 54 IU/L (46-116); ANION GAP 9 (8-16); ASPARTATE AMINO TRANSFERASE 35 U/L (10-37); BILIRUBIN,TOTAL 0.7 MG/DL (0.1-1.0); BLOOD UREA NITROGEN 27 MG/DL (7-18); BUN/CREATININE RATIO 5.5 (6.6-38.0); CHLORIDE 102 MMOL/L (99-107); CREATININE 4.89 MG/DL (0.40-0.90); GLUCOSE 153 MG/DL (70-104); MAGNESIUM 1.9 MG/DL (1.5-2.4); PHOSPHORUS 3.9 MG/DL (2.3-4.5); POTASSIUM 3.6 MMOL/L (3.5-5.1); SODIUM 137 MMOL/L (135-145); TOTAL CARBON DIOXIDE 26.2 MMOL/L (24-32); TOTAL PROTEIN 5.9 G/DL (6.4-8.2); eGFR 11 ML/MIN
[2019-03-30 09:39] LABS: LARGE PLATELETS FEW; PLATELET ESTIMATE NORMAL; TOTAL CELLS COUNTED 100
[2019-03-30 09:40] LABS: ANISOCYTOSIS 1+
[2019-03-30 11:00] VITALS: BP 138/70
[2019-03-30 15:00] VITALS: BP 151/62
--- NOTE | 2019-03-30 15:17 | NUR ---
Patient requesting to speak with case management about insurance and covering dialysis costs. Spoke with Anabell from case management who states that she will see the patient prior to discharge tomorrow after dialysis.
[2019-03-30 18:00] VITALS: BP 179/80
--- NOTE | 2019-03-30 18:22 | NUR ---
Problems reprioritized. Patient report given, questions answered & plan of care reviewed with Karen ABURTO.
[2019-03-30 22:00] VITALS: BP 149/88
[2019-03-31 02:00] VITALS: BP 155/88
[2019-03-31] MEDS: HYDROcodone/acetaminophen 10/325mg tab PO PRN ×3 (02:17→19:57)
[2019-03-31] MEDS: ipratropium 0.5 MG/2.5ML nebule IH SCH ×5 (04:09→19:11)
[2019-03-31 05:41] LABS: BASOPHILS % (AUTO) 1.6 % (0-1); EOSINOPHILS # (AUTO) 0.1 X10'3 (0-0.9); EOSINOPHILS % (AUTO) 4.4 % (0-6); HEMATOCRIT 24.9 % (35.0-45.0); HEMOGLOBIN 8.4 g/dl (12.0-16.0); LYMPHOCYTES # (AUTO) 0.6 X10'3 (1.1-4.8); LYMPHOCYTES % (AUTO) 30.7 % (21-51); MEAN CORPUSCULAR HEMOGLOBIN 33.8 PG (27.0-31.0); MEAN CORPUSCULAR HGB CONC 33.7 g/dL (33.0-36.5); MEAN CORPUSCULAR VOLUME 100.3 FL (78-98); MEAN PLATELET VOLUME 9.5 FL (7.4-10.4); MONOCYTES # (AUTO) 0.3 X10'3 (0-0.9); MONOCYTES % (AUTO) 15.8 % (2-12); NEUTROPHILS % (AUTO) 47.5 % (42-75); PLATELET COUNT 168 X10'3 (140-440); RED BLOOD COUNT 2.49 X10'6 (4.20-5.60); RED CELL DISTRIBUTION WIDTH 15.2 % (11.5-14.5); WHITE BLOOD COUNT 2.1 X10'3 (4.5-11.0)
[2019-03-31 05:53] LABS: ALANINE AMINOTRANSFERASE 22 U/L (12-78); ALBUMIN 2.6 G/DL (3.4-5.0); ALBUMIN/GLOBULIN RATIO 0.9 (1.1-1.5); ALKALINE PHOSPHATASE 48 IU/L (46-116); ANION GAP 7 (8-16); ASPARTATE AMINO TRANSFERASE 30 U/L (10-37); BILIRUBIN,TOTAL 0.5 MG/DL (0.1-1.0); BLOOD UREA NITROGEN 36 MG/DL (7-18); BUN/CREATININE RATIO 5.8 (6.6-38.0); CALCIUM 8.1 MG/DL (8.5-10.1); CHLORIDE 100 MMOL/L (99-107); CREATININE 6.21 MG/DL (0.40-0.90); GLUCOSE 97 MG/DL (70-104); MAGNESIUM 2.1 MG/DL (1.5-2.4); PHOSPHORUS 4.5 MG/DL (2.3-4.5); POTASSIUM 3.7 MMOL/L (3.5-5.1); SODIUM 136 MMOL/L (135-145); TOTAL CARBON DIOXIDE 28.7 MMOL/L (24-32); TOTAL PROTEIN 5.6 G/DL (6.4-8.2); eGFR 8 ML/MIN
[2019-03-31 06:00] VITALS: BP 149/81
--- NOTE | 2019-03-31 06:14 | NUR ---
Problems reprioritized. Patient report given, questions answered & plan of care reviewed with CRISELDA WILSON.
--- NOTE | 2019-03-31 06:25 | NUR ---
Patient in room PCU 3008. I have received report from Karen ABURTO and had the opportunity to ask questions and assume patient care.
[2019-03-31] MEDS: folic acid/vitamin B complex w/vitamin C 0.8mg tablet PO SCH (07:45)
[2019-03-31] MEDS: metolazone 2.5mg tablet PO SCH (07:46)
[2019-03-31] MEDS: diltiazem CD 120mg capsule (once-daily) PO SCH (07:46)
[2019-03-31] MEDS: oseltamivir phos 75mg capsule PO SCH (07:46)
[2019-03-31] MEDS: hydrALAZINE 25 MG tablet PO SCH ×2 (07:46→19:55)
[2019-03-31] MEDS: calcium acetate 667mg (PhosLO) capsule PO SCH ×3 (07:46→18:00)
[2019-03-31] MEDS: docusate sod 100mg capsule PO SCH ×2 (07:47→19:55)
[2019-03-31] MEDS: labetalol 100mg tablet PO SCH ×2 (07:47→19:54)
[2019-03-31] MEDS: furosemide 40mg tablet PO SCH ×2 (07:47→19:55)
[2019-03-31] MEDS: heparin, porcine 5000 units/ml vial SQ SCH ×2 (07:48→19:56)
[2019-03-31] MEDS ORDERED: heparin 1,000 units/ml 10ml inj IV ONE (08:00)
[2019-03-31] MEDS ORDERED: normal saline 1000ml 250 ML IV PRN (08:00)
[2019-03-31] MEDS ORDERED: LIDOcaine 1% (10mg/ml) 2ml vial SQ ONE (08:00)
[2019-03-31] MEDS ORDERED: epoetin 20,000 units/ml inj IV ONE (08:00)
[2019-03-31 08:26] LABS: GIANT PLATELET FEW; LARGE PLATELETS FEW; PLATELET ESTIMATE NORMAL; TOTAL CELLS COUNTED 100
[2019-03-31 11:00] VITALS: BP 182/90
[2019-03-31] MEDS ORDERED: cloNIDine 0.1 mg tablet PO ONE (13:25)
--- NOTE | 2019-03-31 13:25 | NUR ---
reported elevated BP of 182/[address] Diaz, received orders to give 0.2mg clonidine x1 now
[2019-03-31] MEDS ORDERED: oseltamivir 30mg capsule PO SCH (13:51)
[2019-03-31] MEDS ORDERED: MESSAGE TO NURSING PO SCH (13:57)
[2019-03-31] MEDS ORDERED: HYDR-4070 PO (14:29)
[2019-03-31] MEDS ORDERED: OSEL30CA PO (14:29)
[2019-03-31 15:00] VITALS: BP 166/72
[2019-03-31 18:00] VITALS: BP 142/53
--- NOTE | 2019-03-31 18:30 | NUR ---
Patient in room PCU 3008. I have received report from CRISELDA Victor and had the opportunity to ask questions and assume patient care. Patient will receive dialysis treatment prior to discharge today.
--- NOTE | 2019-03-31 18:30 | NUR ---
Problems reprioritized. Patient report given, questions answered & plan of care reviewed with Yonatan ABURTO.
[2019-03-31] MEDS ORDERED: LIDOcaine/PRILOcaine 5gm cream TP ONE (19:50)
[2019-03-31 22:00] VITALS: BP 144/68
[2019-04-01] MEDS: ipratropium 0.5 MG/2.5ML nebule IH SCH ×3 (01:05→08:00)
[2019-04-01 02:00] VITALS: BP 148/71
[2019-04-01] MEDS: HYDROcodone/acetaminophen 10/325mg tab PO PRN (03:32)
[2019-04-01] MEDS ORDERED: oseltamivir phos 75mg capsule PO ONE (03:40)
[2019-04-01 05:36] LABS: ALANINE AMINOTRANSFERASE 21 U/L (12-78); ALBUMIN 2.7 G/DL (3.4-5.0); ALBUMIN/GLOBULIN RATIO 0.9 (1.1-1.5); ALKALINE PHOSPHATASE 48 IU/L (46-116); ANION GAP 7 (8-16); ASPARTATE AMINO TRANSFERASE 30 U/L (10-37); BILIRUBIN,TOTAL 0.5 MG/DL (0.1-1.0); BLOOD UREA NITROGEN 14 MG/DL (7-18); BUN/CREATININE RATIO 3.8 (6.6-38.0); CALCIUM 8.1 MG/DL (8.5-10.1); CHLORIDE 101 MMOL/L (99-107); CREATININE 3.68 MG/DL (0.40-0.90); GLUCOSE 134 MG/DL (70-104); MAGNESIUM 1.8 MG/DL (1.5-2.4); PHOSPHORUS 2.5 MG/DL (2.3-4.5); SODIUM 138 MMOL/L (135-145); TOTAL CARBON DIOXIDE 30.2 MMOL/L (24-32); TOTAL PROTEIN 5.8 G/DL (6.4-8.2); eGFR 16 ML/MIN
[2019-04-01 05:37] LABS: BASOPHILS % (AUTO) 1.3 % (0-1); EOSINOPHILS # (AUTO) 0.1 X10'3 (0-0.9); EOSINOPHILS % (AUTO) 2.7 % (0-6); HEMATOCRIT 24.7 % (35.0-45.0); HEMOGLOBIN 8.7 g/dl (12.0-16.0); LYMPHOCYTES # (AUTO) 0.7 X10'3 (1.1-4.8); LYMPHOCYTES % (AUTO) 24.9 % (21-51); MEAN CORPUSCULAR HEMOGLOBIN 34.4 PG (27.0-31.0); MEAN CORPUSCULAR HGB CONC 35.1 g/dL (33.0-36.5); MEAN CORPUSCULAR VOLUME 98.1 FL (78-98); MEAN PLATELET VOLUME 9.6 FL (7.4-10.4); MONOCYTES # (AUTO) 0.3 X10'3 (0-0.9); MONOCYTES % (AUTO) 11.6 % (2-12); NEUTROPHILS # (AUTO) 1.6 X10'3 (1.8-7.7); NEUTROPHILS % (AUTO) 59.5 % (42-75); PLATELET COUNT 174 X10'3 (140-440); RED BLOOD COUNT 2.52 X10'6 (4.20-5.60); RED CELL DISTRIBUTION WIDTH 15.1 % (11.5-14.5); WHITE BLOOD COUNT 2.7 X10'3 (4.5-11.0)
[2019-04-01 05:39] LABS: POTASSIUM 3.8 MMOL/L (3.5-5.1)
[2019-04-01 06:00] VITALS: BP 177/67
[2019-04-01 06:10] LABS: ANISOCYTOSIS 1+; PLATELET ESTIMATE NORMAL; POIKILOCYTOSIS 1+; POLYCHROMASIA 1+; TOTAL CELLS COUNTED 100
--- NOTE | 2019-04-01 06:36 | NUR ---
Patient in room PCU 3008. I have received report from Yonatan ABURTO and had the opportunity to ask questions and assume patient care.
[2019-04-01] MEDS: furosemide 40mg tablet PO SCH (07:26)
[2019-04-01] MEDS: folic acid/vitamin B complex w/vitamin C 0.8mg tablet PO SCH (07:26)
[2019-04-01] MEDS: calcium acetate 667mg (PhosLO) capsule PO SCH (07:26)
[2019-04-01] MEDS: hydrALAZINE 25 MG tablet PO SCH (07:26)
[2019-04-01] MEDS: labetalol 100mg tablet PO SCH (07:26)
[2019-04-01] MEDS: heparin, porcine 5000 units/ml vial SQ SCH (07:27)
[2019-04-01] MEDS: docusate sod 100mg capsule PO SCH (07:27)
[2019-04-01] MEDS: diltiazem CD 120mg capsule (once-daily) PO SCH (07:27)
[2019-04-01] MEDS: metolazone 2.5mg tablet PO SCH (07:27)
--- NOTE | 2019-04-01 10:30 | NUR ---
Pt is stable for discharge, discharge instructions reviewed w/ pt and sister all questions answered, new med prescription called in to [facility] [address] per pt preference, tele monitor 50 removed and returned, PIV removed and clean dry dressing in place, pt discharges at 1030 to home w/ sister, wheeled down to private vehicle with hospital staff, all belongings w/ pt at time of discharge.
== END 2019-04-01 10:30 | disposition home or self-care (01) | DRG 113 ==
LOC: ER 10:22 → ED HOLD 12:35 → PCU 3S 14:25
PROVIDERS: ADMIT Internal Medicine Critical Care Medicine; ATTEND Internal Medicine Critical Care Medicine
PROC: 5A1D70Z Performance of Urinary Filtration, Intermittent, Less than 6 Hours Per Day (ICD-10-PCS; principal; 2019-03-29)
PROC: 5A1D70Z Performance of Urinary Filtration, Intermittent, Less than 6 Hours Per Day (ICD-10-PCS; 2019-03-31)
DX: J10.1 Influenza due to other identified influenza virus with other respiratory manifestations (principal); I13.2 Hypertensive heart and chronic kidney disease with heart failure and with stage 5 chronic kidney disease, or end stage renal disease; N18.6 End stage renal disease; Z95.1 Presence of aortocoronary bypass graft; I25.10 Atherosclerotic heart disease of native coronary artery without angina pectoris; I34.0 Nonrheumatic mitral (valve) insufficiency; I50.9 Heart failure, unspecified; F12.90 Cannabis use, unspecified, uncomplicated; Z82.49 Family history of ischemic heart disease and other diseases of the circulatory system; Z98.61 Coronary angioplasty status; Z99.2 Dependence on renal dialysis; Z88.8 Allergy status to other drugs, medicaments and biological substances; Z79.899 Other long term (current) drug therapy
CPT/HCPCS: 36415; 71045; 71250; 80053; 81001; 83605; 83735; 83880; 84100; 84145; 85025; 87040; 87081; 87502; 87503; 93005; 94640; 94760; 96374; 96375; 99285; G0257; G0378; J0360; J0696; J1644; J2001; J7030; Q4081

== ENCOUNTER 2019-04-29 23:30 | Emergency (ER) | payer MEDICAID ==
[~2019-04-29] VITALS: Ht 172.7 cm; Wt 65.5 kg
[~2019-04-29 23:30] MED LIST changes: +DILT120C10 PO; -NIFE30TA95 PO; +OSEL30CA PO
[2019-04-29] MEDS ORDERED: hydrALAZINE 20mg/ml inj. IV ONE (23:45)
[2019-04-29] MEDS ORDERED: nitroGLYCERIN 0.4mg/hour patch TD ONE (23:45)
[2019-04-29] MEDS ORDERED: hyDRALAzine 10mg tablet PO SCH (23:45)
--- NOTE | 2019-04-29 23:57 | NUR ---
gave polo donahue
[2019-04-30 00:05] LABS: BASOPHILS % (AUTO) 0.2 % (0-1); EOSINOPHILS # (AUTO) 0.3 X10'3 (0-0.9); EOSINOPHILS % (AUTO) 4.5 % (0-6); HEMATOCRIT 26.9 % (35.0-45.0); LYMPHOCYTES # (AUTO) 1.1 X10'3 (1.1-4.8); LYMPHOCYTES % (AUTO) 16.3 % (21-51); MEAN CORPUSCULAR HEMOGLOBIN 34.6 PG (27.0-31.0); MEAN CORPUSCULAR HGB CONC 33.6 g/dL (33.0-36.5); MONOCYTES # (AUTO) 0.6 X10'3 (0-0.9); MONOCYTES % (AUTO) 8.1 % (2-12); NEUTROPHILS # (AUTO) 4.9 X10'3 (1.8-7.7); NEUTROPHILS % (AUTO) 70.9 % (42-75); PLATELET COUNT 286 X10'3 (140-440); RED BLOOD COUNT 2.61 X10'6 (4.20-5.60); RED CELL DISTRIBUTION WIDTH 16.7 % (11.5-14.5)
[2019-04-30 00:44] LABS: ALANINE AMINOTRANSFERASE 19 U/L (12-78); ALBUMIN 3.3 G/DL (3.4-5.0); ALKALINE PHOSPHATASE 71 IU/L (46-116); ANION GAP 9 (8-16); ASPARTATE AMINO TRANSFERASE 30 U/L (10-37); BILIRUBIN,TOTAL 0.8 MG/DL (0.1-1.0); BLOOD UREA NITROGEN 46 MG/DL (7-18); BUN/CREATININE RATIO 6.7 (6.6-38.0); CHLORIDE 103 MMOL/L (99-107); CREATININE 6.85 MG/DL (0.40-0.90); GLUCOSE 103 MG/DL (70-104); POTASSIUM 4.1 MMOL/L (3.5-5.1); SODIUM 141 MMOL/L (135-145); TOTAL CARBON DIOXIDE 29.1 MMOL/L (24-32); TOTAL PROTEIN 6.7 G/DL (6.4-8.2); eGFR 8 ML/MIN
--- NOTE | 2019-04-30 00:48 | NUR ---
pt is asleep
[2019-04-30] MEDS ORDERED: hyDRALAzine 10mg tablet PO SCH (00:55)
[2019-04-30] MEDS ORDERED: hydrALAZINE 20mg/ml inj. IV ONE (00:55)
--- NOTE | 2019-04-30 02:24 | NUR ---
AWOKE PT. SHE STATES THAT SHE TOOK ALL OF HER MEDICATIONS YESTERDAY/LAST NIGHT JUST LIKE SHE IS SUPPOSE TO.
[2019-04-30 03:00] VITALS: BP 185/96
== END 2019-04-30 03:02 | disposition home or self-care (01) ==
LOC: ER 23:31
DX: I13.2 Hypertensive heart and chronic kidney disease with heart failure and with stage 5 chronic kidney disease, or end stage renal disease (principal); N18.6 End stage renal disease; I50.9 Heart failure, unspecified; I25.10 Atherosclerotic heart disease of native coronary artery without angina pectoris; F12.90 Cannabis use, unspecified, uncomplicated; F15.90 Other stimulant use, unspecified, uncomplicated; Z95.1 Presence of aortocoronary bypass graft; Z98.890 Other specified postprocedural states; Z98.61 Coronary angioplasty status; Z88.8 Allergy status to other drugs, medicaments and biological substances; Z79.899 Other long term (current) drug therapy; Z99.2 Dependence on renal dialysis
CPT/HCPCS: 36415; 71045; 80053; 84484; 85025; 93005; 96374; 96376; 99285; J0360; 96375

== ENCOUNTER 2019-09-19 19:15 | Emergency (ER) | payer MEDICAID ==
[~2019-09-19] VITALS: Ht 175.3 cm; Wt 63.0 kg
[2019-09-19 19:57] LABS: BASOPHILS % (AUTO) 1.1 % (0-1); EOSINOPHILS # (AUTO) 0.1 X10'3 (0-0.9); EOSINOPHILS % (AUTO) 2.1 % (0-6); HEMATOCRIT 33.5 % (35.0-45.0); HEMOGLOBIN 11.1 g/dl (12.0-16.0); LYMPHOCYTES # (AUTO) 0.6 X10'3 (1.1-4.8); LYMPHOCYTES % (AUTO) 13.4 % (21-51); MEAN CORPUSCULAR HEMOGLOBIN 33.2 PG (27.0-31.0); MEAN CORPUSCULAR HGB CONC 33.1 g/dL (33.0-36.5); MEAN CORPUSCULAR VOLUME 100.3 FL (78-98); MONOCYTES # (AUTO) 0.3 X10'3 (0-0.9); MONOCYTES % (AUTO) 6.1 % (2-12); NEUTROPHILS # (AUTO) 3.5 X10'3 (1.8-7.7); NEUTROPHILS % (AUTO) 77.3 % (42-75); PLATELET COUNT 224 X10'3 (140-440); RED BLOOD COUNT 3.34 X10'6 (4.20-5.60); RED CELL DISTRIBUTION WIDTH 15.9 % (11.5-14.5); WHITE BLOOD COUNT 4.6 X10'3 (4.5-11.0)
[2019-09-19 20:11] LABS: ALANINE AMINOTRANSFERASE 20 U/L (12-78); ALBUMIN 3.6 G/DL (3.4-5.0); ALKALINE PHOSPHATASE 66 IU/L (46-116); ANION GAP 17 (8-16); ASPARTATE AMINO TRANSFERASE 18 U/L (10-37); BILIRUBIN,TOTAL 1.1 MG/DL (0.1-1.0); BLOOD UREA NITROGEN 73 MG/DL (7-18); BUN/CREATININE RATIO 7.1 (6.6-38.0); CALCIUM 8.8 MG/DL (8.5-10.1); CHLORIDE 102 MMOL/L (99-107); CREATININE 10.32 MG/DL (0.40-0.90); GLUCOSE 91 MG/DL (70-104); POTASSIUM 4.5 MMOL/L (3.5-5.1); SODIUM 139 MMOL/L (135-145); TOTAL CARBON DIOXIDE 20.1 MMOL/L (24-32); TOTAL PROTEIN 7.1 G/DL (6.4-8.2); eGFR 5 ML/MIN
[2019-09-19] MEDS ORDERED: ondansetron/PF 4mg/2ml inj IV ONE (20:15)
[2019-09-19] MEDS ORDERED: morphine 4 MG/ML inj SYRINge IV ONE (20:55)
[2019-09-19] MEDS ORDERED: hydrALAZINE 20mg/ml inj. IV ONE (20:55)
[2019-09-19 22:40] LABS: CLARITY,URINE CLEAR (Clear); COLOR,URINE YELLOW (Yellow); GLUCOSE, URINE NEGATIVE (Neg); KETONES,URINE NEGATIVE (Neg); LEUKOCYTE ESTERASE ,URINE TRACE (Neg); NITRITES, URINE NEGATIVE (Neg); OCCULT BLOOD,URINE LARGE (Neg); PROTEIN,URINE 100 mg/dl (Neg); UROBILINOGEN,URINE 0.2 E.U/dL (0.2-1.0)
[2019-09-19 22:44] LABS: UA COLLECTION TYPE URINAL
[2019-09-19 22:46] LABS: BACTERIA,URINE 1+ /HPF (Neg); RBC,URINE 0-2 /HPF (0-2); SQUAMOUS EPITHELIAL CELL,UR FEW /LPF (FEW); WBC,URINE 0-4 /HPF (0-4)
[2019-09-19 22:50] VITALS: BP 185/92
== END 2019-09-19 22:51 | disposition home or self-care (01) ==
LOC: ER 19:15
DX: M54.5 Low back pain (principal); N17.9 Acute kidney failure, unspecified; I25.10 Atherosclerotic heart disease of native coronary artery without angina pectoris; I13.2 Hypertensive heart and chronic kidney disease with heart failure and with stage 5 chronic kidney disease, or end stage renal disease; N18.6 End stage renal disease; I50.9 Heart failure, unspecified; F12.90 Cannabis use, unspecified, uncomplicated; R06.02 Shortness of breath; F15.90 Other stimulant use, unspecified, uncomplicated; Z98.61 Coronary angioplasty status; Z99.2 Dependence on renal dialysis; Z95.1 Presence of aortocoronary bypass graft; Z98.890 Other specified postprocedural states; Z88.8 Allergy status to other drugs, medicaments and biological substances; Z79.899 Other long term (current) drug therapy
CPT/HCPCS: 36415; 71045; 80053; 81001; 84484; 85025; 87088; 93005; 96374; 96375; 99285; J0360; J2270; J2405

== ENCOUNTER 2019-11-28 05:18 | Emergency (ER) | payer MEDICAID ==
[~2019-11-28] VITALS: Ht 172.7 cm; Wt 63.2 kg
--- NOTE | 2019-11-28 05:25 | NUR ---
Notified MD Geiger of pt's elevated BP, shoulder pain, and clotted AV fistula.
--- NOTE | 2019-11-28 05:35 | NUR ---
Pt last dialyzed a week ago.
[2019-11-28] MEDS ORDERED: ibuprofen 200mg tablet PO ONE (06:35)
[2019-11-28] MEDS ORDERED: morphine 4 MG/ML inj SYRINge IM ONE (06:35)
[2019-11-28] MEDS ORDERED: metolazone 2.5mg tablet PO SCH (07:00)
[2019-11-28] MEDS ORDERED: hyDRALAzine 10mg tablet PO SCH (07:00)
[2019-11-28] MEDS ORDERED: labetalol 100mg tablet PO SCH (07:00)
[2019-11-28] MEDS ORDERED: furosemide 20MG tablet PO ONE (07:00)
[2019-11-28 07:05] VITALS: BP_DIAS 122
[2019-11-28 07:17] VITALS: BP_SYST 245
--- NOTE | 2019-11-28 07:20 | NUR ---
Lara [phone] (Daughter) ask for jemal loya
--- NOTE | 2019-11-28 07:24 | NUR ---
CATRACHITA [phone]
[2019-11-28] MEDS ORDERED: HYDR-4070 PO (20:50)
== END 2019-11-28 07:56 | disposition home or self-care (01) ==
LOC: ER 05:18
DX: T82.868A Thrombosis due to vascular prosthetic devices, implants and grafts, initial encounter (principal); G89.29 Other chronic pain; M25.512 Pain in left shoulder; I25.10 Atherosclerotic heart disease of native coronary artery without angina pectoris; I13.2 Hypertensive heart and chronic kidney disease with heart failure and with stage 5 chronic kidney disease, or end stage renal disease; N18.6 End stage renal disease; I50.9 Heart failure, unspecified; F17.200 Nicotine dependence, unspecified, uncomplicated; F12.90 Cannabis use, unspecified, uncomplicated; F15.90 Other stimulant use, unspecified, uncomplicated; Z99.2 Dependence on renal dialysis; Z95.1 Presence of aortocoronary bypass graft; Z95.5 Presence of coronary angioplasty implant and graft; Z79.899 Other long term (current) drug therapy; Y83.8 Other surgical procedures as the cause of abnormal reaction of the patient, or of later complication, without mention of misadventure at the time of the procedure; Y92.89 Other specified places as the place of occurrence of the external cause
CPT/HCPCS: 93005; 96372; 99284; J2270

== ENCOUNTER 2019-11-28 16:35 | Inpatient (IN) | payer MEDICAID ==
[~2019-11-28] VITALS: Ht 172.7 cm; Wt 66.4 kg
[2019-11-28 18:55] LABS: BASOPHILS # (AUTO) 0.1 X10'3 (0-0.2); EOSINOPHILS # (AUTO) 0.2 X10'3 (0-0.9); HEMOGLOBIN 10.9 g/dl (12.0-16.0); LYMPHOCYTES # (AUTO) 0.8 X10'3 (1.1-4.8); MONOCYTES # (AUTO) 0.3 X10'3 (0-0.9); NEUTROPHILS # (AUTO) 2.9 X10'3 (1.8-7.7)
[2019-11-28 18:57] LABS: BASOPHILS % (AUTO) 1.3 % (0-1); EOSINOPHILS % (AUTO) 5.1 % (0-6); HEMATOCRIT 32.8 % (35.0-45.0); LYMPHOCYTES % (AUTO) 19.5 % (21-51); MEAN CORPUSCULAR HEMOGLOBIN 34.3 PG (27.0-31.0); MEAN CORPUSCULAR HGB CONC 33.3 g/dL (33.0-36.5); MEAN CORPUSCULAR VOLUME 103.1 FL (78-98); MEAN PLATELET VOLUME 8.9 FL (7.4-10.4); MONOCYTES % (AUTO) 6.5 % (2-12); NEUTROPHILS % (AUTO) 67.6 % (42-75); PLATELET COUNT 228 X10'3 (140-440); RED BLOOD COUNT 3.18 X10'6 (4.20-5.60); RED CELL DISTRIBUTION WIDTH 14.7 % (11.5-14.5); WHITE BLOOD COUNT 4.3 X10'3 (4.5-11.0)
[2019-11-28 19:08] LABS: ALANINE AMINOTRANSFERASE 14 U/L (12-78); ALBUMIN 3.8 G/DL (3.4-5.0); ALKALINE PHOSPHATASE 62 IU/L (46-116); ANION GAP 16 (8-16); ASPARTATE AMINO TRANSFERASE 19 U/L (10-37); BILIRUBIN,TOTAL 0.6 MG/DL (0.1-1.0); BLOOD UREA NITROGEN 98 MG/DL (7-18); BUN/CREATININE RATIO 8.5 (6.6-38.0); CALCIUM 9.1 MG/DL (8.5-10.1); CHLORIDE 102 MMOL/L (99-107); CREATININE 11.52 MG/DL (0.40-0.90); GLUCOSE 81 MG/DL (70-104); SODIUM 140 MMOL/L (135-145); TOTAL PROTEIN 7.5 G/DL (6.4-8.2); eGFR 4 ML/MIN
[2019-11-28] MEDS ORDERED: ondansetron/PF 4mg/2ml inj IV PRN (19:45)
[2019-11-28] MEDS ORDERED: acetaminophen 325mg tablet PO PRN (19:45)
[2019-11-28] MEDS ORDERED: magnesium hydroxide 30ml (MOM) UD suspension PO PRN (19:45)
[2019-11-28] MEDS ORDERED: mag hydrox/Alum hydrox/simeth 30ml oral suspension PO PRN (19:45)
--- NOTE | 2019-11-28 19:50 | NUR ---
Sabrina [phone]
--- NOTE | 2019-11-28 20:34 | NUR ---
Received report from ER nurse Giovanna ABURTO. Will assume patient care.
[2019-11-28] MEDS ORDERED: HYDR-4070 PO (20:50)
[2019-11-28 20:58] VITALS: BP 215/96
[2019-11-28] MEDS: furosemide 40mg tablet PO SCH (22:42)
[2019-11-28] MEDS: hydrALAZINE 25 MG tablet PO SCH (22:42)
[2019-11-28] MEDS: labetalol 100mg tablet PO SCH (22:42)
--- NOTE | 2019-11-28 22:43 | NUR ---
Patient arrived to floor aroundn 2130. BP 215/96 hr-76. Patient states she usually runs high. Laci Chavez notified of the BP and address home medications. to give Lasix, hydralazine and Labetalol Now. Will continue with current POC.
[2019-11-29] VITALS: BP 211/92
[2019-11-29 03:20] VITALS: BP 188/103
[2019-11-29 05:59] LABS: BASOPHILS % (AUTO) 0 % (0-1); HEMOGLOBIN 8.8 g/dl (12.0-16.0)
[2019-11-29 06:00] VITALS: BP 197/87
[2019-11-29 06:01] LABS: EOSINOPHILS # (AUTO) 0.3 X10'3 (0-0.9); EOSINOPHILS % (AUTO) 7.6 % (0-6); HEMATOCRIT 26.1 % (35.0-45.0); LYMPHOCYTES # (AUTO) 0.9 X10'3 (1.1-4.8); LYMPHOCYTES % (AUTO) 22.7 % (21-51); MEAN CORPUSCULAR HEMOGLOBIN 34.2 PG (27.0-31.0); MEAN CORPUSCULAR HGB CONC 33.6 g/dL (33.0-36.5); MEAN PLATELET VOLUME 8.8 FL (7.4-10.4); MONOCYTES # (AUTO) 0.3 X10'3 (0-0.9); MONOCYTES % (AUTO) 8.4 % (2-12); NEUTROPHILS # (AUTO) 2.5 X10'3 (1.8-7.7); NEUTROPHILS % (AUTO) 61.3 % (42-75); PLATELET COUNT 199 X10'3 (140-440); RED BLOOD COUNT 2.56 X10'6 (4.20-5.60); RED CELL DISTRIBUTION WIDTH 14.6 % (11.5-14.5)
[2019-11-29 06:06] LABS: PARTIAL THROMBOPLASTIN TIME 31 SECONDS (22-32)
--- NOTE | 2019-11-29 06:15 | NUR ---
Patient in room REEMA 350. I have received report from Tamiko ABURTO and had the opportunity to ask questions and assume patient care.
[2019-11-29 06:16] LABS: ALANINE AMINOTRANSFERASE 12 U/L (12-78); ALBUMIN 2.9 G/DL (3.4-5.0); ALBUMIN/GLOBULIN RATIO 0.9 (1.1-1.5); ALKALINE PHOSPHATASE 53 IU/L (46-116); ANION GAP 16 (8-16); ASPARTATE AMINO TRANSFERASE 13 U/L (10-37); BILIRUBIN,TOTAL 0.5 MG/DL (0.1-1.0); BLOOD UREA NITROGEN 102 MG/DL (7-18); BUN/CREATININE RATIO 9.1 (6.6-38.0); CALCIUM 8.2 MG/DL (8.5-10.1); CHLORIDE 104 MMOL/L (99-107); CREATININE 11.15 MG/DL (0.40-0.90); GLUCOSE 86 MG/DL (70-104); MAGNESIUM 2.4 MG/DL (1.5-2.4); PHOSPHORUS 8.7 MG/DL (2.3-4.5); POTASSIUM 4.2 MMOL/L (3.5-5.1); SODIUM 139 MMOL/L (135-145); TOTAL CARBON DIOXIDE 19.4 MMOL/L (24-32); eGFR 4 ML/MIN
--- NOTE | 2019-11-29 06:47 | NUR ---
Patient in room REEMA 350. I have received report from Ally ABURTO and had the opportunity to ask questions and assume patient care.
[2019-11-29 06:48] LABS: TOTAL CELLS COUNTED 100
[2019-11-29 06:53] LABS: PLATELET ESTIMATE NORMAL
[2019-11-29 06:55] LABS: SCHISTOCYTES FEW
[2019-11-29 06:56] LABS: POIKILOCYTOSIS FEW
[2019-11-29] MEDS: folic acid/vitamin B complex w/vitamin C 0.8mg tablet PO SCH (08:00)
[2019-11-29] MEDS: calcium acetate 667mg (PhosLO) capsule PO SCH ×3 (08:00→18:55)
[2019-11-29] MEDS ORDERED: heparin 1,000unit/ml 10ml vial 10 ML IV ONE (08:04)
[2019-11-29] MEDS ORDERED: albumin (human) 25% 100ml IV 100 ML IV PRN (08:05)
[2019-11-29] MEDS ORDERED: heparin 1,000 units/ml 10ml inj IV ONE (08:05)
[2019-11-29] MEDS ORDERED: epoetin 20,000 units/ml inj IV ONE (08:05)
[2019-11-29] MEDS ORDERED: heparin 1,000 units/ml 10ml inj HE ONE ×2 (08:10)
[2019-11-29] MEDS: furosemide 40mg tablet PO SCH ×2 (08:59→20:00)
[2019-11-29] MEDS: diltiazem CD 120mg capsule (once-daily) PO SCH (08:59)
[2019-11-29] MEDS: labetalol 100mg tablet PO SCH ×2 (09:00→19:59)
[2019-11-29] MEDS: metolazone 2.5mg tablet PO SCH (09:00)
[2019-11-29] MEDS: hydrALAZINE 25 MG tablet PO SCH ×3 (09:00→21:36)
[2019-11-29] MEDS ORDERED: LIDOcaine 1%/PF 5ML 10 MG/ML VIAL ONE (09:07)
[2019-11-29] MEDS ORDERED: heparin 1,000unit/ml 10ml vial 10 ML ONE (09:07)
[2019-11-29] MEDS ORDERED: fentaNYL/PF 50MCG/1 ML 2ML syringe ONE (09:08)
[2019-11-29] MEDS ORDERED: midazolam 2 mg/2 ml injection ONE (09:08)
--- NOTE | 2019-11-29 09:18 | NUR ---
Dr. Diaz ordered [place] 10/ prn per pt c/o pain. No PIVs per Dr. Diaz.
[2019-11-29] MEDS ORDERED: iohexol 300 MG/1 ML 50ml polymer ONE (09:54)
[2019-11-29 11:34] VITALS: BP 185/87
[2019-11-29] MEDS: HYDROcodone/acetaminophen 10/325mg tab PO PRN ×2 (12:45→19:59)
--- NOTE | 2019-11-29 18:25 | NUR ---
Patient in room REEMA 350. I have received report from CRISELDA Andersen and had the opportunity to ask questions and assume patient care. Addendum: 11/29/19 at 1825 by Courtney De La Rosa RN Amended: Links added.
--- NOTE | 2019-11-29 18:42 | NUR ---
Student documentation: I have reviewed and all interventions, assessments performed and documented by Destini Student Nurse . Student Medication Administration: For this medication-pass time frame, all medication were reviewed, dispensed, administered and documented per hospital policy by Destini Student Nurse.
[2019-11-29 19:23] VITALS: BP 196/105
[2019-11-30] VITALS: BP 150/62
[2019-11-30] MEDS: HYDROcodone/acetaminophen 10/325mg tab PO PRN ×2 (05:04→13:10)
[2019-11-30 06:16] LABS: ALANINE AMINOTRANSFERASE 12 U/L (12-78); ALBUMIN 2.9 G/DL (3.4-5.0); ALBUMIN/GLOBULIN RATIO 0.9 (1.1-1.5); ALKALINE PHOSPHATASE 53 IU/L (46-116); ANION GAP 11 (8-16); ASPARTATE AMINO TRANSFERASE 9 U/L (10-37); BILIRUBIN,TOTAL 0.5 MG/DL (0.1-1.0); BLOOD UREA NITROGEN 47 MG/DL (7-18); BUN/CREATININE RATIO 7.3 (6.6-38.0); CALCIUM 8.2 MG/DL (8.5-10.1); CHLORIDE 101 MMOL/L (99-107); CREATININE 6.41 MG/DL (0.40-0.90); GLUCOSE 96 MG/DL (70-104); MAGNESIUM 2.1 MG/DL (1.5-2.4); PHOSPHORUS 5.9 MG/DL (2.3-4.5); POTASSIUM 3.4 MMOL/L (3.5-5.1); SODIUM 138 MMOL/L (135-145); TOTAL CARBON DIOXIDE 25.7 MMOL/L (24-32); TOTAL PROTEIN 6.1 G/DL (6.4-8.2); eGFR 8 ML/MIN
[2019-11-30 06:22] LABS: BASOPHILS # (AUTO) 0.1 X10'3 (0-0.2); BASOPHILS % (AUTO) 1.3 % (0-1); EOSINOPHILS # (AUTO) 0.2 X10'3 (0-0.9); EOSINOPHILS % (AUTO) 3.9 % (0-6); HEMATOCRIT 27.9 % (35.0-45.0); HEMOGLOBIN 9.5 g/dl (12.0-16.0); LYMPHOCYTES # (AUTO) 0.6 X10'3 (1.1-4.8); LYMPHOCYTES % (AUTO) 14.6 % (21-51); MEAN CORPUSCULAR HEMOGLOBIN 34.2 PG (27.0-31.0); MEAN CORPUSCULAR VOLUME 100.6 FL (78-98); MONOCYTES # (AUTO) 0.4 X10'3 (0-0.9); MONOCYTES % (AUTO) 10.4 % (2-12); NEUTROPHILS # (AUTO) 2.8 X10'3 (1.8-7.7); NEUTROPHILS % (AUTO) 69.8 % (42-75); PLATELET COUNT 205 X10'3 (140-440); RED BLOOD COUNT 2.77 X10'6 (4.20-5.60); RED CELL DISTRIBUTION WIDTH 14.8 % (11.5-14.5)
--- NOTE | 2019-11-30 06:24 | NUR ---
Problems reprioritized. Patient report given, questions answered & plan of care reviewed with CRISELDA Huang.
[2019-11-30 07:00] VITALS: BP 199/80
[2019-11-30] MEDS: metolazone 2.5mg tablet PO SCH (08:56)
[2019-11-30] MEDS: calcium acetate 667mg (PhosLO) capsule PO SCH ×2 (08:56→13:13)
[2019-11-30] MEDS: folic acid/vitamin B complex w/vitamin C 0.8mg tablet PO SCH (08:57)
[2019-11-30] MEDS: furosemide 40mg tablet PO SCH (08:57)
[2019-11-30] MEDS: hydrALAZINE 25 MG tablet PO SCH ×2 (08:58→13:13)
[2019-11-30] MEDS: diltiazem CD 120mg capsule (once-daily) PO SCH (08:58)
[2019-11-30] MEDS: labetalol 100mg tablet PO SCH (09:01)
[2019-11-30 11:00] VITALS: BP 120/60
[2019-11-30 13:13] VITALS: BP_SYST 147
--- NOTE | 2019-11-30 16:55 | NUR ---
PATIENT STABLE AND APPROPRIATE FOR DISCHARGE, EDUCATION GIVEN, ALL BELONGINGS SENT WITH PATIENT, PATIENT TAKEN TO LOBBY BY WHEEL CHAIR TO AND AWAITING CAR WHERE FAMILY MEMBER WILL TAKE THE PATIENT HOME
== END 2019-11-30 16:55 | disposition home or self-care (01) | DRG 182 ==
LOC: ER 16:36 → ED HOLD 19:42 → SUR 3N 20:40
PROVIDERS: ADMIT Internal Medicine Critical Care Medicine; ATTEND Internal Medicine Critical Care Medicine
PROC: 057Y3ZZ Dilation of Upper Vein, Percutaneous Approach (ICD-10-PCS; principal; 2019-11-29)
PROC: 0JH63XZ Insertion of Tunneled Vascular Access Device into Chest Subcutaneous Tissue and Fascia, Percutaneous Approach (ICD-10-PCS; 2019-11-29)
PROC: 02H633Z Insertion of Infusion Device into Right Atrium, Percutaneous Approach (ICD-10-PCS; 2019-11-29)
PROC: B548ZZA Ultrasonography of Superior Vena Cava, Guidance (ICD-10-PCS; 2019-11-29)
DX: T82.868A Thrombosis due to vascular prosthetic devices, implants and grafts, initial encounter (principal); I13.2 Hypertensive heart and chronic kidney disease with heart failure and with stage 5 chronic kidney disease, or end stage renal disease; F12.90 Cannabis use, unspecified, uncomplicated; F17.210 Nicotine dependence, cigarettes, uncomplicated; Y83.8 Other surgical procedures as the cause of abnormal reaction of the patient, or of later complication, without mention of misadventure at the time of the procedure; I25.10 Atherosclerotic heart disease of native coronary artery without angina pectoris; I50.9 Heart failure, unspecified; N18.6 End stage renal disease; Z99.2 Dependence on renal dialysis; Z88.8 Allergy status to other drugs, medicaments and biological substances; Z95.1 Presence of aortocoronary bypass graft; Y92.89 Other specified places as the place of occurrence of the external cause
CPT/HCPCS: 36415; 36558; 37248; 71045; 76937; 80053; 83735; 84100; 85007; 85025; 85610; 85730; 87081; 99285; A9270; C1725; C1750; C1769; C1894; G0378; J1644; J2150; J2250; J3010; Q4081; Q9967

== ENCOUNTER 2019-12-09 06:30 | Day surgery (SDC) | payer MEDICAID ==
[~2019-12-09] VITALS: Ht 172.7 cm; Wt 63.0 kg
[2019-12-09] VITALS (8 sets, daily range): BP systolic 142–210; BP diastolic 70–104
[~2019-12-09 06:30] MED LIST changes: -OSEL30CA PO
[2019-12-09] MEDS ORDERED: normal saline 1000ml 1,000 ML IV PRN (06:50)
[2019-12-09] MEDS ORDERED: FURO40TA4 PO (07:10)
[2019-12-09] MEDS ORDERED: iohexol 300mg/ml 100ml inj. ONE ×2 (08:37→10:51)
[2019-12-09] MEDS ORDERED: LIDOcaine 1%/PF 5ML 10 MG/ML VIAL ONE (08:37)
[2019-12-09] MEDS ORDERED: midazolam 2 mg/2 ml injection ONE ×2 (08:37→10:03)
[2019-12-09] MEDS ORDERED: heparin 1,000 UNITS/NS 500ml 500 ML ONE ×2 (08:37→10:51)
[2019-12-09] MEDS ORDERED: fentaNYL/PF 50MCG/1 ML 2ML syringe ONE ×2 (08:37→10:03)
[2019-12-09 08:42] LABS: BASOPHILS # (AUTO) 0.1 X10'3 (0-0.2); BASOPHILS % (AUTO) 1.5 % (0-1); EOSINOPHILS # (AUTO) 0.2 X10'3 (0-0.9); HEMATOCRIT 31.7 % (35.0-45.0); HEMOGLOBIN 10.6 g/dl (12.0-16.0); LYMPHOCYTES # (AUTO) 0.8 X10'3 (1.1-4.8); LYMPHOCYTES % (AUTO) 20.7 % (21-51); MEAN CORPUSCULAR HEMOGLOBIN 33.7 PG (27.0-31.0); MEAN CORPUSCULAR HGB CONC 33.4 g/dL (33.0-36.5); MEAN CORPUSCULAR VOLUME 100.9 FL (78-98); MEAN PLATELET VOLUME 8.4 FL (7.4-10.4); MONOCYTES # (AUTO) 0.4 X10'3 (0-0.9); MONOCYTES % (AUTO) 10.9 % (2-12); NEUTROPHILS # (AUTO) 2.4 X10'3 (1.8-7.7); NEUTROPHILS % (AUTO) 61.9 % (42-75); PLATELET COUNT 194 X10'3 (140-440); RED BLOOD COUNT 3.14 X10'6 (4.20-5.60); RED CELL DISTRIBUTION WIDTH 14.7 % (11.5-14.5); WHITE BLOOD COUNT 3.8 X10'3 (4.5-11.0)
[2019-12-09 09:38] LABS: ALBUMIN 3.3 G/DL (3.4-5.0); ANION GAP 10 (8-16); BLOOD UREA NITROGEN 46 MG/DL (7-18); BUN/CREATININE RATIO 6.6 (6.6-38.0); CALCIUM 8.2 MG/DL (8.5-10.1); CHLORIDE 100 MMOL/L (99-107); CREATININE 6.95 MG/DL (0.40-0.90); GLUCOSE 90 MG/DL (70-104); POTASSIUM 3.6 MMOL/L (3.5-5.1); SODIUM 138 MMOL/L (135-145); TOTAL CARBON DIOXIDE 27.9 MMOL/L (24-32); eGFR 7 ML/MIN
[2019-12-09] MEDS ORDERED: tPA-cathflo 2 MG/2 ml IV flush ONE (09:54)
[2019-12-09] MEDS ORDERED: hydrALAZINE 20mg/ml inj. IV ONE ×2 (10:02→11:30)
== END 2019-12-09 13:30 | disposition home or self-care (01) ==
LOC: SSTAY O 06:30
PROVIDERS: ATTEND Radiology Diagnostic Radiology
DX: T82.868A Thrombosis due to vascular prosthetic devices, implants and grafts, initial encounter (principal); I25.10 Atherosclerotic heart disease of native coronary artery without angina pectoris; I13.0 Hypertensive heart and chronic kidney disease with heart failure and stage 1 through stage 4 chronic kidney disease, or unspecified chronic kidney disease; I50.9 Heart failure, unspecified; N18.9 Chronic kidney disease, unspecified; Z87.01 Personal history of pneumonia (recurrent); Z98.890 Other specified postprocedural states; Z95.1 Presence of aortocoronary bypass graft; F17.210 Nicotine dependence, cigarettes, uncomplicated; F15.90 Other stimulant use, unspecified, uncomplicated; Z88.8 Allergy status to other drugs, medicaments and biological substances; Z79.899 Other long term (current) drug therapy; Z82.49 Family history of ischemic heart disease and other diseases of the circulatory system; Y83.2 Surgical operation with anastomosis, bypass or graft as the cause of abnormal reaction of the patient, or of later complication, without mention of misadventure at the time of the procedure; Y92.89 Other specified places as the place of occurrence of the external cause
CPT/HCPCS: 36415; 36905; 80048; 85025; 99152; 99153; C1725; C1769; C1894; J0360; J1644; J2250; J2997; J3010; Q9967

== ENCOUNTER 2019-12-09 23:59 | Emergency (ER) | payer MEDICAID ==
[~2019-12-09] VITALS: Ht 172.7 cm; Wt 63.6 kg
[2019-12-10 00:54] VITALS: BP 174/83
== END 2019-12-10 00:56 | disposition home or self-care (01) ==
LOC: ER 23:59
DX: T82.838A Hemorrhage due to vascular prosthetic devices, implants and grafts, initial encounter (principal); I25.10 Atherosclerotic heart disease of native coronary artery without angina pectoris; I13.0 Hypertensive heart and chronic kidney disease with heart failure and stage 1 through stage 4 chronic kidney disease, or unspecified chronic kidney disease; N18.9 Chronic kidney disease, unspecified; F12.90 Cannabis use, unspecified, uncomplicated; F15.90 Other stimulant use, unspecified, uncomplicated; Z87.01 Personal history of pneumonia (recurrent); Z98.890 Other specified postprocedural states; Z88.8 Allergy status to other drugs, medicaments and biological substances; Z79.899 Other long term (current) drug therapy; Y84.8 Other medical procedures as the cause of abnormal reaction of the patient, or of later complication, without mention of misadventure at the time of the procedure; Y92.89 Other specified places as the place of occurrence of the external cause
CPT/HCPCS: 12002; 99281; 99282

== ENCOUNTER 2019-12-13 20:08 | Emergency (ER) | payer MEDICAID ==
[~2019-12-13] VITALS: Ht 172.7 cm; Wt 63.0 kg
[2019-12-13] MEDS ORDERED: SUMAtriptan succ. 6 MG/0.5ml vial SQ ONE (22:10)
[2019-12-13] MEDS ORDERED: acetaminophen 325mg tablet PO ONE (22:10)
[2019-12-13] MEDS ORDERED: proCHLORperazine 10 MG/2 ml inj IM ONE (22:10)
[2019-12-13] MEDS ORDERED: hyDRALAzine 10mg tablet PO ONE (23:25)
[2019-12-13 23:32] VITALS: BP 189/95
== END 2019-12-13 23:29 | disposition home or self-care (01) ==
LOC: ER 20:09
DX: R51 Headache (principal); M54.2 Cervicalgia; I25.10 Atherosclerotic heart disease of native coronary artery without angina pectoris; I13.0 Hypertensive heart and chronic kidney disease with heart failure and stage 1 through stage 4 chronic kidney disease, or unspecified chronic kidney disease; N18.9 Chronic kidney disease, unspecified; F12.90 Cannabis use, unspecified, uncomplicated; F15.90 Other stimulant use, unspecified, uncomplicated; Z87.01 Personal history of pneumonia (recurrent); Z98.890 Other specified postprocedural states; Z88.8 Allergy status to other drugs, medicaments and biological substances; Z79.899 Other long term (current) drug therapy
CPT/HCPCS: 96372; 99284; J0780; J3030

== ENCOUNTER 2020-04-06 02:21 | Inpatient (IN) | payer MEDICAID ==
[~2020-04-06] VITALS: Ht 172.7 cm; Wt 59.2 kg
[2020-04-06 03:43] LABS: BASOPHILS % (AUTO) 0.6 % (0-1); EOSINOPHILS % (AUTO) 0.2 % (0-6); HEMOGLOBIN 9.9 g/dl (12.0-16.0); LYMPHOCYTES # (AUTO) 0.4 X10'3 (1.1-4.8); LYMPHOCYTES % (AUTO) 9.2 % (21-51); MEAN CORPUSCULAR HEMOGLOBIN 33.7 PG (27.0-31.0); MEAN CORPUSCULAR VOLUME 99.3 FL (78-98); MEAN PLATELET VOLUME 9.1 FL (7.4-10.4); MONOCYTES # (AUTO) 0.3 X10'3 (0-0.9); MONOCYTES % (AUTO) 6.8 % (2-12); NEUTROPHILS # (AUTO) 3.5 X10'3 (1.8-7.7); NEUTROPHILS % (AUTO) 83.2 % (42-75); PLATELET COUNT 158 X10'3 (140-440); RED BLOOD COUNT 2.92 X10'6 (4.20-5.60); RED CELL DISTRIBUTION WIDTH 14.9 % (11.5-14.5); WHITE BLOOD COUNT 4.2 X10'3 (4.5-11.0)
--- NOTE | 2020-04-06 03:45 | NUR ---
Patient is alert and oriented, no arm drifts, face symmetric, movements well coordinated. There is a mild weakness to left arm . Patient has an av shunt on left arm and just had dialysis. patient has a normal gait. MD notified for possible stroke alert.
[2020-04-06 03:54] LABS: ALANINE AMINOTRANSFERASE 14 U/L (12-78); ALBUMIN 3.4 G/DL (3.4-5.0); ALBUMIN/GLOBULIN RATIO 0.8 (1.1-1.5); ALKALINE PHOSPHATASE 68 IU/L (46-116); ANION GAP 9 (8-16); ASPARTATE AMINO TRANSFERASE 24 U/L (10-37); BILIRUBIN,TOTAL 0.9 MG/DL (0.1-1.0); BLOOD UREA NITROGEN 34 MG/DL (7-18); BUN/CREATININE RATIO 5.2 (6.6-38.0); CALCIUM 8.7 MG/DL (8.5-10.1); CHLORIDE 98 MMOL/L (99-107); CREATININE 6.53 MG/DL (0.40-0.90); GLUCOSE 104 MG/DL (70-104); SODIUM 139 MMOL/L (135-145); TOTAL CARBON DIOXIDE 32.3 MMOL/L (24-32); TOTAL PROTEIN 7.6 G/DL (6.4-8.2); eGFR 8 ML/MIN
[2020-04-06] MEDS ORDERED: hydrALAZINE 20mg/ml inj. IV ONE ×3 (03:55→04:45)
[2020-04-06 04:02] LABS: MAGNESIUM 2.1 MG/DL (1.5-2.4); TROPONIN I 0.09 NG/ML (0.0-0.05)
[2020-04-06] MEDS ORDERED: azithromycin/NS 500mg/250ml 250 ML IV ONE (04:30)
[2020-04-06] MEDS ORDERED: CefTRIAXone/D5W-Rocephin 1gm 50 ML IV ONE (04:30)
[2020-04-06] MEDS ORDERED: AZIT-63 PO (04:38)
--- NOTE | 2020-04-06 05:23 | NUR ---
patient received 20 mg Hydalazine ivp bp dropped tp 196/84, hr 86. Continue to monitor patient.
--- NOTE | 2020-04-06 05:24 | NUR ---
Covid swab send out.
[2020-04-06] MEDS ORDERED: acetaminophen 325mg tablet PO ONE (05:50)
[2020-04-06] MEDS ORDERED: amLODIPine 5mg tablet PO ONE (05:50)
[2020-04-06] MEDS ORDERED: vancomycin/NS 1 GM ADD-VANTAGE 250 ML X 1 DOSE IV ONE (06:14)
[2020-04-06] MEDS ORDERED: FURO80TA3 PO (06:46)
[2020-04-06] MEDS ORDERED: CARCD120C PO (06:46)
[2020-04-06 07:03] LABS: CLARITY,URINE CLEAR (Clear); COLOR,URINE STRAW (Yellow); GLUCOSE, URINE NEGATIVE (Neg); KETONES,URINE NEGATIVE (Neg); LEUKOCYTE ESTERASE ,URINE NEGATIVE (Neg); NITRITES, URINE NEGATIVE (Neg); OCCULT BLOOD,URINE TRACE-INTACT (Neg); PH,URINE >=9.0 (4.8-8.0); PROTEIN,URINE 100 mg/dl (Neg); UROBILINOGEN,URINE 0.2 E.U/dL (0.2-1.0)
[2020-04-06 07:06] LABS: UA COLLECTION TYPE CLN CATCH MIDSTREAM
[2020-04-06 07:08] LABS: WBC,URINE NONE SEEN /HPF (0-4)
[2020-04-06 07:09] LABS: BACTERIA,URINE FEW /HPF (Neg); MUCUS STRANDS NONE SEEN /LPF (Neg); SQUAMOUS EPITHELIAL CELL,UR FEW /LPF (FEW)
[2020-04-06] MEDS ORDERED: albuterol 2.5 MG/3 ML nebule NEB PRN (07:10)
[2020-04-06] MEDS ORDERED: ondansetron/PF 4mg/2ml inj IV PRN (07:10)
[2020-04-06] MEDS ORDERED: acetaminophen 325mg tablet PO PRN ×2 (07:10)
[2020-04-06] MEDS: pantoprazole 40mg Tablet.DR PO SCH (07:30)
[2020-04-06] MEDS ORDERED: ALBUTEROL INHALER 1 PUFF/90 MCG INHALER IH PRN (07:40)
[2020-04-06] MEDS: calcium acetate 667mg (PhosLO) capsule PO SCH ×3 (08:00→17:52)
[2020-04-06] MEDS: metolazone 2.5mg tablet PO SCH (08:00)
[2020-04-06] MEDS: docusate sod 100mg capsule PO SCH ×3 (08:00→20:23)
[2020-04-06] MEDS ORDERED: VANCOMYCIN 1,500MG inj. 1,500 MG in normal saline 500ml IV soln 500 ML IV SCH (08:00)
--- NOTE | 2020-04-06 08:10 | NUR ---
attempted to call report. Rn unavailable will call back.
--- NOTE | 2020-04-06 08:13 | NUR ---
called dialysis nurse direct response consultant, stated ok to give nghia meds.
[2020-04-06] MEDS: labetalol 100mg tablet PO SCH ×2 (08:23→20:24)
[2020-04-06] MEDS: hydrALAZINE 25 MG tablet PO SCH ×3 (08:23→20:28)
[2020-04-06] MEDS: enoxaparin 60mg/0.6ml syringe SUBCUT SCH (08:24)
[2020-04-06] MEDS: furosemide 10 MG/1 ML 10ml inj IV SCH ×2 (08:24→20:23)
[2020-04-06] MEDS: dexamethasone 4mg/ml inj IV SCH (08:25)
[2020-04-06 08:30] LABS: PLATELET COUNT 161 X10'3 (140-440)
[2020-04-06] MEDS ORDERED: ipratropium/albuterol 3ml nebule NEB SCH (09:00)
[2020-04-06 09:07] LABS: D-DIMER 1.28 MG/L FEU (0-0.50); PARTIAL THROMBOPLASTIN TIME 27 SECONDS (22-32)
[2020-04-06 10:16] VITALS: BP 128/63
[2020-04-06 14:00] VITALS: BP 116/75
[2020-04-06 18:00] VITALS: BP 153/75
--- NOTE | 2020-04-06 18:17 | NUR ---
Problems reprioritized. Patient report given, questions answered & plan of care reviewed with Marysol ABURTO.
[2020-04-06] MEDS: diltiazem CD 120mg capsule (once-daily) PO SCH (20:28)
[2020-04-06 22:00] VITALS: BP 121/63
[2020-04-07 02:00] VITALS: BP 177/76
[2020-04-07 06:00] VITALS: BP 178/75
--- NOTE | 2020-04-07 06:42 | NUR ---
Problems reprioritized. Patient report given, questions answered & plan of care reviewed with Sonia ABURTO.
--- NOTE | 2020-04-07 06:53 | NUR ---
Patient in room ORTHO 4012. I have received report from CRISELDA Gregg and had the opportunity to ask questions and assume patient care.
[2020-04-07] MEDS: dexamethasone 4mg/ml inj IV SCH (07:27)
[2020-04-07] MEDS: pantoprazole 40mg Tablet.DR PO SCH (07:28)
[2020-04-07] MEDS: hydrALAZINE 25 MG tablet PO SCH ×3 (07:28→20:06)
[2020-04-07] MEDS: enoxaparin 60mg/0.6ml syringe SUBCUT SCH (07:28)
[2020-04-07] MEDS: docusate sod 100mg capsule PO SCH ×2 (07:29→08:02)
[2020-04-07] MEDS: labetalol 100mg tablet PO SCH ×2 (07:30→20:02)
[2020-04-07] MEDS: calcium acetate 667mg (PhosLO) capsule PO SCH ×3 (07:30→17:52)
[2020-04-07] MEDS: metolazone 2.5mg tablet PO SCH (07:30)
[2020-04-07 07:32] LABS: BASOPHILS % (AUTO) 0.5 % (0-1); EOSINOPHILS % (AUTO) 0.1 % (0-6); HEMATOCRIT 29.9 % (35.0-45.0); LYMPHOCYTES # (AUTO) 0.4 X10'3 (1.1-4.8); LYMPHOCYTES % (AUTO) 5.4 % (21-51); MEAN CORPUSCULAR HEMOGLOBIN 33.3 PG (27.0-31.0); MEAN CORPUSCULAR HGB CONC 33.5 g/dL (33.0-36.5); MEAN CORPUSCULAR VOLUME 99.4 FL (78-98); MEAN PLATELET VOLUME 9.3 FL (7.4-10.4); MONOCYTES # (AUTO) 0.3 X10'3 (0-0.9); MONOCYTES % (AUTO) 3.5 % (2-12); NEUTROPHILS # (AUTO) 6.7 X10'3 (1.8-7.7); NEUTROPHILS % (AUTO) 90.5 % (42-75); PLATELET COUNT 185 X10'3 (140-440); RED CELL DISTRIBUTION WIDTH 14.7 % (11.5-14.5); WHITE BLOOD COUNT 7.4 X10'3 (4.5-11.0)
[2020-04-07] MEDS: furosemide 10 MG/1 ML 10ml inj IV SCH ×2 (07:32→20:02)
[2020-04-07 07:41] LABS: D-DIMER 1.14 MG/L FEU (0-0.50)
[2020-04-07 08:00] LABS: ALANINE AMINOTRANSFERASE 11 U/L (12-78); ALBUMIN 3.2 G/DL (3.4-5.0); ALBUMIN/GLOBULIN RATIO 0.7 (1.1-1.5); ALKALINE PHOSPHATASE 63 IU/L (46-116); ANION GAP 13 (8-16); ASPARTATE AMINO TRANSFERASE 18 U/L (10-37); BILIRUBIN,TOTAL 0.8 MG/DL (0.1-1.0); BLOOD UREA NITROGEN 53 MG/DL (7-18); BUN/CREATININE RATIO 5.7 (6.6-38.0); C-REACTIVE PROTEIN 13.61 MG/DL (0.0-0.5); CALCIUM 8.6 MG/DL (8.5-10.1); CHLORIDE 97 MMOL/L (99-107); CREATININE 9.26 MG/DL (0.40-0.90); GLUCOSE 95 MG/DL (70-104); MAGNESIUM 2.2 MG/DL (1.5-2.4); PHOSPHORUS 6.5 MG/DL (2.3-4.5); SODIUM 138 MMOL/L (135-145); TOTAL CARBON DIOXIDE 27.6 MMOL/L (24-32); TOTAL PROTEIN 7.5 G/DL (6.4-8.2); eGFR 5 ML/MIN
[2020-04-07] MEDS ORDERED: CefTRIAXone 2gm/D5W 50ml BAG 50 ML IV SCH (08:00)
[2020-04-07] MEDS ORDERED: albumin (human) 25% 100ml IV 100 ML IV PRN (08:00)
[2020-04-07] MEDS ORDERED: heparin 1,000 units/ml 10ml inj HE ONE ×2 (08:00)
[2020-04-07] MEDS ORDERED: heparin 1,000unit/ml 10ml vial 10 ML IV ONE (08:00)
[2020-04-07] MEDS ORDERED: epoetin 20,000 units/ml inj IV ONE (08:00)
[2020-04-07] MEDS ORDERED: azithromycin/NS 500mg/250ml 250 ML IV SCH (08:00)
[2020-04-07] MEDS ORDERED: heparin 1,000 units/ml 10ml inj IV ONE (08:00)
[2020-04-07 11:00] VITALS: BP 156/70
[2020-04-07] MEDS ORDERED: LIDOcaine 1% (10mg/ml) 2ml vial SQ ONE (11:20)
[2020-04-07] MEDS ORDERED: OXAZEpam 10mg capsule PO PRN (12:10)
--- NOTE | 2020-04-07 14:08 | NUR ---
Nutrition consult: Received consult requesting someone speak with pt regarding food preferences. Per PA note pt states she is very hungry, although she has declined all the foods offered to her. Pt on a renal diet with 1.5 L fluid restriction, on dialysis. Pt documented to have refused first meal, 50% PO intake second meal, and 25% PO intake third meal. Pending documentation of PO intake for today. Pt currently in airborne precautions d/t positive for COVID. RD talked to pt via telephone. Pt endorses a good appetite and reports good PO intake of lunch by consuming: rice, 1/2 meat, 100% of dessert, and some of the vegetables. Pt reports disliking the eggs available at breakfast however agrees to hard boiled eggs for breakfast. Pt reports disliking yogurt, cottage cheese, and tofu. All food preferences were d/w dietary. RD assisted pt on menu selection for dinner tonight and obtained preferences for breakfast tomorrow that were d/w dietary. RD informed pt on how to receive beverages since she is on a fluid restriction, pt verbalized understanding. Pt reports unable to obtain RD contact information d/t not having a writing utensil. Informed pt that RD will f/u with pt as needed pending further trends in PO intake. Pt denies food allergies or difficulty chewing/swallowing. Will continue to follow. Addendum: 04/07/20 at [address] Amended: Links added.
[2020-04-07 15:00] VITALS: BP 176/97
--- NOTE | 2020-04-07 15:24 | NUR ---
Pt. refused UF of 3000 ml UF during dialysis today r/t claims of cramping at outpatient dialysis. Pt. claims to have diarrhea today. Pt. tolerated three hours of dialysis today, no cramping, no n/v. Net UF 1000 ml.
[2020-04-07 18:00] VITALS: BP 180/70
--- NOTE | 2020-04-07 18:00 | NUR ---
Patient in room ORTHO 4012. I have received report from Sonia ABURTO and had the opportunity to ask questions and assume patient care.
--- NOTE | 2020-04-07 18:36 | NUR ---
Problems reprioritized. Patient report given, questions answered & plan of care reviewed with CRISELDA Gregg.
[2020-04-07] MEDS: diltiazem CD 120mg capsule (once-daily) PO SCH (20:06)
[2020-04-07 22:00] VITALS: BP 188/78
--- NOTE | 2020-04-08 05:16 | NUR ---
Patients IV came out. Patient cant have any IVs on her left arm. Looked on right hand and did not see any. Patient would not let me look at her wrist or forearm for an IV.
--- NOTE | 2020-04-08 06:08 | NUR ---
Problems reprioritized. Patient report given, questions answered & plan of care reviewed with Tania ABURTO.
[2020-04-08] MEDS ORDERED: lactulose 20gm/30ml cup PO PRN (07:10)
[2020-04-08 07:24] LABS: D-DIMER 1.19 MG/L FEU (0-0.50)
[2020-04-08 07:30] LABS: BASOPHILS % (AUTO) 0.3 % (0-1); EOSINOPHILS % (AUTO) 0 % (0-6); HEMATOCRIT 28.1 % (35.0-45.0); HEMOGLOBIN 9.5 g/dl (12.0-16.0); LYMPHOCYTES # (AUTO) 0.4 X10'3 (1.1-4.8); LYMPHOCYTES % (AUTO) 7.1 % (21-51); MEAN CORPUSCULAR HEMOGLOBIN 33.3 PG (27.0-31.0); MEAN CORPUSCULAR HGB CONC 33.7 g/dL (33.0-36.5); MEAN CORPUSCULAR VOLUME 98.9 FL (78-98); MEAN PLATELET VOLUME 9.3 FL (7.4-10.4); MONOCYTES # (AUTO) 0.3 X10'3 (0-0.9); MONOCYTES % (AUTO) 4.3 % (2-12); NEUTROPHILS # (AUTO) 5.2 X10'3 (1.8-7.7); NEUTROPHILS % (AUTO) 88.3 % (42-75); PLATELET COUNT 189 X10'3 (140-440); RED BLOOD COUNT 2.84 X10'6 (4.20-5.60); RED CELL DISTRIBUTION WIDTH 14.4 % (11.5-14.5); WHITE BLOOD COUNT 5.9 X10'3 (4.5-11.0)
[2020-04-08 07:41] LABS: ALANINE AMINOTRANSFERASE 10 U/L (12-78); ALBUMIN 2.8 G/DL (3.4-5.0); ALBUMIN/GLOBULIN RATIO 0.7 (1.1-1.5); ALKALINE PHOSPHATASE 55 IU/L (46-116); ANION GAP 11 (8-16); ASPARTATE AMINO TRANSFERASE 18 U/L (10-37); BILIRUBIN,TOTAL 0.6 MG/DL (0.1-1.0); BLOOD UREA NITROGEN 38 MG/DL (7-18); BUN/CREATININE RATIO 5.7 (6.6-38.0); C-REACTIVE PROTEIN 11.82 MG/DL (0.0-0.5); CALCIUM 8.5 MG/DL (8.5-10.1); CHLORIDE 99 MMOL/L (99-107); CREATININE 6.71 MG/DL (0.40-0.90); GLUCOSE 102 MG/DL (70-104); PHOSPHORUS 4.9 MG/DL (2.3-4.5); POTASSIUM 3.5 MMOL/L (3.5-5.1); SODIUM 137 MMOL/L (135-145); TOTAL CARBON DIOXIDE 27.1 MMOL/L (24-32); TOTAL PROTEIN 6.9 G/DL (6.4-8.2); eGFR 8 ML/MIN
--- NOTE | 2020-04-08 10:55 | NUR ---
PATIENT LEFT AMA 0900 SHE WANTED HALF N HALF RIGHT NOW AND WANTED TO WALK DOWN TO GET IT HERSELF. I TOLD HER SHE CANT WALK AROUND HOSPITAL WITH [facility] WE ARE ON A FLOOR THAT THE AIR IS SEALED TO THIS FLOOR. SHE SAID SHE WANTED TO LEAVE RIGHT THIS MINUTE. I TOLD HER I WOULD CALL HER DOCTOR AND LEFT A MESSAGE WITH DR LÓPEZ. PATIENT HAD PULLED OUT IV THE DAY BEFORE SO SHE DIDNT HAVE A IV TO REMOVE. I ASKED HER IF SHE HAD PRIMARY CARE THAT SHE IS VERY SICK AND NEEDS TO BE FOLLOWED BY SOMEONE SHE SAID "NO I DONT NEED ONE" BUT SHE GOES TO [facility] FOR HER DIALYSIS TREATMENTS. PATIENT CALLED HER DAUGHTER AND SHE WALHED DOWN TO MEET HER SMOKING BY THE FRONT DOOR.
[2020-04-08] MEDS ORDERED: lactobacillus rhamnosus 10,000 MMU CELLS/CAPSULE PO SCH (20:00)
== END 2020-04-08 08:30 | disposition left against medical advice (07) | DRG 720 ==
LOC: ER 02:22 → ED HOLD 07:57 → ORTHO 4S 09:16
PROVIDERS: ADMIT Internal Medicine Critical Care Medicine; ATTEND Internal Medicine Critical Care Medicine
PROC: 5A1D70Z Performance of Urinary Filtration, Intermittent, Less than 6 Hours Per Day (ICD-10-PCS; principal; 2020-04-07)
DX: A41.9 Sepsis, unspecified organism (principal); U07.1 COVID-19; I13.2 Hypertensive heart and chronic kidney disease with heart failure and with stage 5 chronic kidney disease, or end stage renal disease; F17.210 Nicotine dependence, cigarettes, uncomplicated; N18.6 End stage renal disease; I25.10 Atherosclerotic heart disease of native coronary artery without angina pectoris; I50.31 Acute diastolic (congestive) heart failure; Z53.29 Procedure and treatment not carried out because of patient's decision for other reasons; F12.90 Cannabis use, unspecified, uncomplicated; R06.03 Acute respiratory distress; Z82.49 Family history of ischemic heart disease and other diseases of the circulatory system; Z99.2 Dependence on renal dialysis; Z88.8 Allergy status to other drugs, medicaments and biological substances; Z95.1 Presence of aortocoronary bypass graft; Z79.899 Other long term (current) drug therapy; Z71.6 Tobacco abuse counseling
CPT/HCPCS: 36415; 71045; 80053; 81001; 83605; 83735; 83880; 84100; 84145; 84484; 85025; 85379; 85384; 85610; 85730; 86140; 87040; 87081; 87635; 93005; 94760; 96365; 96375; 99285; C9803; G0378; J0360; J0456; J0696; J1100; J1644; J1650; J1940; J2001; J3370; Q4081

== ENCOUNTER 2020-08-03 21:12 | Emergency (ER) | payer MEDICAID ==
[~2020-08-03] VITALS: Ht 175.3 cm; Wt 63.0 kg
[~2020-08-03 21:12] MED LIST changes: +CARCD120C PO; -DILT120C10 PO; -FOLI0.8T7 PO; -FURO40TA4 PO; +FURO80TA3 PO
[2020-08-03 22:54] LABS: BASOPHILS # (AUTO) 0.1 X10'3 (0-0.2); EOSINOPHILS # (AUTO) 0.3 X10'3 (0-0.9); HEMOGLOBIN 12.1 g/dl (12.0-16.0); RED CELL DISTRIBUTION WIDTH 15.4 % (11.5-14.5)
[2020-08-03 22:56] LABS: BASOPHILS % (AUTO) 1.3 % (0-1); EOSINOPHILS % (AUTO) 4.2 % (0-6); HEMATOCRIT 36.4 % (35.0-45.0); LYMPHOCYTES # (AUTO) 1.3 X10'3 (1.1-4.8); MEAN CORPUSCULAR HEMOGLOBIN 33.4 PG (27.0-31.0); MEAN CORPUSCULAR HGB CONC 33.4 g/dL (33.0-36.5); MEAN CORPUSCULAR VOLUME 100.2 FL (78-98); MEAN PLATELET VOLUME 9.3 FL (7.4-10.4); MONOCYTES # (AUTO) 0.5 X10'3 (0-0.9); MONOCYTES % (AUTO) 8.4 % (2-12); NEUTROPHILS # (AUTO) 3.9 X10'3 (1.8-7.7); NEUTROPHILS % (AUTO) 65.1 % (42-75); PLATELET COUNT 208 X10'3 (140-440); RED BLOOD COUNT 3.63 X10'6 (4.20-5.60)
[2020-08-03 23:32] LABS: ALANINE AMINOTRANSFERASE 15 U/L (12-78); ALBUMIN 3.9 G/DL (3.4-5.0); ALKALINE PHOSPHATASE 74 IU/L (46-116); ANION GAP 13 (8-16); ASPARTATE AMINO TRANSFERASE 19 U/L (10-37); BILIRUBIN,TOTAL 0.8 MG/DL (0.1-1.0); BLOOD UREA NITROGEN 32 MG/DL (7-18); BUN/CREATININE RATIO 3.8 (6.6-38.0); CHLORIDE 99 MMOL/L (99-107); CREATININE 8.48 MG/DL (0.40-0.90); GLUCOSE 108 MG/DL (70-104); LIPASE 135 U/L (73-393); POTASSIUM 4.3 MMOL/L (3.5-5.1); SODIUM 139 MMOL/L (135-145); TOTAL CARBON DIOXIDE 26.8 MMOL/L (24-32); eGFR 6 ML/MIN
[2020-08-04 00:02] LABS: URINE HCG NEGATIVE (NEG)
[2020-08-04 00:19] LABS: CLARITY,URINE CLEAR (Clear); COLOR,URINE YELLOW (Yellow); GLUCOSE, URINE 100 mg/dl (Neg); KETONES,URINE NEGATIVE (Neg); LEUKOCYTE ESTERASE ,URINE NEGATIVE (Neg); NITRITES, URINE NEGATIVE (Neg); OCCULT BLOOD,URINE MODERATE (Neg); PH,URINE >=9.0 (4.8-8.0); PROTEIN,URINE 100 mg/dl (Neg); UROBILINOGEN,URINE 0.2 E.U/dL (0.2-1.0)
[2020-08-04] MEDS ORDERED: labetalol 100mg tablet PO ONE (00:25)
[2020-08-04] MEDS ORDERED: labetalol 100mg tablet PO SCH (00:25)
[2020-08-04 00:26] LABS: UA COLLECTION TYPE CLN CATCH MIDSTREAM
[2020-08-04 00:27] LABS: BACTERIA,URINE NONE SEEN /HPF (Neg); RBC,URINE 0-2 /HPF (0-2); SQUAMOUS EPITHELIAL CELL,UR FEW /LPF (FEW); WBC,URINE 0-4 /HPF (0-4)
[2020-08-04] MEDS ORDERED: oxyCODONE/APAP 5-325mg tablet PO ONE (00:30)
[2020-08-04] MEDS ORDERED: hydrALAZINE 25 MG tablet PO ONE (00:39)
[2020-08-04] MEDS ORDERED: ondansetron 4mg rapidly disintigrating tab PO ONE (00:50)
[2020-08-04 00:55] VITALS: BP 203/93
== END 2020-08-04 00:59 | disposition home or self-care (01) ==
LOC: ER 23:41
DX: M54.89 Other dorsalgia (principal); G89.29 Other chronic pain; I10 Essential (primary) hypertension; I25.10 Atherosclerotic heart disease of native coronary artery without angina pectoris; I13.0 Hypertensive heart and chronic kidney disease with heart failure and stage 1 through stage 4 chronic kidney disease, or unspecified chronic kidney disease; N18.9 Chronic kidney disease, unspecified; F17.210 Nicotine dependence, cigarettes, uncomplicated; F12.90 Cannabis use, unspecified, uncomplicated; F15.90 Other stimulant use, unspecified, uncomplicated; Z87.01 Personal history of pneumonia (recurrent); Z98.890 Other specified postprocedural states; Z79.899 Other long term (current) drug therapy
CPT/HCPCS: 36415; 80053; 81001; 81003; 81025; 83690; 85025; 99284

== ENCOUNTER 2020-09-22 16:03 | Emergency (ER) | payer MEDICAID ==
[~2020-09-22] VITALS: Ht 172.7 cm; Wt 62.0 kg
[2020-09-22 16:26] VITALS: BP 149/70
== END 2020-09-22 22:27 | disposition left against medical advice (07) ==
LOC: ER 16:03
DX: R10.9 Unspecified abdominal pain (principal); Z53.21 Procedure and treatment not carried out due to patient leaving prior to being seen by health care provider

== ENCOUNTER 2020-11-09 20:09 | Emergency (ER) | payer MEDICAID ==
[~2020-11-09] VITALS: Ht 175.3 cm; Wt 60.0 kg
[2020-11-09 20:28] VITALS: BP 218/106
[2020-11-09 22:13] LABS: BASOPHILS # (AUTO) 0.1 X10'3 (0-0.2); BASOPHILS % (AUTO) 1.1 % (0-1); EOSINOPHILS % (AUTO) 0.6 % (0-6); HEMATOCRIT 26.3 % (35.0-45.0); HEMOGLOBIN 8.8 g/dl (12.0-16.0); LYMPHOCYTES # (AUTO) 0.9 X10'3 (1.1-4.8); LYMPHOCYTES % (AUTO) 11.6 % (21-51); MEAN CORPUSCULAR HEMOGLOBIN 34.6 PG (27.0-31.0); MEAN CORPUSCULAR HGB CONC 33.6 g/dL (33.0-36.5); MEAN PLATELET VOLUME 9.8 FL (7.4-10.4); MONOCYTES # (AUTO) 0.7 X10'3 (0-0.9); MONOCYTES % (AUTO) 8.9 % (2-12); NEUTROPHILS # (AUTO) 5.9 X10'3 (1.8-7.7); NEUTROPHILS % (AUTO) 77.8 % (42-75); PLATELET COUNT 191 X10'3 (140-440); RED BLOOD COUNT 2.55 X10'6 (4.20-5.60); RED CELL DISTRIBUTION WIDTH 15.3 % (11.5-14.5); WHITE BLOOD COUNT 7.5 X10'3 (4.5-11.0)
[2020-11-09 22:32] LABS: ALANINE AMINOTRANSFERASE 25 U/L (12-78); ALBUMIN 4.2 G/DL (3.4-5.0); ALBUMIN/GLOBULIN RATIO 1.2 (1.1-1.5); ALKALINE PHOSPHATASE 54 IU/L (46-116); ANION GAP 17 (8-16); ASPARTATE AMINO TRANSFERASE 42 U/L (10-37); BILIRUBIN,TOTAL 1.1 MG/DL (0.1-1.0); BLOOD UREA NITROGEN 57 MG/DL (7-18); BUN/CREATININE RATIO 4.4 (6.6-38.0); CALCIUM 8.5 MG/DL (8.5-10.1); CHLORIDE 98 MMOL/L (99-107); CREATININE 13.07 MG/DL (0.40-0.90); GLUCOSE 96 MG/DL (70-104); POTASSIUM 4.6 MMOL/L (3.5-5.1); SODIUM 140 MMOL/L (135-145); TOTAL CARBON DIOXIDE 24.8 MMOL/L (24-32); TOTAL PROTEIN 7.8 G/DL (6.4-8.2); eGFR 4 ML/MIN
== END 2020-11-10 06:41 | disposition left against medical advice (07) ==
LOC: ER 20:10
DX: N23 Unspecified renal colic (principal); Z53.21 Procedure and treatment not carried out due to patient leaving prior to being seen by health care provider
CPT/HCPCS: 36415; 80053; 85025

== ENCOUNTER 2020-12-07 20:54 | Emergency (ER) | payer MEDICAID ==
[~2020-12-07] VITALS: Ht 175.3 cm; Wt 62.0 kg
[2020-12-07 22:11] LABS: BASOPHILS # (AUTO) 0.1 X10'3 (0-0.2); EOSINOPHILS # (AUTO) 0.2 X10'3 (0-0.9); HEMATOCRIT 24.8 % (35.0-45.0); HEMOGLOBIN 8.1 g/dl (12.0-16.0); MEAN CORPUSCULAR HGB CONC 32.7 g/dL (33.0-36.5); MONOCYTES # (AUTO) 0.5 X10'3 (0-0.9); RED CELL DISTRIBUTION WIDTH 18.3 % (11.5-14.5)
[2020-12-07 22:12] LABS: BASOPHILS % (AUTO) 1.5 % (0-1); EOSINOPHILS % (AUTO) 2.5 % (0-6); LYMPHOCYTES # (AUTO) 0.9 X10'3 (1.1-4.8); LYMPHOCYTES % (AUTO) 13.3 % (21-51); MEAN CORPUSCULAR HEMOGLOBIN 36.4 PG (27.0-31.0); MEAN CORPUSCULAR VOLUME 111.1 FL (78-98); MEAN PLATELET VOLUME 9.1 FL (7.4-10.4); NEUTROPHILS # (AUTO) 5.3 X10'3 (1.8-7.7); NEUTROPHILS % (AUTO) 75.7 % (42-75); PLATELET COUNT 228 X10'3 (140-440); RED BLOOD COUNT 2.23 X10'6 (4.20-5.60)
[2020-12-07 22:23] LABS: ALANINE AMINOTRANSFERASE 15 U/L (12-78); ALBUMIN 3.4 G/DL (3.4-5.0); ALKALINE PHOSPHATASE 79 IU/L (46-116); ANION GAP 13 (8-16); ASPARTATE AMINO TRANSFERASE 17 U/L (10-37); BILIRUBIN,TOTAL 0.7 MG/DL (0.1-1.0); BLOOD UREA NITROGEN 44 MG/DL (7-18); BUN/CREATININE RATIO 7.3 (6.6-38.0); CALCIUM 7.5 MG/DL (8.5-10.1); CHLORIDE 101 MMOL/L (99-107); CREATININE 6.03 MG/DL (0.40-0.90); GLUCOSE 191 MG/DL (70-104); LIPASE 189 U/L (73-393); POTASSIUM 4.5 MMOL/L (3.5-5.1); SODIUM 141 MMOL/L (135-145); TOTAL CARBON DIOXIDE 26.6 MMOL/L (24-32); TOTAL PROTEIN 6.9 G/DL (6.4-8.2); eGFR 9 ML/MIN
[2020-12-07 23:40] VITALS: BP 172/84
[2020-12-07 23:55] LABS: URINE HCG NEGATIVE (NEG)
[2020-12-07] MEDS ORDERED: oxyCODONE IR 5mg (immed. release) tablet PO ONE (23:55)
[2020-12-08 00:04] LABS: CLARITY,URINE CLEAR (Clear); COLOR,URINE YELLOW (Yellow); GLUCOSE, URINE NEGATIVE (Neg); KETONES,URINE NEGATIVE (Neg); LEUKOCYTE ESTERASE ,URINE NEGATIVE (Neg); NITRITES, URINE NEGATIVE (Neg); OCCULT BLOOD,URINE NEGATIVE (Neg); PROTEIN,URINE 100 mg/dl (Neg); UA COLLECTION TYPE CLN CATCH MIDSTREAM; UROBILINOGEN,URINE 0.2 E.U/dL (0.2-1.0)
[2020-12-08 00:05] LABS: BACTERIA,URINE 1+ /HPF (Neg); RBC,URINE NONE SEEN /HPF (0-2); SQUAMOUS EPITHELIAL CELL,UR MODERATE /LPF (FEW); WBC,URINE 0-4 /HPF (0-4)
[2020-12-08] MEDS ORDERED: iohexol 350MG/ML 100ml bottle IV ONE (00:11)
[2020-12-08 00:58] LABS: ANISOCYTOSIS 2+; LARGE PLATELETS FEW; PLATELET ESTIMATE NORMAL
[2020-12-08 00:59] LABS: SCHISTOCYTES FEW
[2020-12-08 01:00] LABS: POLYCHROMASIA 1+
== END 2020-12-08 01:50 | disposition home or self-care (01) ==
LOC: ER 20:55
DX: R10.84 Generalized abdominal pain (principal); I25.10 Atherosclerotic heart disease of native coronary artery without angina pectoris; I13.0 Hypertensive heart and chronic kidney disease with heart failure and stage 1 through stage 4 chronic kidney disease, or unspecified chronic kidney disease; N18.9 Chronic kidney disease, unspecified; F12.90 Cannabis use, unspecified, uncomplicated; F15.90 Other stimulant use, unspecified, uncomplicated; Z87.01 Personal history of pneumonia (recurrent); Z98.890 Other specified postprocedural states; Z79.899 Other long term (current) drug therapy
CPT/HCPCS: 36415; 71275; 74174; 80053; 81001; 81025; 83690; 85008; 85025; 99285; Q9967; 81003

== ENCOUNTER 2020-12-29 10:48 | Emergency (ER) | payer MEDICAID ==
[~2020-12-29] VITALS: Ht 175.3 cm; Wt 61.4 kg
[2020-12-29 10:59] VITALS: BP 231/101
--- NOTE | 2020-12-29 12:00 | NUR ---
Spoke with Miroslava from [facility] regarding patient returning. Miroslava stated to have patient come back and she would try and fit patient in.
== END 2020-12-29 12:11 | disposition home or self-care (01) ==
LOC: ER 10:49
DX: J02.9 Acute pharyngitis, unspecified (principal); Z20.822 Contact with and (suspected) exposure to COVID-19; R06.02 Shortness of breath; I25.10 Atherosclerotic heart disease of native coronary artery without angina pectoris; I13.2 Hypertensive heart and chronic kidney disease with heart failure and with stage 5 chronic kidney disease, or end stage renal disease; N18.6 End stage renal disease; F12.90 Cannabis use, unspecified, uncomplicated; F15.90 Other stimulant use, unspecified, uncomplicated; Z99.2 Dependence on renal dialysis; Z87.01 Personal history of pneumonia (recurrent); Z98.890 Other specified postprocedural states; Z88.8 Allergy status to other drugs, medicaments and biological substances; Z79.899 Other long term (current) drug therapy
CPT/HCPCS: 87635; 99283; C9803

== ENCOUNTER 2021-01-02 01:36 | Emergency (ER) | payer MEDICAID ==
[~2021-01-02] VITALS: Ht 165.1 cm; Wt 68.0 kg
[2021-01-02 03:09] LABS: BASOPHILS # (AUTO) 0.1 X10'3 (0-0.2); BASOPHILS % (AUTO) 1.1 % (0-1); EOSINOPHILS # (AUTO) 0.2 X10'3 (0-0.9); EOSINOPHILS % (AUTO) 2.7 % (0-6); HEMATOCRIT 25.3 % (35.0-45.0); HEMOGLOBIN 8.7 g/dl (12.0-16.0); LYMPHOCYTES # (AUTO) 0.8 X10'3 (1.1-4.8); LYMPHOCYTES % (AUTO) 12.4 % (21-51); MEAN CORPUSCULAR HEMOGLOBIN 35.6 PG (27.0-31.0); MEAN CORPUSCULAR HGB CONC 34.2 g/dL (33.0-36.5); MEAN CORPUSCULAR VOLUME 104.3 FL (78-98); MEAN PLATELET VOLUME 8.9 FL (7.4-10.4); MONOCYTES # (AUTO) 0.3 X10'3 (0-0.9); MONOCYTES % (AUTO) 4.5 % (2-12); NEUTROPHILS # (AUTO) 5.1 X10'3 (1.8-7.7); NEUTROPHILS % (AUTO) 79.3 % (42-75); PLATELET COUNT 306 X10'3 (140-440); RED BLOOD COUNT 2.43 X10'6 (4.20-5.60); RED CELL DISTRIBUTION WIDTH 16.6 % (11.5-14.5); WHITE BLOOD COUNT 6.4 X10'3 (4.5-11.0)
[2021-01-02 03:17] LABS: ALANINE AMINOTRANSFERASE 22 U/L (12-78); ALBUMIN 3.7 G/DL (3.4-5.0); ALBUMIN/GLOBULIN RATIO 0.9 (1.1-1.5); ALKALINE PHOSPHATASE 57 IU/L (46-116); ANION GAP 21 (8-16); ASPARTATE AMINO TRANSFERASE 21 U/L (10-37); BILIRUBIN,TOTAL 0.7 MG/DL (0.1-1.0); BLOOD UREA NITROGEN 71 MG/DL (7-18); BUN/CREATININE RATIO 6.9 (6.6-38.0); CALCIUM 9.1 MG/DL (8.5-10.1); CHLORIDE 97 MMOL/L (99-107); CREATININE 10.29 MG/DL (0.40-0.90); GLUCOSE 97 MG/DL (70-104); POTASSIUM 5.3 MMOL/L (3.5-5.1); SODIUM 141 MMOL/L (135-145); TOTAL CARBON DIOXIDE 23.5 MMOL/L (24-32); eGFR 5 ML/MIN
[2021-01-02] MEDS ORDERED: DOXYCYCLINE 100MG CAPSULE PO STA (03:34)
[2021-01-02] MEDS ORDERED: CefTRIAXone 2gm/D5W 50ml BAG 50 ML IV ONE (03:35)
--- NOTE | 2021-01-02 04:09 | NUR ---
PT DIFFICULT TO ROUSE. STERNAL RUB REQUIRED FOR PT TO WAKE ENOUGH TO RESPOND VERBALLY. ONCE AWAKE PT A&0 X 3
[2021-01-02] MEDS ORDERED: labetalol 20mg/4ml (5mg/ml) syringe IV ONE (06:40)
[2021-01-02 07:10] VITALS: BP 191/101
[2021-01-02] MEDS ORDERED: ibuprofen 200mg tablet PO ONE (07:15)
[2021-01-02] MEDS ORDERED: AMOX-422 PO (07:21)
[2021-01-03] MEDS ORDERED: AMOX-580 PO (10:03)
[2021-01-03] MEDS ORDERED: CINA30TA7 PO (10:03)
[2021-01-03] MEDS ORDERED: ATOR40TA72 PO (10:03)
[2021-01-03] MEDS ORDERED: CLON0.1T2 PO (10:03)
[2021-01-03] MEDS ORDERED: FOLI1TAB34 PO (12:27)
[2021-01-03] MEDS ORDERED: ASPI-1071 PO (12:27)
[2021-01-03] MEDS ORDERED: CARV25TA2 PO (12:27)
[2021-01-03] MEDS ORDERED: FURO80TA3 PO (12:27)
== END 2021-01-02 07:47 | disposition home or self-care (01) ==
LOC: ER 01:37
DX: J18.9 Pneumonia, unspecified organism (principal); Z20.822 Contact with and (suspected) exposure to COVID-19; R06.02 Shortness of breath; D64.9 Anemia, unspecified; I13.2 Hypertensive heart and chronic kidney disease with heart failure and with stage 5 chronic kidney disease, or end stage renal disease; I50.9 Heart failure, unspecified; N18.6 End stage renal disease; F12.90 Cannabis use, unspecified, uncomplicated; F15.90 Other stimulant use, unspecified, uncomplicated; Z99.2 Dependence on renal dialysis; Z87.01 Personal history of pneumonia (recurrent); Z98.890 Other specified postprocedural states; Z88.8 Allergy status to other drugs, medicaments and biological substances; Z79.899 Other long term (current) drug therapy
CPT/HCPCS: 36415; 70450; 71045; 80053; 82140; 83880; 85025; 87635; 93005; 96365; 96375; 99285; C9803; J0696; J3490

== ENCOUNTER 2021-01-03 05:46 | Inpatient (IN) | payer MEDICAID ==
[~2021-01-03] VITALS: Ht 172.7 cm; Wt 68.2 kg
[~2021-01-03 05:46] MED LIST changes: +AMOX-422 PO
[2021-01-03 06:41] LABS: BASOPHILS # (AUTO) 0.1 X10'3 (0-0.2); EOSINOPHILS # (AUTO) 0.1 X10'3 (0-0.9); EOSINOPHILS % (AUTO) 1.8 % (0-6); HEMATOCRIT 22.8 % (35.0-45.0); HEMOGLOBIN 7.7 g/dl (12.0-16.0); LYMPHOCYTES # (AUTO) 0.8 X10'3 (1.1-4.8); LYMPHOCYTES % (AUTO) 11.8 % (21-51); MEAN CORPUSCULAR HEMOGLOBIN 35.3 PG (27.0-31.0); MEAN CORPUSCULAR HGB CONC 33.9 g/dL (33.0-36.5); MEAN CORPUSCULAR VOLUME 104.1 FL (78-98); MEAN PLATELET VOLUME 8.7 FL (7.4-10.4); MONOCYTES # (AUTO) 0.4 X10'3 (0-0.9); MONOCYTES % (AUTO) 6.1 % (2-12); NEUTROPHILS # (AUTO) 5.3 X10'3 (1.8-7.7); NEUTROPHILS % (AUTO) 79.3 % (42-75); PLATELET COUNT 264 X10'3 (140-440); RED BLOOD COUNT 2.19 X10'6 (4.20-5.60); RED CELL DISTRIBUTION WIDTH 16.5 % (11.5-14.5); WHITE BLOOD COUNT 6.7 X10'3 (4.5-11.0)
[2021-01-03 07:03] LABS: ALBUMIN 3.3 G/DL (3.4-5.0); ANION GAP 10 (8-16); BLOOD UREA NITROGEN 40 MG/DL (7-18); BUN/CREATININE RATIO 6.3 (6.6-38.0); CALCIUM 9.2 MG/DL (8.5-10.1); CHLORIDE 101 MMOL/L (99-107); GLUCOSE 99 MG/DL (70-104); POTASSIUM 4.3 MMOL/L (3.5-5.1); SODIUM 140 MMOL/L (135-145); TOTAL CARBON DIOXIDE 29.1 MMOL/L (24-32); TROPONIN I 0.07 NG/ML (0.0-0.05); eGFR 7 ML/MIN
[2021-01-03] MEDS ORDERED: aspirin 325mg tablet PO ONE (07:30)
--- NOTE | 2021-01-03 07:44 | NUR ---
PT C/O SOB. 02 SAT 93% RA. 2 L/MN NC APPLIED 02 SAT 93%
[2021-01-03] MEDS ORDERED: hydrALAZINE 20mg/ml inj. IV ONE (08:00)
[2021-01-03] MEDS ORDERED: CefTRIAXone/D5W-Rocephin 1gm 50 ML IV ONE (08:00)
[2021-01-03] MEDS ORDERED: ATOR40TA72 PO (10:03)
[2021-01-03] MEDS ORDERED: AMOX-580 PO (10:03)
[2021-01-03] MEDS ORDERED: CLON0.1T2 PO (10:03)
[2021-01-03] MEDS ORDERED: CINA30TA7 PO (10:03)
[2021-01-03] MEDS ORDERED: HYDROcodone/acetaminophen 5mg/325mg tablet PO PRN (10:45)
[2021-01-03] MEDS ORDERED: bisacodyl 10mg suppository rectal RC PRN (10:45)
[2021-01-03] MEDS ORDERED: ipratropium/albuterol 3ml nebule NEB PRN (10:45)
[2021-01-03] MEDS ORDERED: diphenhydrAMINE 25mg capsule PO PRN (10:45)
[2021-01-03] MEDS ORDERED: diphenhydrAMINE 50 mg/ml inj IV PRN (10:45)
[2021-01-03] MEDS ORDERED: magnesium hydroxide 30ml (MOM) UD suspension PO PRN (10:45)
[2021-01-03] MEDS ORDERED: ondansetron/PF 4mg/2ml inj IV PRN (10:45)
[2021-01-03] MEDS ORDERED: acetaminophen 650mg rectal suppository RC PRN (10:45)
[2021-01-03] MEDS ORDERED: mag hydrox/Alum hydrox/simeth 30ml oral suspension PO PRN (10:45)
[2021-01-03] MEDS ORDERED: morphine 2 MG/ML inj. syringe IV PRN ×2 (10:45)
[2021-01-03] MEDS ORDERED: acetaminophen 325mg tablet PO PRN (10:45)
[2021-01-03] MEDS ORDERED: hydrALAZINE 20mg/ml inj. IV PRN (11:00)
[2021-01-03 11:31] LABS: MAGNESIUM 2.4 MG/DL (1.5-2.4); PHOSPHORUS 5.9 MG/DL (2.3-4.5)
[2021-01-03 11:34] LABS: PARTIAL THROMBOPLASTIN TIME 28 SECONDS (22-32)
[2021-01-03] MEDS: amLODIPine 5mg tablet PO SCH (11:46)
[2021-01-03] MEDS: azithromycin/NS 500mg/250ml 250 ML IV SCH (11:46)
[2021-01-03 12:06] LABS: HEMOGLOBIN A1C 4.1 % (4.5-6.2)
[2021-01-03] MEDS ORDERED: FOLI1TAB34 PO (12:27)
[2021-01-03] MEDS ORDERED: ASPI-1071 PO (12:27)
[2021-01-03] MEDS ORDERED: FURO80TA3 PO (12:27)
[2021-01-03] MEDS ORDERED: CARV25TA2 PO (12:27)
[2021-01-03] MEDS: hydrALAZINE 25 MG tablet PO SCH ×2 (13:48→20:04)
--- NOTE | 2021-01-03 13:50 | NUR ---
PT ATE 100% OF LUNCH. SITTING UP AT BEDSIDE.
--- NOTE | 2021-01-03 14:35 | NUR ---
dr. mills at bedside. will plan on ordering dialysis tomorrow for pt.
--- NOTE | 2021-01-03 15:02 | NUR ---
PT HASNT VOIDED TODAY
--- NOTE | 2021-01-03 15:33 | NUR ---
Patient in room ED 1. I have received report from Reina RN and had the opportunity to ask questions in preparation to assume patient care. Per Reina, pt hypertensive systolic 190's. this nurse requested prn hydralazine be administered per current prn order, prior to bringing pt up to tele floor. Per Reina, pt on 2lpm/o2/nc, anuric this shift, with good appetite.
[2021-01-03 16:00] VITALS: BP 178/80
[2021-01-03 16:15] VITALS: BP 162/74
[2021-01-03] MEDS: HYDROcodone/acetaminophen 10/325mg tab PO PRN (17:10)
[2021-01-03 17:30] VITALS: BP 152/68
[2021-01-03 18:00] VITALS: BP 180/81
--- NOTE | 2021-01-03 18:32 | NUR ---
Problems reprioritized. Patient report given, questions answered & plan of care reviewed with Everardo lobo. Pt napping, on her right side, breathing even and non labored. no s/sx acute distress
[2021-01-03] MEDS: heparin, porcine 5000 units/ml vial SQ SCH (19:22)
[2021-01-03] MEDS: cloNIDine 0.1 mg tablet PO SCH (19:22)
[2021-01-03] MEDS: docusate sod 100mg capsule PO SCH (19:22)
[2021-01-03] MEDS: carVEDilol 12.5mg tablet PO SCH (19:23)
[2021-01-03] MEDS ORDERED: temazepam 15mg capsule PO PRN (21:00)
[2021-01-03 23:00] VITALS: BP 131/86
[2021-01-04 02:00] VITALS: BP 164/72
[2021-01-04 02:33] LABS: BASOPHILS # (AUTO) 0.1 X10'3 (0-0.2); BASOPHILS % (AUTO) 1.2 % (0-1); EOSINOPHILS # (AUTO) 0.2 X10'3 (0-0.9); EOSINOPHILS % (AUTO) 3.2 % (0-6); HEMOGLOBIN 7.3 g/dl (12.0-16.0); LYMPHOCYTES # (AUTO) 0.9 X10'3 (1.1-4.8); MEAN CORPUSCULAR HEMOGLOBIN 35.3 PG (27.0-31.0); MEAN CORPUSCULAR HGB CONC 33.7 g/dL (33.0-36.5); MEAN CORPUSCULAR VOLUME 104.7 FL (78-98); MEAN PLATELET VOLUME 8.9 FL (7.4-10.4); MONOCYTES # (AUTO) 0.4 X10'3 (0-0.9); MONOCYTES % (AUTO) 7.7 % (2-12); NEUTROPHILS # (AUTO) 4.1 X10'3 (1.8-7.7); NEUTROPHILS % (AUTO) 71.9 % (42-75); PLATELET COUNT 235 X10'3 (140-440); RED BLOOD COUNT 2.07 X10'6 (4.20-5.60); RED CELL DISTRIBUTION WIDTH 16.6 % (11.5-14.5); WHITE BLOOD COUNT 5.7 X10'3 (4.5-11.0)
[2021-01-04 02:47] LABS: HEMATOCRIT 21.7 % (35.0-45.0)
[2021-01-04 02:49] LABS: ALANINE AMINOTRANSFERASE 18 U/L (12-78); ALBUMIN 2.9 G/DL (3.4-5.0); ALBUMIN/GLOBULIN RATIO 0.8 (1.1-1.5); ALKALINE PHOSPHATASE 49 IU/L (46-116); ANION GAP 11 (8-16); ASPARTATE AMINO TRANSFERASE 16 U/L (10-37); BILIRUBIN,TOTAL 0.5 MG/DL (0.1-1.0); BLOOD UREA NITROGEN 49 MG/DL (7-18); BUN/CREATININE RATIO 6.5 (6.6-38.0); CALCIUM 8.6 MG/DL (8.5-10.1); CHLORIDE 101 MMOL/L (99-107); CHOL/HDL RATIO 1.7 (0.00-4.99); CHOLESTEROL 136 MG/DL (0-200); CREATININE 7.53 MG/DL (0.40-0.90); GLUCOSE 93 MG/DL (70-104); HDL CHOLESTEROL 78 MG/DL (35-60); LDL CHOLESTEROL 52 MG/DL (50-100); POTASSIUM 4.8 MMOL/L (3.5-5.1); SODIUM 142 MMOL/L (135-145); TOTAL CARBON DIOXIDE 29.6 MMOL/L (24-32); TOTAL PROTEIN 6.5 G/DL (6.4-8.2); TRIGLYCERIDES 34 MG/DL (20-135); eGFR 6 ML/MIN
[2021-01-04 06:00] VITALS: BP 166/80
[2021-01-04] MEDS ORDERED: aspirin 81mg, enteric-coated 1 TAB TABLET.DR PO SCH (08:00)
[2021-01-04] MEDS: CefTRIAXone/D5W-Rocephin 1gm 50 ML IV SCH ×3 (08:07→19:00)
[2021-01-04] MEDS: azithromycin/NS 500mg/250ml 250 ML IV SCH (08:08)
[2021-01-04] MEDS: cloNIDine 0.1 mg tablet PO SCH ×2 (08:09→21:23)
[2021-01-04] MEDS: amLODIPine 5mg tablet PO SCH (08:09)
[2021-01-04] MEDS: docusate sod 100mg capsule PO SCH ×2 (08:09→21:26)
[2021-01-04] MEDS: pantoprazole 40mg Tablet.DR PO SCH (08:09)
[2021-01-04] MEDS: hydrALAZINE 25 MG tablet PO SCH ×3 (08:09→21:25)
[2021-01-04] MEDS: heparin, porcine 5000 units/ml vial SQ SCH ×2 (08:09→21:25)
[2021-01-04] MEDS: carVEDilol 12.5mg tablet PO SCH ×2 (08:10→21:24)
[2021-01-04] MEDS: atorvastatin 20mg tablet PO SCH (08:10)
[2021-01-04] MEDS: aspirin 81mg, enteric-coated 1 TAB TABLET.DR PO SCH (08:10)
[2021-01-04] MEDS: HYDROcodone/acetaminophen 10/325mg tab PO PRN ×3 (08:11→21:24)
--- NOTE | 2021-01-04 08:52 | NUR ---
PAGED PICC REGARDING EXTENDED PIV
[2021-01-04 11:00] VITALS: BP 128/46
[2021-01-04] MEDS ORDERED: heparin 1,000 units/ml 10ml inj IV ONE (13:55)
[2021-01-04] MEDS ORDERED: EPOETIN ALFA-EPBX 20,000 UNIT/ML 1 ML MDV IV ONE (13:55)
[2021-01-04] MEDS ORDERED: albumin (human) 25% 100ml IV 100 ML IV PRN (13:55)
[2021-01-04] MEDS ORDERED: heparin 1,000unit/ml 10ml vial 10 ML IV ONE (13:55)
[2021-01-04 15:00] VITALS: BP 157/73
[2021-01-04] MEDS: azithromycin 250mg tablet PO SCH (15:00)
[2021-01-04] MEDS ORDERED: LIDOcaine 1% (10mg/ml) 2ml vial SQ ONE (15:45)
[2021-01-04] MEDS ORDERED: salt irrigation nasal spray 45 ML SPRAY NS PRN (18:20)
--- NOTE | 2021-01-04 18:27 | NUR ---
Problems reprioritized. Patient report given, questions answered & plan of care reviewed with RCISELDA Murry.
--- NOTE | 2021-01-04 18:29 | NUR ---
Patient in room PCU 3023. I have received report from CRISELDA Weinberg and had the opportunity to ask questions and assume patient care.
[2021-01-04 19:00] VITALS: BP 159/74
--- NOTE | 2021-01-04 21:00 | NUR ---
Patient dialysis completed, 4L was removed, tolerated procedure well. If needed will dialize on Thursday again. Safety measures and comfort maintained. Will continue to monitor.
[2021-01-04] MEDS: lactobacillus rhamnosus 10,000 MMU CELLS/CAPSULE PO SCH (21:23)
[2021-01-04 23:00] VITALS: BP 146/64
[2021-01-05] MEDS: HYDROcodone/acetaminophen 10/325mg tab PO PRN (02:55)
[2021-01-05 03:00] VITALS: BP 138/75
[2021-01-05] MEDS: ondansetron 4mg rapidly disintigrating tab PO PRN (03:47)
[2021-01-05 06:00] VITALS: BP 148/69
--- NOTE | 2021-01-05 06:09 | NUR ---
Problems reprioritized. Patient report given, questions answered & plan of care reviewed with CRISELDA Weinberg.
[2021-01-05 06:51] LABS: BASOPHILS # (AUTO) 0.1 X10'3 (0-0.2); BASOPHILS % (AUTO) 1.1 % (0-1); EOSINOPHILS # (AUTO) 0.2 X10'3 (0-0.9); EOSINOPHILS % (AUTO) 2.6 % (0-6); HEMATOCRIT 22.3 % (35.0-45.0); HEMOGLOBIN 7.4 g/dl (12.0-16.0); LYMPHOCYTES # (AUTO) 0.7 X10'3 (1.1-4.8); LYMPHOCYTES % (AUTO) 11.8 % (21-51); MEAN CORPUSCULAR HEMOGLOBIN 35.1 PG (27.0-31.0); MEAN CORPUSCULAR HGB CONC 33.2 g/dL (33.0-36.5); MEAN CORPUSCULAR VOLUME 105.7 FL (78-98); MEAN PLATELET VOLUME 8.4 FL (7.4-10.4); MONOCYTES # (AUTO) 0.5 X10'3 (0-0.9); MONOCYTES % (AUTO) 7.9 % (2-12); NEUTROPHILS # (AUTO) 4.5 X10'3 (1.8-7.7); NEUTROPHILS % (AUTO) 76.6 % (42-75); PLATELET COUNT 215 X10'3 (140-440); RED BLOOD COUNT 2.11 X10'6 (4.20-5.60); RED CELL DISTRIBUTION WIDTH 17.2 % (11.5-14.5); WHITE BLOOD COUNT 5.9 X10'3 (4.5-11.0)
[2021-01-05 07:06] LABS: ALANINE AMINOTRANSFERASE 17 U/L (12-78); ALBUMIN 2.9 G/DL (3.4-5.0); ALBUMIN/GLOBULIN RATIO 0.8 (1.1-1.5); ALKALINE PHOSPHATASE 46 IU/L (46-116); ANION GAP 13 (8-16); ASPARTATE AMINO TRANSFERASE 14 U/L (10-37); BILIRUBIN,TOTAL 0.4 MG/DL (0.1-1.0); BLOOD UREA NITROGEN 22 MG/DL (7-18); BUN/CREATININE RATIO 4.9 (6.6-38.0); CALCIUM 8.4 MG/DL (8.5-10.1); CHLORIDE 100 MMOL/L (99-107); CREATININE 4.47 MG/DL (0.40-0.90); GLUCOSE 102 MG/DL (70-104); POTASSIUM 4.3 MMOL/L (3.5-5.1); SODIUM 141 MMOL/L (135-145); TOTAL CARBON DIOXIDE 28.4 MMOL/L (24-32); TOTAL PROTEIN 6.7 G/DL (6.4-8.2); eGFR 10 ML/MIN
[2021-01-05] MEDS: hydrALAZINE 25 MG tablet PO SCH ×4 (09:31→21:10)
[2021-01-05] MEDS: heparin, porcine 5000 units/ml vial SQ SCH ×2 (09:31→21:09)
[2021-01-05] MEDS: amLODIPine 5mg tablet PO SCH (09:31)
[2021-01-05] MEDS: aspirin 81mg, enteric-coated 1 TAB TABLET.DR PO SCH (09:31)
[2021-01-05] MEDS: cloNIDine 0.1 mg tablet PO SCH ×2 (09:32→21:06)
[2021-01-05] MEDS: atorvastatin 20mg tablet PO SCH (09:32)
[2021-01-05] MEDS: azithromycin 250mg tablet PO SCH (09:32)
[2021-01-05] MEDS: lactobacillus rhamnosus 10,000 MMU CELLS/CAPSULE PO SCH ×2 (09:32→21:07)
[2021-01-05] MEDS: carVEDilol 12.5mg tablet PO SCH ×2 (09:32→21:07)
[2021-01-05] MEDS: docusate sod 100mg capsule PO SCH ×2 (09:32→21:06)
[2021-01-05 11:00] VITALS: BP 113/54
[2021-01-05] MEDS: CefTRIAXone/D5W-Rocephin 1gm 50 ML IV SCH (11:00)
[2021-01-05] MEDS: pantoprazole 40mg Tablet.DR PO SCH (11:00)
--- NOTE | 2021-01-05 11:47 | NUR ---
page: positive MRSA PAGER ID: [phone] MESSAGE: room 3023B Sarah NEGRETE MRSA SCREEN Final: nares Organism 1: STAPHYLOCOCCUS AUREUS FEW COLONIES METHICILLIN RESISTANT STAPH AUREUS ISOLATED (MRSA) NOT PREVIOUSLY REPORTED
[2021-01-05] MEDS: HYDROmorphone inj. 0.5 MG/0.5 ML DISP.SYRIN IV PRN ×2 (14:17→20:43)
[2021-01-05 15:00] VITALS: BP 143/65
--- NOTE | 2021-01-05 18:11 | NUR ---
Problems reprioritized. Patient report given, questions answered & plan of care reviewed with Day ABURTO.
[2021-01-05 19:00] VITALS: BP 170/85
[2021-01-05 23:00] VITALS: BP 163/68
[2021-01-06] MEDS: HYDROcodone/acetaminophen 10/325mg tab PO PRN ×4 (02:31→17:26)
[2021-01-06 06:00] VITALS: BP 168/71
[2021-01-06] MEDS ORDERED: EPOETIN ALFA-EPBX 20,000 UNIT/ML 1 ML MDV IV ONE (08:00)
[2021-01-06] MEDS ORDERED: LIDOcaine 1% (10mg/ml) 2ml vial SQ ONE (08:00)
[2021-01-06] MEDS ORDERED: heparin 1,000 units/ml 10ml inj IV ONE (08:00)
[2021-01-06] MEDS: hydrALAZINE 25 MG tablet PO SCH ×3 (08:00→13:00)
[2021-01-06] MEDS ORDERED: normal saline 1000ml 250 ML IV PRN (08:00)
[2021-01-06] MEDS: pantoprazole 40mg Tablet.DR PO SCH (08:11)
[2021-01-06] MEDS: amLODIPine 5mg tablet PO SCH (08:11)
[2021-01-06] MEDS: carVEDilol 12.5mg tablet PO SCH (08:12)
[2021-01-06] MEDS: docusate sod 100mg capsule PO SCH (08:12)
[2021-01-06] MEDS: azithromycin 250mg tablet PO SCH (08:12)
[2021-01-06] MEDS: atorvastatin 20mg tablet PO SCH (08:12)
[2021-01-06] MEDS: lactobacillus rhamnosus 10,000 MMU CELLS/CAPSULE PO SCH (08:12)
[2021-01-06] MEDS: aspirin 81mg, enteric-coated 1 TAB TABLET.DR PO SCH (08:12)
[2021-01-06] MEDS: cloNIDine 0.1 mg tablet PO SCH (08:12)
[2021-01-06] MEDS: heparin, porcine 5000 units/ml vial SQ SCH (08:13)
[2021-01-06] MEDS: CefTRIAXone/D5W-Rocephin 1gm 50 ML IV SCH (08:17)
[2021-01-06] MEDS: HYDROmorphone inj. 0.5 MG/0.5 ML DISP.SYRIN IV PRN (10:21)
[2021-01-06] MEDS ORDERED: CEFD300C3 PO (10:46)
[2021-01-06] MEDS: ondansetron 4mg rapidly disintigrating tab PO PRN (12:03)
== END 2021-01-06 17:35 | disposition home or self-care (01) | DRG 194 ==
LOC: ER 05:47 → UNDOADMIN 08:06 → ED HOLD 08:06 → PCU 3S 16:10 → ED HOLD 16:10
PROVIDERS: ADMIT Internal Medicine; ATTEND Family Medicine
PROC: 5A1D70Z Performance of Urinary Filtration, Intermittent, Less than 6 Hours Per Day (ICD-10-PCS; principal; 2021-01-04)
PROC: 5A1D70Z Performance of Urinary Filtration, Intermittent, Less than 6 Hours Per Day (ICD-10-PCS; 2021-01-05)
PROC: 5A1D70Z Performance of Urinary Filtration, Intermittent, Less than 6 Hours Per Day (ICD-10-PCS; 2021-01-06)
DX: I13.2 Hypertensive heart and chronic kidney disease with heart failure and with stage 5 chronic kidney disease, or end stage renal disease (principal); I21.A1 Myocardial infarction type 2; J18.9 Pneumonia, unspecified organism; N18.6 End stage renal disease; D63.8 Anemia in other chronic diseases classified elsewhere; Z95.1 Presence of aortocoronary bypass graft; E11.22 Type 2 diabetes mellitus with diabetic chronic kidney disease; I50.33 Acute on chronic diastolic (congestive) heart failure; E78.5 Hyperlipidemia, unspecified; F12.90 Cannabis use, unspecified, uncomplicated; F15.10 Other stimulant abuse, uncomplicated; F17.210 Nicotine dependence, cigarettes, uncomplicated; I25.10 Atherosclerotic heart disease of native coronary artery without angina pectoris; Z82.49 Family history of ischemic heart disease and other diseases of the circulatory system; Z91.19 Patient's noncompliance with other medical treatment and regimen; Z95.5 Presence of coronary angioplasty implant and graft; Z99.2 Dependence on renal dialysis; Z88.8 Allergy status to other drugs, medicaments and biological substances; Z79.899 Other long term (current) drug therapy
CPT/HCPCS: 36415; 71045; 80048; 80053; 80061; 83036; 83735; 83880; 84100; 84484; 85025; 85610; 85730; 87081; 90935; 93005; 94640; 94760; 99285; G0257; G0378; J0360; J0456; J0696; J1170; J1644; J2001; J2270; Q4081

== ENCOUNTER 2021-02-04 16:18 | Emergency (ER) | payer MEDICAID ==
[~2021-02-04 16:18] MED LIST changes: -AMOX-422 PO; +ASPI-1071 PO; +ATOR40TA72 PO; -CARCD120C PO; +CARV25TA2 PO; +CEFD300C3 PO; +CLON0.1T2 PO; +FOLI1TAB34 PO; -LABE300T2 PO; -PHO667C PO
== END 2021-02-04 17:30 | disposition left against medical advice (07) ==
LOC: ER 16:19
DX: M54.9 Dorsalgia, unspecified (principal); Z53.21 Procedure and treatment not carried out due to patient leaving prior to being seen by health care provider

== ENCOUNTER 2021-02-06 22:34 | Inpatient (IN) | payer MEDICAID ==
[~2021-02-06] VITALS: Ht 175.3 cm; Wt 61.9 kg
[2021-02-06] MEDS ORDERED: hydrALAZINE 20mg/ml inj. IV ONE (22:55)
[2021-02-06 23:46] LABS: BASOPHILS # (AUTO) 0.1 X10'3 (0-0.2); BASOPHILS % (AUTO) 1.2 % (0-1); EOSINOPHILS # (AUTO) 0.2 X10'3 (0-0.9); EOSINOPHILS % (AUTO) 3.6 % (0-6); HEMOGLOBIN 9.1 g/dl (12.0-16.0); LYMPHOCYTES # (AUTO) 0.8 X10'3 (1.1-4.8); LYMPHOCYTES % (AUTO) 14.8 % (21-51); MEAN CORPUSCULAR HEMOGLOBIN 34.4 PG (27.0-31.0); MEAN CORPUSCULAR HGB CONC 33.5 g/dL (33.0-36.5); MEAN CORPUSCULAR VOLUME 102.7 FL (78-98); MEAN PLATELET VOLUME 9.7 FL (7.4-10.4); MONOCYTES # (AUTO) 0.4 X10'3 (0-0.9); MONOCYTES % (AUTO) 8.6 % (2-12); NEUTROPHILS # (AUTO) 3.7 X10'3 (1.8-7.7); NEUTROPHILS % (AUTO) 71.8 % (42-75); PLATELET COUNT 173 X10'3 (140-440); RED BLOOD COUNT 2.63 X10'6 (4.20-5.60); RED CELL DISTRIBUTION WIDTH 15.5 % (11.5-14.5); WHITE BLOOD COUNT 5.2 X10'3 (4.5-11.0)
[2021-02-07] MEDS ORDERED: acetaminophen 325mg tablet PO ONE
--- NOTE | 2021-02-07 00:03 | NUR ---
PT C/O SOB DUE TO BACK PAIN, [facility] OBTAINED ORDER FROM DR COURTNEY FOR TYLENOL FOR BACK PAIN, BROUGHT TO PT BEDSIDE AND PT REFUSED MEDICATION STATING "THAT ISNT GOING TO DO ANYTHING FOR THE PAIN".
[2021-02-07 00:09] LABS: ALANINE AMINOTRANSFERASE 18 U/L (12-78); ALKALINE PHOSPHATASE 71 IU/L (46-116); ANION GAP 17 (8-16); ASPARTATE AMINO TRANSFERASE 35 U/L (10-37); BILIRUBIN,TOTAL 1.3 MG/DL (0.1-1.0); BLOOD UREA NITROGEN 56 MG/DL (7-18); BUN/CREATININE RATIO 4.2 (6.6-38.0); CALCIUM 9.4 MG/DL (8.5-10.1); CHLORIDE 99 MMOL/L (99-107); CREATININE 13.25 MG/DL (0.40-0.90); GLUCOSE 91 MG/DL (70-104); POTASSIUM 4.3 MMOL/L (3.5-5.1); SODIUM 141 MMOL/L (135-145); TOTAL CARBON DIOXIDE 25.2 MMOL/L (24-32); eGFR 3 ML/MIN
[2021-02-07] MEDS ORDERED: aspirin 81mg tab.chew PO ONE (00:15)
[2021-02-07] MEDS ORDERED: iohexol 350MG/ML 100ml bottle IV ONE (01:54)
--- NOTE | 2021-02-07 02:06 | NUR ---
pt sitting at bedside without oxygen mask on face. stating having trouble breathing due to "phlegm in nose". advised pt to place oxygen mask back on face. pt c/o back pain again, reminded pt that she was offered tylenol earlier and delcined and ask pt if she would like some now. again stated "that won't work". spo2 on RA 96%.
--- NOTE | 2021-02-07 02:16 | NUR ---
railway signal electrician at bedside. pt states unablet o lay flat for scan. dr. pierre aware, awating orders.
[2021-02-07] MEDS ORDERED: LORazepam 2 mg/ml vial IV ONE (02:20)
[2021-02-07] MEDS ORDERED: ondansetron/PF 4mg/2ml inj IV ONE (02:20)
[2021-02-07] MEDS ORDERED: fentaNYL/PF 50MCG/1 ML 2ML syringe IV ONE (02:20)
[2021-02-07] MEDS ORDERED: PERFLUTREN PROTEIN-A MICROSPHR (Optison) 0.22 MG/ML 3ML VIAL IV ONE (06:05)
[2021-02-07] MEDS ORDERED: magnesium Cl slow-release 64mg tablet PO PRN (06:05)
[2021-02-07] MEDS ORDERED: mag hydrox/Alum hydrox/simeth 30ml oral suspension PO PRN (06:05)
[2021-02-07] MEDS ORDERED: magnesium 4gm in 100ml NS 100 ML IV PRN (06:05)
[2021-02-07] MEDS ORDERED: potassium CL 10mEq/100ml bag 100 ML IV PRN (06:05)
[2021-02-07] MEDS: normal saline 1000ml 1,000 ML IV SCH (06:05)
[2021-02-07] MEDS ORDERED: acetaminophen 325mg tablet PO PRN ×2 (06:05)
[2021-02-07] MEDS ORDERED: HYDROcodone/acetaminophen 5mg/325mg tablet PO PRN (06:05)
[2021-02-07] MEDS ORDERED: magnesium 2GM in 50ml NS 50 ML IV PRN (06:05)
[2021-02-07] MEDS ORDERED: potassium Cl 20 mEq SR tablet PO PRN ×2 (06:05)
[2021-02-07] MEDS ORDERED: aminophylline 250mg/10ml inj. IV PRN (06:10)
[2021-02-07] MEDS ORDERED: nitroGLYCERIN 0.4mg SUBLingual tab SL PRN (06:10)
[2021-02-07] MEDS ORDERED: LORazepam 2 mg/ml vial IV PRN (06:10)
[2021-02-07] MEDS ORDERED: metoprolol tartrate 1mg/ml inj IV PRN (06:10)
[2021-02-07] MEDS ORDERED: regadenoson 0.4mg/5ml syringe IV PRN (06:10)
[2021-02-07] MEDS ORDERED: heparin 10,000 units/1 ML INJ IV PRN (06:30)
[2021-02-07] MEDS ORDERED: heparin 25,000 UNIT/250ml bag 250 ML IV SCH (06:30)
[2021-02-07] MEDS ORDERED: heparin 10,000 units/1 ML INJ IV ONE (06:30)
[2021-02-07] MEDS ORDERED: CefTRIAXone 2gm/D5W 50ml BAG 50 ML IV ONE (06:45)
[2021-02-07] MEDS: niCARDipine-NS 40mg/200ml IVPB IV SCH ×2 (07:55→14:18)
[2021-02-07] MEDS: K and/or MAG REPLACEMENT MC SCH ×2 (08:00→20:00)
[2021-02-07] MEDS ORDERED: hyDRALAzine 10mg tablet PO SCH (08:00)
[2021-02-07] MEDS: furosemide 40mg tablet PO SCH ×2 (09:11→23:02)
[2021-02-07] MEDS: atorvastatin 20mg tablet PO SCH (09:11)
[2021-02-07] MEDS: carVEDilol 12.5mg tablet PO SCH ×2 (09:11→23:02)
[2021-02-07] MEDS: HYDROcodone/acetaminophen 10/325mg tab PO PRN ×6 (09:12→16:51)
[2021-02-07] MEDS: cloNIDine 0.1 mg tablet PO SCH ×2 (09:12→23:02)
[2021-02-07] MEDS: metolazone 2.5mg tablet PO SCH (11:09)
[2021-02-07 11:36] LABS: MAGNESIUM 2.7 MG/DL (1.5-2.4); POTASSIUM 4.4 MMOL/L (3.5-5.1)
[2021-02-07 22:00] VITALS: BP 194/82
--- NOTE | 2021-02-08 04:51 | NUR ---
Patient in room PCU 3017. I have received report from Azalia ABURTO and had the opportunity to ask questions and assume patient care.
[2021-02-08] MEDS: morphine 2 MG/ML inj. syringe IV PRN ×3 (05:02→15:12)
[2021-02-08] MEDS: HYDROcodone/acetaminophen 10/325mg tab PO PRN ×3 (05:51→19:55)
[2021-02-08 06:00] VITALS: BP 192/85
--- NOTE | 2021-02-08 06:15 | NUR ---
Patient in room MED 314. I have received report from CRISELDA PIZANO, and had the opportunity to ask questions and assume patient care.
[2021-02-08] MEDS: furosemide 40mg tablet PO SCH ×2 (07:32→19:54)
[2021-02-08] MEDS: atorvastatin 20mg tablet PO SCH (07:32)
[2021-02-08] MEDS: carVEDilol 12.5mg tablet PO SCH ×2 (07:32→19:54)
[2021-02-08] MEDS: cloNIDine 0.1 mg tablet PO SCH ×2 (07:32→19:54)
[2021-02-08] MEDS: K and/or MAG REPLACEMENT MC SCH ×2 (08:00→20:00)
[2021-02-08] MEDS ORDERED: LIDOcaine 1% (10mg/ml) 2ml vial SQ ONE (08:00)
[2021-02-08] MEDS ORDERED: normal saline 1000ml 250 ML IV PRN (08:00)
[2021-02-08] MEDS ORDERED: heparin 1,000 units/ml 10ml inj IV ONE (08:00)
[2021-02-08] MEDS ORDERED: EPOETIN ALFA-EPBX 20,000 UNIT/ML 1 ML MDV IV ONE (08:00)
[2021-02-08] MEDS: metolazone 2.5mg tablet PO SCH (08:00)
[2021-02-08 08:45] VITALS: BP 162/70
[2021-02-08 09:27] LABS: BASOPHILS # (AUTO) 0.1 X10'3 (0-0.2); BASOPHILS % (AUTO) 1.7 % (0-1); EOSINOPHILS # (AUTO) 0.2 X10'3 (0-0.9); EOSINOPHILS % (AUTO) 5.7 % (0-6); HEMATOCRIT 25.1 % (35.0-45.0); HEMOGLOBIN 8.6 g/dl (12.0-16.0); LYMPHOCYTES # (AUTO) 0.8 X10'3 (1.1-4.8); LYMPHOCYTES % (AUTO) 19.8 % (21-51); MEAN CORPUSCULAR HEMOGLOBIN 35.1 PG (27.0-31.0); MEAN CORPUSCULAR HGB CONC 34.2 g/dL (33.0-36.5); MEAN CORPUSCULAR VOLUME 102.4 FL (78-98); MEAN PLATELET VOLUME 9.8 FL (7.4-10.4); MONOCYTES # (AUTO) 0.4 X10'3 (0-0.9); MONOCYTES % (AUTO) 8.4 % (2-12); NEUTROPHILS # (AUTO) 2.7 X10'3 (1.8-7.7); NEUTROPHILS % (AUTO) 64.4 % (42-75); PLATELET COUNT 177 X10'3 (140-440); RED BLOOD COUNT 2.45 X10'6 (4.20-5.60); RED CELL DISTRIBUTION WIDTH 15.5 % (11.5-14.5); WHITE BLOOD COUNT 4.3 X10'3 (4.5-11.0)
[2021-02-08] MEDS: normal saline 1000ml 1,000 ML IV SCH (09:27)
[2021-02-08 09:45] LABS: ALANINE AMINOTRANSFERASE 12 U/L (12-78); ALBUMIN 3.4 G/DL (3.4-5.0); ALBUMIN/GLOBULIN RATIO 0.9 (1.1-1.5); ALKALINE PHOSPHATASE 67 IU/L (46-116); ANION GAP 19 (8-16); ASPARTATE AMINO TRANSFERASE 22 U/L (10-37); BILIRUBIN,TOTAL 0.7 MG/DL (0.1-1.0); BLOOD UREA NITROGEN 68 MG/DL (7-18); BUN/CREATININE RATIO 4.7 (6.6-38.0); CALCIUM 7.8 MG/DL (8.5-10.1); CHLORIDE 97 MMOL/L (99-107); CREATININE 14.55 MG/DL (0.40-0.90); GLUCOSE 80 MG/DL (70-104); MAGNESIUM 2.7 MG/DL (1.5-2.4); PHOSPHORUS 8.3 MG/DL (2.3-4.5); POTASSIUM 4.6 MMOL/L (3.5-5.1); SODIUM 139 MMOL/L (135-145); TOTAL CARBON DIOXIDE 23.1 MMOL/L (24-32); eGFR 3 ML/MIN
[2021-02-08 11:00] VITALS: BP 139/64
--- NOTE | 2021-02-08 14:19 | NUR ---
PAGE SENT PAGER ID: [phone] MESSAGE: 314, HEIKE OCONNOR, NO URINE OUTPUT THIS SHIFT. BP 136/60. HR 58. PT CONTINUES TO C/O PAIN, BUT MANAGES TO SLEEP. HOLD ZAROLOXOLYN? THANK YOU, HERMES [phone].
[2021-02-08 15:00] VITALS: BP 147/71
--- NOTE | 2021-02-08 15:26 | NUR ---
BLADDER SCANNED PT 81 ML. PT DENIES URGENCY TO URINATE.
[2021-02-08] MEDS: nicotine 7mg patch - 24hr TD SCH (15:39)
--- NOTE | 2021-02-08 15:43 | NUR ---
PT RECEIVED LASIX 80MG, HELD MD DA AWARE.
[2021-02-08 18:00] VITALS: BP 195/87
--- NOTE | 2021-02-08 18:37 | NUR ---
Patient in room MED 314. I have received report from Yue ABURTO and had the opportunity to ask questions and assume patient care.
--- NOTE | 2021-02-08 18:43 | NUR ---
Problems reprioritized. Patient report given, questions answered & plan of care reviewed with CRISELDA MALONE.
--- NOTE | 2021-02-08 19:00 | NUR ---
Bruit/thrill noted to L arm fistula. HD currently running per RN.
[2021-02-08 22:00] VITALS: BP 183/74
[2021-02-08] MEDS: methylPREDNISolone sod succ/PF 40mg inj. IV SCH (23:58)
[2021-02-09 02:00] VITALS: BP 188/76
[2021-02-09] MEDS: temazepam 15mg capsule PO PRN ×2 (02:02→20:51)
[2021-02-09] MEDS: ondansetron/PF 4mg/2ml inj IV PRN ×2 (02:02→18:48)
[2021-02-09] MEDS: LORazepam 1 MG tablet PO PRN ×2 (02:03→20:51)
[2021-02-09] MEDS: hyDRALAzine 10mg tablet PO PRN ×3 (02:03→20:35)
[2021-02-09] MEDS: morphine 2 MG/ML inj. syringe IV PRN ×4 (04:04→19:06)
[2021-02-09 06:00] VITALS: BP 188/75
[2021-02-09 06:37] LABS: BASOPHILS % (AUTO) 1.1 % (0-1); EOSINOPHILS # (AUTO) 0.2 X10'3 (0-0.9); EOSINOPHILS % (AUTO) 3.8 % (0-6); HEMATOCRIT 24.9 % (35.0-45.0); HEMOGLOBIN 8.6 g/dl (12.0-16.0); LYMPHOCYTES # (AUTO) 0.7 X10'3 (1.1-4.8); LYMPHOCYTES % (AUTO) 18.3 % (21-51); MEAN CORPUSCULAR HEMOGLOBIN 35.2 PG (27.0-31.0); MEAN CORPUSCULAR HGB CONC 34.7 g/dL (33.0-36.5); MEAN CORPUSCULAR VOLUME 101.4 FL (78-98); MEAN PLATELET VOLUME 9.5 FL (7.4-10.4); MONOCYTES # (AUTO) 0.4 X10'3 (0-0.9); MONOCYTES % (AUTO) 9.4 % (2-12); NEUTROPHILS # (AUTO) 2.7 X10'3 (1.8-7.7); NEUTROPHILS % (AUTO) 67.4 % (42-75); PLATELET COUNT 166 X10'3 (140-440); RED BLOOD COUNT 2.46 X10'6 (4.20-5.60); RED CELL DISTRIBUTION WIDTH 15.1 % (11.5-14.5)
[2021-02-09 06:49] LABS: ALANINE AMINOTRANSFERASE 14 U/L (12-78); ALBUMIN 3.3 G/DL (3.4-5.0); ALBUMIN/GLOBULIN RATIO 0.9 (1.1-1.5); ALKALINE PHOSPHATASE 62 IU/L (46-116); ANION GAP 9 (8-16); ASPARTATE AMINO TRANSFERASE 20 U/L (10-37); BILIRUBIN,TOTAL 0.7 MG/DL (0.1-1.0); BLOOD UREA NITROGEN 26 MG/DL (7-18); CHLORIDE 99 MMOL/L (99-107); GLUCOSE 89 MG/DL (70-104); POTASSIUM 3.9 MMOL/L (3.5-5.1); SODIUM 137 MMOL/L (135-145); TOTAL CARBON DIOXIDE 28.9 MMOL/L (24-32); TOTAL PROTEIN 7.1 G/DL (6.4-8.2)
[2021-02-09 06:57] LABS: BUN/CREATININE RATIO 3.6 (6.6-38.0); CREATININE 7.29 MG/DL (0.40-0.90); eGFR 6 ML/MIN
[2021-02-09] MEDS: K and/or MAG REPLACEMENT MC SCH ×2 (08:00→20:00)
--- NOTE | 2021-02-09 08:00 | NUR ---
Problems reprioritized. Patient report given, questions answered & plan of care reviewed with Sabi ABURTO.
[2021-02-09] MEDS: carVEDilol 12.5mg tablet PO SCH ×2 (09:14→18:43)
[2021-02-09] MEDS: methylPREDNISolone sod succ/PF 40mg inj. IV SCH ×2 (09:14→19:10)
[2021-02-09] MEDS: cloNIDine 0.1 mg tablet PO SCH ×2 (09:14→18:43)
[2021-02-09] MEDS: furosemide 40mg tablet PO SCH ×2 (09:14→19:10)
[2021-02-09] MEDS: atorvastatin 20mg tablet PO SCH (09:14)
[2021-02-09] MEDS: metolazone 2.5mg tablet PO SCH (09:15)
[2021-02-09] MEDS: nicotine 7mg patch - 24hr TD SCH (09:19)
[2021-02-09 09:52] LABS: HBSAG SCREEN Negative (Negative)
[2021-02-09 10:00] VITALS: BP 165/65
[2021-02-09] MEDS ORDERED: CefTRIAXone/D5W-Rocephin 1gm 50 ML IV ONE (11:40)
[2021-02-09] MEDS ORDERED: ipratropium/albuterol 3ml nebule NEB PRN (11:40)
[2021-02-09 15:00] VITALS: BP 176/74
[2021-02-09] MEDS: HYDROcodone/acetaminophen 10/325mg tab PO PRN ×2 (16:11→20:36)
[2021-02-09] MEDS: ipratropium/albuterol 3ml nebule NEB SCH ×2 (16:13→20:38)
[2021-02-09 18:00] VITALS: BP 187/86
--- NOTE | 2021-02-09 18:23 | NUR ---
Patient in room MED 314. I have received report from MIREYA ABURTO and had the opportunity to ask questions and assume patient care.
[2021-02-09 22:00] VITALS: BP 200/87
--- NOTE | 2021-02-09 22:27 | NUR ---
2013 Heike Eisenberg-BP 200/87-aleready gave hydralazine PO, 20 mg, clonidine 0.1-blood pressure extremely high-no thing left for prn hypertension-please call Catrachita rader [phone] Addendum: 02/09/21 at 2325 by Catrachita Mckay RN NEW MEDS ORDERED BY KERLINE AVENDAÑO BP 167/72 Addendum: 02/10/21 at 0230 by Catrachita Mckay RN 314A-HEIKE EISENBERG-BP 174/79-GAVE CLONIDINE 0.2MG AND HYDRALAZINE 5 MG PER ORDERS-CAN'T GIVE EITHER MED NOW-PLEASE CALL CATRACHITA [address], THX
[2021-02-09] MEDS ORDERED: cloNIDine 0.1 mg tablet PO SCH (22:40)
[2021-02-09] MEDS: hydrALAZINE 20mg/ml inj. IV SCH (23:25)
[2021-02-10] VITALS (7 sets, daily range): BP systolic 125–180; BP diastolic 60–79
[2021-02-10] MEDS: hydrALAZINE 20mg/ml inj. IV SCH (02:00)
[2021-02-10] MEDS: ipratropium/albuterol 3ml nebule NEB SCH ×4 (02:53→22:10)
[2021-02-10] MEDS: niCARDipine-NS 40mg/200ml IVPB 200 ML IV SCH ×2 (03:28→04:18)
--- NOTE | 2021-02-10 06:00 | NUR ---
PER PROTOCOL, WITH DR. AVENDAÑO'S DIRECTIVE, CHANGED CARDENE RATE TO 3 MGHR, OR 15MLS/HR PER PROTOCOL. PATIENTS CURRENT HR IS 70, BP 138/70-KEEP CARDENE RUNNING TO MAINTAIN SBP>160. FANNIE ABURTO
--- NOTE | 2021-02-10 06:22 | NUR ---
314-HEIKE OCONNOR-DID YOU WANT THE HYDRALAZINE YOU ORDERED PRN OR SCHEDULED? DO YOU WANT CLONIDINE SCHEDULED WHILE ON NICARDENE GTT? PLEASE MAYANK ACCE [phone] TO CLARIFY, THANKS-CATRACHITA
--- NOTE | 2021-02-10 06:28 | NUR ---
Patient in room MED 314. I have received report from Stephanie ABURTO and had the opportunity to ask questions and assume patient care.
--- NOTE | 2021-02-10 06:42 | NUR ---
Patient in room MED 314. I have received report from DIAMOND ABURTO and had the opportunity to ask questions and assume patient care.
[2021-02-10 07:01] LABS: BASOPHILS % (AUTO) 0.5 % (0-1); EOSINOPHILS % (AUTO) 0.2 % (0-6); HEMATOCRIT 23.9 % (35.0-45.0); HEMOGLOBIN 8.2 g/dl (12.0-16.0); LYMPHOCYTES # (AUTO) 0.5 X10'3 (1.1-4.8); LYMPHOCYTES % (AUTO) 12.4 % (21-51); MEAN CORPUSCULAR HEMOGLOBIN 34.8 PG (27.0-31.0); MEAN CORPUSCULAR HGB CONC 34.3 g/dL (33.0-36.5); MEAN CORPUSCULAR VOLUME 101.4 FL (78-98); MEAN PLATELET VOLUME 9.6 FL (7.4-10.4); MONOCYTES # (AUTO) 0.4 X10'3 (0-0.9); MONOCYTES % (AUTO) 10.3 % (2-12); NEUTROPHILS # (AUTO) 3.1 X10'3 (1.8-7.7); NEUTROPHILS % (AUTO) 76.6 % (42-75); PLATELET COUNT 177 X10'3 (140-440); RED BLOOD COUNT 2.35 X10'6 (4.20-5.60); RED CELL DISTRIBUTION WIDTH 15.1 % (11.5-14.5); WHITE BLOOD COUNT 4.1 X10'3 (4.5-11.0)
[2021-02-10 07:12] LABS: ALANINE AMINOTRANSFERASE 16 U/L (12-78); ALBUMIN 2.9 G/DL (3.4-5.0); ALBUMIN/GLOBULIN RATIO 0.8 (1.1-1.5); ALKALINE PHOSPHATASE 56 IU/L (46-116); ANION GAP 7 (8-16); ASPARTATE AMINO TRANSFERASE 14 U/L (10-37); BILIRUBIN,TOTAL 0.5 MG/DL (0.1-1.0); BLOOD UREA NITROGEN 41 MG/DL (7-18); BUN/CREATININE RATIO 4.5 (6.6-38.0); CALCIUM 8.7 MG/DL (8.5-10.1); CHLORIDE 99 MMOL/L (99-107); CREATININE 9.19 MG/DL (0.40-0.90); GLUCOSE 124 MG/DL (70-104); POTASSIUM 4.7 MMOL/L (3.5-5.1); SODIUM 135 MMOL/L (135-145); TOTAL CARBON DIOXIDE 28.8 MMOL/L (24-32); TOTAL PROTEIN 6.4 G/DL (6.4-8.2); eGFR 4 ML/MIN
[2021-02-10] MEDS: K and/or MAG REPLACEMENT MC SCH ×2 (08:00→20:00)
[2021-02-10] MEDS: CefTRIAXone/D5W-Rocephin 1gm 50 ML IV SCH (08:24)
[2021-02-10] MEDS: cloNIDine 0.1 mg tablet PO SCH ×3 (08:24→20:22)
[2021-02-10] MEDS: carVEDilol 12.5mg tablet PO SCH ×2 (08:24→20:22)
[2021-02-10] MEDS: methylPREDNISolone sod succ/PF 40mg inj. IV SCH ×2 (08:24→20:18)
[2021-02-10] MEDS: atorvastatin 20mg tablet PO SCH (08:25)
[2021-02-10] MEDS: furosemide 40mg tablet PO SCH ×2 (08:25→20:21)
[2021-02-10] MEDS: metolazone 2.5mg tablet PO SCH (08:25)
[2021-02-10] MEDS: nicotine 7mg patch - 24hr TD SCH (08:25)
[2021-02-10] MEDS: HYDROcodone/acetaminophen 10/325mg tab PO PRN ×3 (08:36→20:21)
[2021-02-10] MEDS: ondansetron/PF 4mg/2ml inj IV PRN ×2 (08:43→20:30)
[2021-02-10] MEDS: hydrALAZINE 25 MG tablet PO SCH ×2 (13:34→20:20)
--- NOTE | 2021-02-10 18:08 | NUR ---
Problems reprioritized. Patient report given, questions answered & plan of care reviewed with Rosario ABURTO. Patient resting in bed and in no acute distress.
[2021-02-10] MEDS: temazepam 15mg capsule PO PRN (20:22)
[2021-02-11] MEDS: hydrALAZINE 20mg/ml inj. IV PRN ×2 (00:20→16:44)
[2021-02-11 02:00] VITALS: BP 210/89
[2021-02-11] MEDS: morphine 2 MG/ML inj. syringe IV PRN ×2 (03:28→16:25)
[2021-02-11] MEDS: ipratropium/albuterol 3ml nebule NEB SCH ×4 (03:41→20:46)
--- NOTE | 2021-02-11 03:59 | NUR ---
Dr Bhat notified of pt's elevated BP (204/90); OK to start Medina roman.
[2021-02-11] MEDS ORDERED: diltiazem-NS 100mg/100ml 100 ML IV SCH (04:05)
[2021-02-11] MEDS ORDERED: niCARDipine-NS 40mg/200ml IVPB 200 ML IV SCH (04:05)
--- NOTE | 2021-02-11 04:54 | NUR ---
cardizem drip starting and infusing well. Will reassess pt for any signs of low BP.
[2021-02-11] MEDS: normal saline 1000ml 1,000 ML IV SCH (06:05)
[2021-02-11 06:40] LABS: BASOPHILS % (AUTO) 0.1 % (0-1); EOSINOPHILS % (AUTO) 0 % (0-6); HEMATOCRIT 26.3 % (35.0-45.0); HEMOGLOBIN 8.9 g/dl (12.0-16.0); LYMPHOCYTES # (AUTO) 0.4 X10'3 (1.1-4.8); LYMPHOCYTES % (AUTO) 5.6 % (21-51); MEAN CORPUSCULAR HEMOGLOBIN 34.7 PG (27.0-31.0); MEAN CORPUSCULAR HGB CONC 33.9 g/dL (33.0-36.5); MEAN CORPUSCULAR VOLUME 102.4 FL (78-98); MEAN PLATELET VOLUME 9.8 FL (7.4-10.4); MONOCYTES # (AUTO) 0.2 X10'3 (0-0.9); MONOCYTES % (AUTO) 3.1 % (2-12); NEUTROPHILS # (AUTO) 5.9 X10'3 (1.8-7.7); NEUTROPHILS % (AUTO) 91.2 % (42-75); PLATELET COUNT 195 X10'3 (140-440); RED BLOOD COUNT 2.56 X10'6 (4.20-5.60); RED CELL DISTRIBUTION WIDTH 15.6 % (11.5-14.5); WHITE BLOOD COUNT 6.5 X10'3 (4.5-11.0)
[2021-02-11 06:50] LABS: ALANINE AMINOTRANSFERASE 17 U/L (12-78); ALBUMIN 3.3 G/DL (3.4-5.0); ALBUMIN/GLOBULIN RATIO 0.9 (1.1-1.5); ALKALINE PHOSPHATASE 55 IU/L (46-116); ANION GAP 12 (8-16); ASPARTATE AMINO TRANSFERASE 15 U/L (10-37); BILIRUBIN,TOTAL 0.5 MG/DL (0.1-1.0); BLOOD UREA NITROGEN 58 MG/DL (7-18); BUN/CREATININE RATIO 5.8 (6.6-38.0); CALCIUM 9.1 MG/DL (8.5-10.1); CHLORIDE 93 MMOL/L (99-107); CREATININE 10.08 MG/DL (0.40-0.90); GLUCOSE 131 MG/DL (70-104); POTASSIUM 5.1 MMOL/L (3.5-5.1); SODIUM 129 MMOL/L (135-145); TOTAL CARBON DIOXIDE 24.5 MMOL/L (24-32); eGFR 4 ML/MIN
--- NOTE | 2021-02-11 06:53 | NUR ---
Patient in room MED 314. I have received report from CRISELDA RODRIGUEZ, and had the opportunity to ask questions and assume patient care.
--- NOTE | 2021-02-11 06:53 | NUR ---
PAGE SENT PAGER ID: [phone] MESSAGE: 314, HEIKE OCONNOR, PT ON CARDIZEM GTT - 5MG/HR. PT'S BP 197/91. THANK YOU, HERMES. X [phone]
[2021-02-11] MEDS: cloNIDine 0.1 mg tablet PO SCH ×3 (07:26→20:15)
[2021-02-11] MEDS: furosemide 40mg tablet PO SCH ×2 (07:26→20:15)
[2021-02-11] MEDS: carVEDilol 12.5mg tablet PO SCH ×2 (07:26→20:17)
[2021-02-11] MEDS: metolazone 2.5mg tablet PO SCH (07:27)
[2021-02-11] MEDS: hydrALAZINE 25 MG tablet PO SCH ×3 (07:27→20:16)
[2021-02-11] MEDS: CefTRIAXone/D5W-Rocephin 1gm 50 ML IV SCH (07:35)
[2021-02-11] MEDS: methylPREDNISolone sod succ/PF 40mg inj. IV SCH ×2 (07:39→20:17)
[2021-02-11] MEDS: atorvastatin 20mg tablet PO SCH (07:40)
[2021-02-11] MEDS: nicotine 7mg patch - 24hr TD SCH (07:41)
[2021-02-11] MEDS: K and/or MAG REPLACEMENT MC SCH ×2 (08:00→20:00)
[2021-02-11] MEDS ORDERED: cloNIDine 0.1 mg tablet PO ONE (09:20)
[2021-02-11 10:00] VITALS: BP 196/87
[2021-02-11] MEDS: HYDROcodone/acetaminophen 10/325mg tab PO PRN ×2 (10:39→20:16)
--- NOTE | 2021-02-11 13:49 | NUR ---
RELIEVING RN FOR LUNCH, PT IS SLEEPING EASILY AROUSEABLE, RAMONA PO MED WELL, BP 167/71, HR 67
[2021-02-11 14:00] VITALS: BP 159/70
--- NOTE | 2021-02-11 14:17 | NUR ---
Initial: Pt admitted w/ chest pains and hypertensive emergency; currently ESRD on HD per EMR. Pt currently on Renal diet w/ moderate PO intake, avg 69% x 10 meals partially meeting needs. Pt may benefit from double protein BIDLD to help meet increased protein needs, d/w dietary. [facility] 02/08. Will continue to monitor and make recommendations as appropriate. Recs: 1. Continue Renal diet as tolerated 2. Double Protein BIDLD 3. Bowel care per rx 4. Scaled wts w/ dialysis Addendum: 02/11/21 at [address] Amended: Links added.
[2021-02-11 18:00] VITALS: BP 174/84
--- NOTE | 2021-02-11 18:30 | NUR ---
Pt is resting in bed AAOx4 , voiced no complaints at this time. HL to left forearm noted; no IV fluid infusing. Plan of care verbalized to pt. about her medications.
--- NOTE | 2021-02-11 18:54 | NUR ---
Problems reprioritized. Patient report given, questions answered & plan of care reviewed with CRISELDA RODRIGUEZ.
[2021-02-11] MEDS: lactobacillus rhamnosus 10,000 MMU CELLS/CAPSULE PO SCH (20:14)
[2021-02-11] MEDS: temazepam 15mg capsule PO PRN (20:16)
[2021-02-11 22:00] VITALS: BP 197/89
[2021-02-11] MEDS ORDERED: mineral oil 133ml enema RC PRN (22:00)
[2021-02-11] MEDS ORDERED: lactulose 20gm/30ml cup PO ONE (22:00)
[2021-02-11] MEDS ORDERED: magnesium citrate 296ml oral solution PO ONE (22:00)
--- NOTE | 2021-02-12 01:20 | NUR ---
Pt reported not having a BM since 02/08/21 ; Dr Castano notified and order given. Will medicate pt when med available.
[2021-02-12 02:00] VITALS: BP 193/83
[2021-02-12] MEDS: ipratropium/albuterol 3ml nebule NEB SCH ×4 (03:23→21:11)
[2021-02-12] MEDS: morphine 2 MG/ML inj. syringe IV PRN ×3 (04:55→20:32)
[2021-02-12] MEDS: hydrALAZINE 20mg/ml inj. IV PRN (05:00)
[2021-02-12] MEDS: polyethylene glycol 3350 17gm powd pack PO SCH ×2 (05:00→17:40)
[2021-02-12 05:50] VITALS: BP 181/87
[2021-02-12 06:00] VITALS: BP 179/90
[2021-02-12 06:00] LABS: BASOPHILS % (AUTO) 0.1 % (0-1); EOSINOPHILS % (AUTO) 0.1 % (0-6); HEMATOCRIT 28.3 % (35.0-45.0); HEMOGLOBIN 9.8 g/dl (12.0-16.0); LYMPHOCYTES # (AUTO) 0.3 X10'3 (1.1-4.8); LYMPHOCYTES % (AUTO) 5.9 % (21-51); MEAN CORPUSCULAR HEMOGLOBIN 35.7 PG (27.0-31.0); MEAN CORPUSCULAR HGB CONC 34.6 g/dL (33.0-36.5); MEAN CORPUSCULAR VOLUME 103.3 FL (78-98); MEAN PLATELET VOLUME 9.7 FL (7.4-10.4); MONOCYTES # (AUTO) 0.3 X10'3 (0-0.9); MONOCYTES % (AUTO) 4.7 % (2-12); NEUTROPHILS # (AUTO) 4.8 X10'3 (1.8-7.7); NEUTROPHILS % (AUTO) 89.2 % (42-75); PLATELET COUNT 212 X10'3 (140-440); RED BLOOD COUNT 2.74 X10'6 (4.20-5.60); RED CELL DISTRIBUTION WIDTH 15.9 % (11.5-14.5); WHITE BLOOD COUNT 5.3 X10'3 (4.5-11.0)
--- NOTE | 2021-02-12 06:00 | NUR ---
Pt reported no BM, encouraged pt to take enema. Pt reported passing lot of gas. In coming nurse notified to follow up.
[2021-02-12 06:12] LABS: ALANINE AMINOTRANSFERASE 19 U/L (12-78); ALBUMIN 3.6 G/DL (3.4-5.0); ALBUMIN/GLOBULIN RATIO 0.9 (1.1-1.5); ALKALINE PHOSPHATASE 62 IU/L (46-116); ANION GAP 14 (8-16); ASPARTATE AMINO TRANSFERASE 15 U/L (10-37); BILIRUBIN,TOTAL 0.6 MG/DL (0.1-1.0); BLOOD UREA NITROGEN 74 MG/DL (7-18); BUN/CREATININE RATIO 6.5 (6.6-38.0); CALCIUM 8.6 MG/DL (8.5-10.1); CHLORIDE 90 MMOL/L (99-107); CREATININE 11.37 MG/DL (0.40-0.90); GLUCOSE 135 MG/DL (70-104); POTASSIUM 5.1 MMOL/L (3.5-5.1); SODIUM 128 MMOL/L (135-145); TOTAL CARBON DIOXIDE 24.4 MMOL/L (24-32); TOTAL PROTEIN 7.5 G/DL (6.4-8.2); eGFR 3 ML/MIN
--- NOTE | 2021-02-12 06:40 | NUR ---
Patient in room MED 307. I have received report from Rosario ABURTO and had the opportunity to ask questions and assume patient care. Pt. safe and stable at time of change of shift.
[2021-02-12] MEDS: K and/or MAG REPLACEMENT MC SCH ×2 (08:00→20:00)
[2021-02-12] MEDS ORDERED: EPOETIN ALFA-EPBX 20,000 UNIT/ML 1 ML MDV IV ONE (08:00)
[2021-02-12] MEDS ORDERED: LIDOcaine 1% (10mg/ml) 2ml vial SQ ONE (08:00)
[2021-02-12] MEDS ORDERED: heparin 1,000 units/ml 10ml inj IV ONE (08:00)
[2021-02-12] MEDS ORDERED: normal saline 1000ml 250 ML IV PRN (08:00)
[2021-02-12] MEDS: atorvastatin 20mg tablet PO SCH (08:18)
[2021-02-12] MEDS: methylPREDNISolone sod succ/PF 40mg inj. IV SCH ×2 (08:20→20:30)
[2021-02-12] MEDS: cloNIDine 0.1 mg tablet PO SCH ×3 (08:20→20:38)
[2021-02-12] MEDS ORDERED: HYDR-3965 PO (08:20)
[2021-02-12] MEDS: HYDROcodone/acetaminophen 10/325mg tab PO PRN ×2 (08:20→14:40)
[2021-02-12] MEDS ORDERED: CLON0.1T2 PO (08:20)
[2021-02-12] MEDS ORDERED: HYDR-4069 PO (08:20)
[2021-02-12] MEDS: hydrALAZINE 25 MG tablet PO SCH ×3 (08:21→20:38)
[2021-02-12] MEDS: lactobacillus rhamnosus 10,000 MMU CELLS/CAPSULE PO SCH ×2 (08:21→20:31)
[2021-02-12] MEDS: furosemide 40mg tablet PO SCH ×2 (08:22→20:31)
[2021-02-12] MEDS: carVEDilol 12.5mg tablet PO SCH (08:22)
[2021-02-12] MEDS: nicotine 7mg patch - 24hr TD SCH (08:34)
[2021-02-12] MEDS: metolazone 2.5mg tablet PO SCH (08:34)
[2021-02-12] MEDS: CefTRIAXone/D5W-Rocephin 1gm 50 ML IV SCH (08:34)
--- NOTE | 2021-02-12 10:26 | NUR ---
Orders to change patient's clonidine from 0.2mg to 0.3mg put in per Dr. Tobias.
[2021-02-12] MEDS: labetalol 100mg tablet PO SCH ×2 (10:35→20:31)
[2021-02-12 11:00] VITALS: BP 166/76
[2021-02-12 15:00] VITALS: BP 165/72
--- NOTE | 2021-02-12 18:33 | NUR ---
Problems reprioritized. Patient report given to Erasmo ABURTO, questions answered & plan of care reviewed with Dax ABURTO.
[2021-02-12] MEDS ORDERED: polyethylene glycol 3350 17gm powd pack PO SCH (21:00)
[2021-02-12 22:00] VITALS: BP 166/74
[2021-02-13 02:00] VITALS: BP 175/82
[2021-02-13] MEDS: ipratropium/albuterol 3ml nebule NEB SCH ×4 (03:23→20:51)
[2021-02-13] MEDS: morphine 2 MG/ML inj. syringe IV PRN ×2 (05:20→15:45)
[2021-02-13 07:00] VITALS: BP 163/70
[2021-02-13] MEDS: hydrALAZINE 25 MG tablet PO SCH ×3 (07:37→20:36)
[2021-02-13] MEDS: lactobacillus rhamnosus 10,000 MMU CELLS/CAPSULE PO SCH ×2 (07:38→20:35)
[2021-02-13] MEDS: cloNIDine 0.1 mg tablet PO SCH ×3 (07:38→16:00)
[2021-02-13] MEDS: HYDROcodone/acetaminophen 10/325mg tab PO PRN ×2 (07:39→18:50)
[2021-02-13] MEDS: methylPREDNISolone sod succ/PF 40mg inj. IV SCH ×2 (07:39→20:34)
[2021-02-13] MEDS: furosemide 40mg tablet PO SCH ×2 (07:39→20:35)
[2021-02-13] MEDS: metolazone 2.5mg tablet PO SCH (08:00)
[2021-02-13] MEDS: nicotine 7mg patch - 24hr TD SCH (08:00)
[2021-02-13] MEDS ORDERED: labetalol 100mg tablet PO SCH (08:00)
[2021-02-13] MEDS: atorvastatin 20mg tablet PO SCH (08:00)
[2021-02-13 11:00] VITALS: BP 150/68
[2021-02-13] MEDS: NIFEdipine XL 30mg tablet PO SCH (11:20)
[2021-02-13 15:00] VITALS: BP 163/70
[2021-02-13] MEDS: labetalol 100mg tablet PO SCH (16:00)
[2021-02-13 18:00] VITALS: BP_SYST 158; BP_DIAS 4; BP_DIAS 74
--- NOTE | 2021-02-13 18:30 | NUR ---
Patient in room MED 314. I have received report from CRISELDA Dukes and had the opportunity to ask questions and assume patient care with CRISELDA Contreras. Addendum: 02/13/21 at 2242 by Tiki Pascual RN Amended: Links added.
--- NOTE | 2021-02-13 18:47 | NUR ---
Patient in room MED 314. I have received report from CRISELDA Beckett and had the opportunity to ask questions and assume patient care.
[2021-02-13] MEDS: K and/or MAG REPLACEMENT MC SCH (20:00)
[2021-02-13] MEDS: polyethylene glycol 3350 17gm powd pack PO SCH (20:35)
[2021-02-13 22:00] VITALS: BP 141/64
[2021-02-14] MEDS: labetalol 100mg tablet PO SCH ×2 (00:17→08:22)
[2021-02-14] MEDS: cloNIDine 0.1 mg tablet PO SCH ×2 (00:17→08:23)
[2021-02-14] MEDS: HYDROcodone/acetaminophen 10/325mg tab PO PRN ×2 (00:19→12:34)
[2021-02-14 02:00] VITALS: BP 141/61
[2021-02-14] MEDS: ipratropium/albuterol 3ml nebule NEB SCH ×3 (04:01→15:00)
--- NOTE | 2021-02-14 04:10 | NUR ---
received pt from er via w/c oriented to room and routine. amb ad madelaine to bathroom. Addendum: 02/14/21 at 0415 by Diane Zimmer RN Amended: Links added.
--- NOTE | 2021-02-14 05:47 | NUR ---
I have reviewed and agree with all interventions, assessments performed and documented by CRISELDA MATHEW. Addendum: 02/14/21 at 0547 by Tiki Pascual RN Amended: Links added.
[2021-02-14 06:00] VITALS: BP 149/69
--- NOTE | 2021-02-14 06:17 | NUR ---
Problems reprioritized. Patient report given, questions answered & plan of care reviewed with CRISELDA Villafana.
--- NOTE | 2021-02-14 06:29 | NUR ---
Patient in room MED 314. I have received report from CRISELDA Contreras and had the opportunity to ask questions and assume patient care.
[2021-02-14] MEDS ORDERED: heparin 1,000unit/ml 10ml vial 10 ML IV ONE (08:00)
[2021-02-14] MEDS ORDERED: heparin 1,000 units/ml 10ml inj HE ONE ×2 (08:00)
[2021-02-14] MEDS ORDERED: albumin (human) 25% 100ml IV 100 ML IV PRN (08:00)
[2021-02-14] MEDS ORDERED: heparin 1,000 units/ml 10ml inj IV ONE (08:00)
[2021-02-14] MEDS ORDERED: EPOETIN ALFA-EPBX 20,000 UNIT/ML 1 ML MDV IV ONE (08:00)
[2021-02-14] MEDS: atorvastatin 20mg tablet PO SCH (08:21)
[2021-02-14] MEDS: NIFEdipine XL 30mg tablet PO SCH (08:22)
[2021-02-14] MEDS: lactobacillus rhamnosus 10,000 MMU CELLS/CAPSULE PO SCH (08:22)
[2021-02-14] MEDS: metolazone 2.5mg tablet PO SCH (08:22)
[2021-02-14] MEDS: hydrALAZINE 25 MG tablet PO SCH (08:22)
[2021-02-14] MEDS: nicotine 7mg patch - 24hr TD SCH (08:22)
[2021-02-14] MEDS: methylPREDNISolone sod succ/PF 40mg inj. IV SCH (08:22)
[2021-02-14] MEDS: furosemide 40mg tablet PO SCH (08:23)
[2021-02-14] MEDS ORDERED: NIFE30TA95 PO (08:49)
[2021-02-14] MEDS ORDERED: CLON0.1T2 PO (08:49)
[2021-02-14] MEDS ORDERED: LABE100T5 PO (08:49)
--- NOTE | 2021-02-14 09:11 | NUR ---
Reassessment: Pt currently on Renal diet and double protein BIDLD w/ improved PO intake, mostly 100% of meals since last RD assessment meeting needs at this time. [facility] 02/12 receiving routine colace. Last HD noted 02/12 w/ 3L out. No further nutrition interventions implemented at this time, will continue to monitor. Recs: 1. Continue Renal diet as tolerated 2. Double Protein BIDLD 3. Bowel care per rx 4. Scaled wts w/ dialysis Addendum: 02/14/21 at [address] Amended: Links added.
[2021-02-14 10:00] VITALS: BP 123/63
[2021-02-14] MEDS ORDERED: LIDOcaine 1% (10mg/ml) 2ml vial SQ ONE (10:20)
[2021-02-14 15:00] VITALS: BP 128/51
--- NOTE | 2021-02-14 16:00 | NUR ---
Pt discharged to home, with all belongings, in private vehicle, accompanied by daughter. Discharge instructions and medications reviewed. New prescriptions e-scripted to [facility] on [address]. Pt provided with new patient packet for [facility] with instructions to fill out and return MARISEL in order to get an appointment within the next 7 days. Pt instructed to check her blood pressures daily at home, and to return to ED if her symptoms return. She was also instructed to continue outpatient HD as scheduled. Pt stated understanding and willingness to comply with all discharge instructions. IV DC'd, cannula intact. [facility].
== END 2021-02-14 15:53 | disposition home or self-care (01) | DRG 190 ==
LOC: ER 22:35 → ED HOLD 02-07 06:08 → PCU 3S 02-07 19:22 → MED 3N 02-08 06:00
PROVIDERS: ADMIT Internal Medicine; ATTEND Internal Medicine
PROC: B32T1ZZ Computerized Tomography (CT Scan) of Left Pulmonary Artery using Low Osmolar Contrast (ICD-10-PCS; 2021-02-07)
PROC: B3201ZZ Computerized Tomography (CT Scan) of Thoracic Aorta using Low Osmolar Contrast (ICD-10-PCS; 2021-02-07)
PROC: B32S1ZZ Computerized Tomography (CT Scan) of Right Pulmonary Artery using Low Osmolar Contrast (ICD-10-PCS; 2021-02-07)
PROC: B4201ZZ Computerized Tomography (CT Scan) of Abdominal Aorta using Low Osmolar Contrast (ICD-10-PCS; 2021-02-07)
PROC: B4241ZZ Computerized Tomography (CT Scan) of Superior Mesenteric Artery using Low Osmolar Contrast (ICD-10-PCS; 2021-02-07)
PROC: B4281ZZ Computerized Tomography (CT Scan) of Bilateral Renal Arteries using Low Osmolar Contrast (ICD-10-PCS; 2021-02-07)
PROC: B42C1ZZ Computerized Tomography (CT Scan) of Pelvic Arteries using Low Osmolar Contrast (ICD-10-PCS; 2021-02-07)
PROC: B42H1ZZ Computerized Tomography (CT Scan) of Bilateral Lower Extremity Arteries using Low Osmolar Contrast (ICD-10-PCS; 2021-02-07)
PROC: B4211ZZ Computerized Tomography (CT Scan) of Celiac Artery using Low Osmolar Contrast (ICD-10-PCS; 2021-02-07)
PROC: 5A1D70Z Performance of Urinary Filtration, Intermittent, Less than 6 Hours Per Day (ICD-10-PCS; 2021-02-08)
PROC: 5A1D70Z Performance of Urinary Filtration, Intermittent, Less than 6 Hours Per Day (ICD-10-PCS; principal; 2021-02-12)
PROC: 5A1D70Z Performance of Urinary Filtration, Intermittent, Less than 6 Hours Per Day (ICD-10-PCS; 2021-02-14)
DX: I21.4 Non-ST elevation (NSTEMI) myocardial infarction (principal); I13.2 Hypertensive heart and chronic kidney disease with heart failure and with stage 5 chronic kidney disease, or end stage renal disease; N18.6 End stage renal disease; D63.8 Anemia in other chronic diseases classified elsewhere; E11.22 Type 2 diabetes mellitus with diabetic chronic kidney disease; I16.0 Hypertensive urgency; I25.119 Atherosclerotic heart disease of native coronary artery with unspecified angina pectoris; E03.9 Hypothyroidism, unspecified; I08.0 Rheumatic disorders of both mitral and aortic valves; M54.9 Dorsalgia, unspecified; E11.65 Type 2 diabetes mellitus with hyperglycemia; E27.9 Disorder of adrenal gland, unspecified; I71.2 Thoracic aortic aneurysm, without rupture; I50.9 Heart failure, unspecified; F17.210 Nicotine dependence, cigarettes, uncomplicated; E78.5 Hyperlipidemia, unspecified; M47.814 Spondylosis without myelopathy or radiculopathy, thoracic region; G89.29 Other chronic pain; Z99.2 Dependence on renal dialysis; Z95.1 Presence of aortocoronary bypass graft; Z82.49 Family history of ischemic heart disease and other diseases of the circulatory system; Z86.79 Personal history of other diseases of the circulatory system; Z98.61 Coronary angioplasty status; Z88.8 Allergy status to other drugs, medicaments and biological substances; Z79.82 Long term (current) use of aspirin; Z79.899 Other long term (current) drug therapy; Z87.01 Personal history of pneumonia (recurrent); Z71.6 Tobacco abuse counseling
CPT/HCPCS: 36415; 71045; 71275; 72128; 74174; 80053; 83605; 83735; 83835; 83880; 84100; 84132; 84484; 85025; 85610; 85730; 87040; 87340; 93005; 93306; 94640; 94760; 97116; 97161; 97530; 99285; G0257; G0378; J0360; J0696; J1644; J2060; J2270; J2405; J2920; J3010; J3490; J7030; Q4081; Q9967

== ENCOUNTER 2021-02-26 07:58 | Emergency (ER) | payer MEDICAID ==
[~2021-02-26] VITALS: Ht 172.7 cm; Wt 75.9 kg
[~2021-02-26 07:58] MED LIST changes: -ASPI-1071 PO; -CARV25TA2 PO; -CEFD300C3 PO; -FOLI1TAB34 PO; +HYDR-3965 PO; +HYDR-4069 PO; -HYDR-4070 PO; +LABE100T5 PO; +NIFE30TA95 PO
[2021-02-26 08:22] VITALS: BP 211/97
[2021-02-26 09:22] LABS: BASOPHILS # (AUTO) 0.1 X10'3 (0-0.2); BASOPHILS % (AUTO) 1.2 % (0-1); EOSINOPHILS # (AUTO) 0.2 X10'3 (0-0.9); EOSINOPHILS % (AUTO) 4.3 % (0-6); HEMATOCRIT 27.3 % (35.0-45.0); LYMPHOCYTES # (AUTO) 0.4 X10'3 (1.1-4.8); LYMPHOCYTES % (AUTO) 9.7 % (21-51); MEAN CORPUSCULAR HEMOGLOBIN 34.9 PG (27.0-31.0); MEAN CORPUSCULAR VOLUME 105.7 FL (78-98); MEAN PLATELET VOLUME 8.4 FL (7.4-10.4); MONOCYTES # (AUTO) 0.4 X10'3 (0-0.9); MONOCYTES % (AUTO) 8.4 % (2-12); NEUTROPHILS # (AUTO) 3.4 X10'3 (1.8-7.7); NEUTROPHILS % (AUTO) 76.4 % (42-75); PLATELET COUNT 213 X10'3 (140-440); RED BLOOD COUNT 2.58 X10'6 (4.20-5.60); RED CELL DISTRIBUTION WIDTH 17.5 % (11.5-14.5); WHITE BLOOD COUNT 4.5 X10'3 (4.5-11.0)
[2021-02-26 09:33] LABS: ALANINE AMINOTRANSFERASE 25 U/L (12-78); ALBUMIN 3.5 G/DL (3.4-5.0); ALBUMIN/GLOBULIN RATIO 0.9 (1.1-1.5); ALKALINE PHOSPHATASE 95 IU/L (46-116); ANION GAP 10 (8-16); ASPARTATE AMINO TRANSFERASE 27 U/L (10-37); BILIRUBIN,TOTAL 0.7 MG/DL (0.1-1.0); BLOOD UREA NITROGEN 33 MG/DL (7-18); BUN/CREATININE RATIO 4.7 (6.6-38.0); CALCIUM 8.7 MG/DL (8.5-10.1); CHLORIDE 103 MMOL/L (99-107); GLUCOSE 74 MG/DL (70-104); POTASSIUM 4.3 MMOL/L (3.5-5.1); SODIUM 144 MMOL/L (135-145); TOTAL CARBON DIOXIDE 31.1 MMOL/L (24-32); TOTAL PROTEIN 7.2 G/DL (6.4-8.2); eGFR 6 ML/MIN
[2021-02-26 11:37] LABS: CLARITY,URINE SLIGHTLY CLOUDY (Clear); GLUCOSE, URINE 100 mg/dl (Neg); KETONES,URINE NEGATIVE (Neg); LEUKOCYTE ESTERASE ,URINE NEGATIVE (Neg); NITRITES, URINE NEGATIVE (Neg); OCCULT BLOOD,URINE MODERATE (Neg); PH,URINE 8.5 (4.8-8.0); PROTEIN,URINE 100 mg/dl (Neg); UROBILINOGEN,URINE 0.2 E.U/dL (0.2-1.0)
[2021-02-26 11:38] LABS: COLOR,URINE STRAW (Yellow); UA COLLECTION TYPE VOIDED
[2021-02-26 11:46] LABS: WBC,URINE 0-4 /HPF (0-4)
[2021-02-26 11:47] LABS: BACTERIA,URINE 1+ /HPF (Neg); RBC,URINE 0-2 /HPF (0-2); SQUAMOUS EPITHELIAL CELL,UR MANY /LPF (FEW)
== END 2021-02-26 11:54 | disposition home or self-care (01) ==
LOC: ER 07:59
DX: R60.0 Localized edema (principal); G89.29 Other chronic pain; M54.9 Dorsalgia, unspecified; I13.0 Hypertensive heart and chronic kidney disease with heart failure and stage 1 through stage 4 chronic kidney disease, or unspecified chronic kidney disease; N18.9 Chronic kidney disease, unspecified
CPT/HCPCS: 36415; 80053; 81001; 85025; 85610; 93971; 99284

== ENCOUNTER 2021-03-01 09:55 | Emergency (ER) | payer MEDICAID ==
[~2021-03-01] VITALS: Ht 172.7 cm; Wt 72.0 kg
[2021-03-01 10:10] VITALS: BP 177/69
[2021-03-01] MEDS ORDERED: HYDR-3973 PO (10:28)
== END 2021-03-01 11:29 | disposition home or self-care (01) ==
LOC: ER 09:56
DX: M54.50 Low back pain, unspecified (principal); I25.10 Atherosclerotic heart disease of native coronary artery without angina pectoris; I13.2 Hypertensive heart and chronic kidney disease with heart failure and with stage 5 chronic kidney disease, or end stage renal disease; N18.6 End stage renal disease; G89.29 Other chronic pain; F12.90 Cannabis use, unspecified, uncomplicated; F15.90 Other stimulant use, unspecified, uncomplicated; Z87.01 Personal history of pneumonia (recurrent); Z99.2 Dependence on renal dialysis; Z98.890 Other specified postprocedural states; Z88.8 Allergy status to other drugs, medicaments and biological substances; Z79.899 Other long term (current) drug therapy
CPT/HCPCS: 99283

== ENCOUNTER 2021-03-18 22:43 | Inpatient (IN) | payer MEDICAID ==
[~2021-03-18] VITALS: Ht 175.3 cm; Wt 62.0 kg
[~2021-03-18 22:43] MED LIST changes: -HYDR-3965 PO; +HYDR-3973 PO
[2021-03-19 01:05] LABS: PLATELET COUNT 274 X10'3 (140-440); RED CELL DISTRIBUTION WIDTH 16.4 % (11.5-14.5); WHITE BLOOD COUNT 5.6 X10'3 (4.5-11.0)
[2021-03-19 01:07] LABS: BASOPHILS # (AUTO) 0.1 X10'3 (0-0.2); BASOPHILS % (AUTO) 1.8 % (0-1); EOSINOPHILS # (AUTO) 0.1 X10'3 (0-0.9); EOSINOPHILS % (AUTO) 2.4 % (0-6); HEMATOCRIT 28.3 % (35.0-45.0); HEMOGLOBIN 9.5 g/dl (12.0-16.0); LYMPHOCYTES % (AUTO) 17.2 % (21-51); MEAN CORPUSCULAR HGB CONC 33.4 g/dL (33.0-36.5); MEAN CORPUSCULAR VOLUME 101.7 FL (78-98); MEAN PLATELET VOLUME 9.2 FL (7.4-10.4); MONOCYTES # (AUTO) 0.3 X10'3 (0-0.9); MONOCYTES % (AUTO) 6.2 % (2-12); NEUTROPHILS % (AUTO) 72.4 % (42-75); RED BLOOD COUNT 2.79 X10'6 (4.20-5.60)
[2021-03-19 01:17] LABS: ALANINE AMINOTRANSFERASE 14 U/L (12-78); ALBUMIN 3.8 G/DL (3.4-5.0); ALBUMIN/GLOBULIN RATIO 0.9 (1.1-1.5); ALKALINE PHOSPHATASE 91 IU/L (46-116); ANION GAP 15 (8-16); ASPARTATE AMINO TRANSFERASE 21 U/L (10-37); BILIRUBIN,TOTAL 0.9 MG/DL (0.1-1.0); BLOOD UREA NITROGEN 55 MG/DL (7-18); BUN/CREATININE RATIO 5.7 (6.6-38.0); CALCIUM 9.2 MG/DL (8.5-10.1); CHLORIDE 100 MMOL/L (99-107); CREATININE 9.68 MG/DL (0.40-0.90); GLUCOSE 93 MG/DL (70-104); LIPASE 130 U/L (73-393); POTASSIUM 4.6 MMOL/L (3.5-5.1); SODIUM 140 MMOL/L (135-145); TOTAL PROTEIN 7.9 G/DL (6.4-8.2); eGFR 5 ML/MIN
[2021-03-19] MEDS ORDERED: labetalol 20mg/4ml (5mg/ml) syringe IV ONE (03:00)
[2021-03-19] MEDS ORDERED: NIFE90TA44 PO (03:13)
[2021-03-19] MEDS ORDERED: METO5TAB7 PO (03:13)
[2021-03-19] MEDS ORDERED: ZAR5T PO (03:13)
[2021-03-19] MEDS ORDERED: FURO80TA3 PO (03:19)
[2021-03-19] MEDS ORDERED: mag hydrox/Alum hydrox/simeth 30ml oral suspension PO PRN (05:00)
[2021-03-19] MEDS ORDERED: ondansetron/PF 4mg/2ml inj IV PRN (05:00)
[2021-03-19] MEDS ORDERED: acetaminophen 325mg tablet PO PRN (05:00)
[2021-03-19] MEDS ORDERED: hydrALAZINE 20mg/ml inj. IV PRN (05:55)
--- NOTE | 2021-03-19 07:30 | NUR ---
PT REFUSING TO KEEP MONITOR ON DUE TO DISCOMFORT. STATES THAT SHE HAS TO KEEP MOVING. ASKING FOR DR TO BEDSIDE.
[2021-03-19] MEDS: docusate sod 100mg capsule PO SCH ×2 (07:31→19:47)
[2021-03-19] MEDS: atorvastatin 20mg tablet PO SCH (07:39)
[2021-03-19] MEDS: heparin, porcine 5000 units/ml vial SQ SCH ×2 (07:40→20:02)
[2021-03-19] MEDS: furosemide 10 MG/1 ML 10ml inj IV SCH ×2 (07:40→20:04)
[2021-03-19] MEDS: NIFEdipine XL 30mg tablet PO SCH (07:40)
[2021-03-19] MEDS: metolazone 2.5mg tablet PO SCH (08:00)
[2021-03-19] MEDS ORDERED: magnesium 4gm in 100ml NS 100 ML IV PRN (09:05)
[2021-03-19] MEDS ORDERED: potassium Cl 20 mEq SR tablet PO PRN ×2 (09:05)
[2021-03-19] MEDS ORDERED: potassium Cl 40MEQ/1/2NS 520ml 520 ML IV PRN (09:05)
[2021-03-19] MEDS ORDERED: magnesium Cl slow-release 64mg tablet PO PRN (09:05)
[2021-03-19] MEDS: cloNIDine 0.1 mg tablet PO SCH ×3 (09:19→20:01)
--- NOTE | 2021-03-19 09:22 | NUR ---
PT C/O 12/[address] RODRIGES PAGED FOR ORDERS.
--- NOTE | 2021-03-19 09:30 | NUR ---
PT REMINDED TO PLACE CONTINUOUS ELECTRIC REFRIGERATOR SERVICER ON. PT REFUSING DUE TO DISCOMFORT.
--- NOTE | 2021-03-19 11:28 | NUR ---
DR. RODRIGES PAGED ADDITIONAL 2X FOR PAIN ORDERS. AWAITING RESPONSE.
--- NOTE | 2021-03-19 11:30 | NUR ---
TICKET SCHEDULER OFF OF PT PT REFUSING TO KEEP ON. SPOT CHECK VITALS AND PULSE OX. PAGECarlos AGAIN FOR ORDERS.
[2021-03-19 11:49] LABS: CLARITY,URINE CLEAR (Clear); COLOR,URINE YELLOW (Yellow); GLUCOSE, URINE 100 mg/dl (Neg); KETONES,URINE NEGATIVE (Neg); LEUKOCYTE ESTERASE ,URINE NEGATIVE (Neg); NITRITES, URINE NEGATIVE (Neg); OCCULT BLOOD,URINE MODERATE (Neg); PH,URINE >=9.0 (4.8-8.0); PROTEIN,URINE 100 mg/dl (Neg); UROBILINOGEN,URINE 0.2 E.U/dL (0.2-1.0)
[2021-03-19 11:50] LABS: URINE HCG NEGATIVE (NEG)
[2021-03-19 11:58] LABS: UA COLLECTION TYPE CLN CATCH MIDSTREAM
[2021-03-19 12:00] LABS: BACTERIA,URINE 2+ /HPF (Neg)
[2021-03-19 12:01] LABS: WBC,URINE 0-4 /HPF (0-4)
[2021-03-19 12:02] LABS: RBC,URINE 0-2 /HPF (0-2)
[2021-03-19 12:05] LABS: SQUAMOUS EPITHELIAL CELL,UR FEW /LPF (FEW)
--- NOTE | 2021-03-19 12:25 | NUR ---
PT REFUSING TROP REDRAW.
--- NOTE | 2021-03-19 12:50 | NUR ---
RECEIVED RETURN CALL FROM DR. RODRIGES. NOTIFIED OF PT REFUSING TROP REDRAW ALSO PTS REQUEST FOR PAIN MEDICATION. REQUESTED DR. RODRIGES TO PT BEDSIDE HE HAD MULTIPLE QUESTIONS. WILL AWAIT HIS PRESENCE AT BEDSIDE.
--- NOTE | 2021-03-19 14:00 | NUR ---
PT NOT ON TECHNICAL EXPERT. PT ANGRY AND VISIBLY UPSET. SPOT CHECKED VITALS AND PULSE OX. PT AGAIN REQUESTING ADMISSION DR TO BEDSIDE.
[2021-03-19] MEDS ORDERED: heparin 1,000 units/ml 10ml inj IV ONE (14:15)
[2021-03-19] MEDS ORDERED: LIDOcaine 1% (10mg/ml) 2ml vial SQ ONE (14:15)
[2021-03-19] MEDS ORDERED: EPOETIN ALFA-EPBX 20,000 UNIT/ML 1 ML MDV IV ONE (14:15)
[2021-03-19] MEDS ORDERED: normal saline 1000ml 250 ML IV PRN (14:15)
--- NOTE | 2021-03-19 16:00 | NUR ---
DOWNSTREAM BIOMANUFACTURING TECHNICIAN REPLACED AND PT EDUCATED IMPORTANCE OF KEEPING IT ON. PT STILL COMPLAINING OF DISCOMFORT IN BACK.
[2021-03-19 18:00] VITALS: BP 134/68
--- NOTE | 2021-03-19 18:00 | NUR ---
DR. RODRIGES TO BEDSIDE. UPSET THAT PT NOT ON CONTINUOUS SANITARIAN. ADVOCATED FOR PT AND NOTIFIED THAT WE HAD PAGED HIM SEVERAL TIMES TODAY REQUESTING SOMETHING TO MAKE PT MORE COMFORTABLE. PT STATES "HE'S AN ASSHOLE".
--- NOTE | 2021-03-19 18:06 | NUR ---
PT CONTINUES TO C/O 10/10 LOWER BACK PAIN. PT VISIBLY UPSET. STATES THAT ADMITTING DR. RODRIGES HAS NOT BEEN IN HER ROOM TO SEE HER. MEAL TRAY TO BEDSIDE. DR. RODRIGES PAGED AGAIN FOR DIRECTION.
[2021-03-19] MEDS: K and/or MAG REPLACEMENT MC SCH (19:48)
[2021-03-19] MEDS: HYDROcodone/acetaminophen 5mg/325mg tablet PO PRN (20:03)
[2021-03-19 21:00] VITALS: BP 176/82
[2021-03-19 22:00] VITALS: BP 151/80
[2021-03-20 02:00] VITALS: BP 182/79
[2021-03-20 06:00] VITALS: BP 142/74
[2021-03-20 06:10] LABS: BASOPHILS # (AUTO) 0.1 X10'3 (0-0.2); BASOPHILS % (AUTO) 1.3 % (0-1); EOSINOPHILS # (AUTO) 0.1 X10'3 (0-0.9); EOSINOPHILS % (AUTO) 2.6 % (0-6); HEMATOCRIT 28.7 % (35.0-45.0); HEMOGLOBIN 9.3 g/dl (12.0-16.0); LYMPHOCYTES % (AUTO) 19.3 % (21-51); MEAN CORPUSCULAR HGB CONC 32.5 g/dL (33.0-36.5); MEAN CORPUSCULAR VOLUME 104.5 FL (78-98); MEAN PLATELET VOLUME 9.4 FL (7.4-10.4); MONOCYTES # (AUTO) 0.4 X10'3 (0-0.9); MONOCYTES % (AUTO) 7.2 % (2-12); NEUTROPHILS # (AUTO) 3.5 X10'3 (1.8-7.7); NEUTROPHILS % (AUTO) 69.6 % (42-75); PLATELET COUNT 251 X10'3 (140-440); RED BLOOD COUNT 2.75 X10'6 (4.20-5.60); RED CELL DISTRIBUTION WIDTH 16.7 % (11.5-14.5)
--- NOTE | 2021-03-20 06:28 | NUR ---
Problems reprioritized. Patient report given, questions answered & plan of care reviewed with Rachele.
--- NOTE | 2021-03-20 06:30 | NUR ---
Patient in room PCU 3025. I have received report from Carmela ABURTO and had the opportunity to ask questions and assume patient care. Patient was sleeping this morning when I rounded. All needs met at this time.
[2021-03-20 06:34] LABS: ALANINE AMINOTRANSFERASE 7 U/L (12-78); ALBUMIN 3.4 G/DL (3.4-5.0); ALBUMIN/GLOBULIN RATIO 0.9 (1.1-1.5); ALKALINE PHOSPHATASE 82 IU/L (46-116); ANION GAP 16 (8-16); ASPARTATE AMINO TRANSFERASE 15 U/L (10-37); BILIRUBIN,TOTAL 0.7 MG/DL (0.1-1.0); BLOOD UREA NITROGEN 68 MG/DL (7-18); BUN/CREATININE RATIO 6.4 (6.6-38.0); CALCIUM 9.5 MG/DL (8.5-10.1); CHLORIDE 101 MMOL/L (99-107); CREATININE 10.56 MG/DL (0.40-0.90); GLUCOSE 102 MG/DL (70-104); MAGNESIUM 2.6 MG/DL (1.5-2.4); PHOSPHORUS 6.6 MG/DL (2.3-4.5); POTASSIUM 4.7 MMOL/L (3.5-5.1); SODIUM 139 MMOL/L (135-145); TOTAL CARBON DIOXIDE 21.9 MMOL/L (24-32); TOTAL PROTEIN 7.2 G/DL (6.4-8.2); eGFR 5 ML/MIN
[2021-03-20] MEDS: K and/or MAG REPLACEMENT MC SCH (07:08)
[2021-03-20] MEDS: furosemide 10 MG/1 ML 10ml inj IV SCH ×2 (08:25→20:00)
[2021-03-20] MEDS: heparin, porcine 5000 units/ml vial SQ SCH ×2 (08:25→20:00)
[2021-03-20] MEDS: docusate sod 100mg capsule PO SCH ×2 (08:26→20:00)
[2021-03-20] MEDS: cloNIDine 0.1 mg tablet PO SCH ×3 (08:26→21:08)
[2021-03-20] MEDS: atorvastatin 20mg tablet PO SCH (08:26)
[2021-03-20] MEDS: NIFEdipine XL 30mg tablet PO SCH (08:26)
[2021-03-20] MEDS: HYDROcodone/acetaminophen 5mg/325mg tablet PO PRN (08:27)
[2021-03-20 11:00] VITALS: BP 166/74
[2021-03-20] MEDS ORDERED: hydrALAZINE 20mg/ml inj. IV ONE (11:35)
[2021-03-20] MEDS: metolazone 2.5mg tablet PO SCH (12:08)
--- NOTE | 2021-03-20 12:50 | NUR ---
Message: Room 3025A: Randi Eisenberg: Patient is complaining about bad lower back pain. 10/23. I gave her the norco 5 PRN about 4 hours ago but it is q6. Can I get something else for pain? Rachele [phone]
--- NOTE | 2021-03-20 13:32 | NUR ---
Message: Room 3029V: Randi Eisenberg: Patient would like to speak with you bedside. [place] [phone]
[2021-03-20] MEDS ORDERED: HYDROcodone/acetaminophen 5mg/325mg tablet PO PRN (13:35)
[2021-03-20] MEDS: morphine 2 MG/ML inj. syringe IV ONE ×2 (13:45→14:00)
[2021-03-20] MEDS ORDERED: HYDROcodone/acetaminophen 10/325mg tab PO PRN (13:45)
[2021-03-20 15:00] VITALS: BP 120/67
[2021-03-20 16:00] VITALS: BP_SYST 120
[2021-03-20] MEDS ORDERED: hyDRALAzine 10mg tablet PO SCH (16:00)
[2021-03-20] MEDS ORDERED: HYDR-3965 PO (17:37)
[2021-03-20] MEDS ORDERED: HYDR-4069 PO (17:37)
[2021-03-20] MEDS ORDERED: CARV3.12 PO (17:40)
[2021-03-20] MEDS ORDERED: CLON0.1T2 PO (17:45)
--- NOTE | 2021-03-20 18:40 | NUR ---
Problems reprioritized. Patient report given, questions answered & plan of care reviewed with Carmela ABURTO.
[2021-03-21 10:59] LABS: HBSAG SCREEN Negative (Negative)
== END 2021-03-20 21:30 | disposition home or self-care (01) | DRG 199 ==
LOC: ER 22:44 → ED HOLD 03-19 05:04 → PCU 3S 03-19 21:25
PROVIDERS: ADMIT Family Medicine; ATTEND Family Medicine
DX: I16.1 Hypertensive emergency (principal); N18.6 End stage renal disease; I50.9 Heart failure, unspecified; Z66 Do not resuscitate; E03.9 Hypothyroidism, unspecified; I13.2 Hypertensive heart and chronic kidney disease with heart failure and with stage 5 chronic kidney disease, or end stage renal disease; Z20.822 Contact with and (suspected) exposure to COVID-19; F17.210 Nicotine dependence, cigarettes, uncomplicated; F12.90 Cannabis use, unspecified, uncomplicated; G89.29 Other chronic pain; M54.9 Dorsalgia, unspecified; I25.10 Atherosclerotic heart disease of native coronary artery without angina pectoris; Z82.49 Family history of ischemic heart disease and other diseases of the circulatory system; Z95.1 Presence of aortocoronary bypass graft; Z98.61 Coronary angioplasty status; Z99.2 Dependence on renal dialysis; Z88.8 Allergy status to other drugs, medicaments and biological substances; Z79.899 Other long term (current) drug therapy; Z91.14 Patient's other noncompliance with medication regimen; Z71.6 Tobacco abuse counseling
CPT/HCPCS: 36415; 71045; 74176; 80053; 81001; 81025; 83690; 83735; 84100; 84443; 84484; 85025; 87340; 87635; 93005; 93971; 96374; 99291; 99292; G0378; J0360; J1644; J1940; J2270; J3490; Q4081

== ENCOUNTER 2021-04-22 08:12 | Emergency (ER) | payer MEDICAID ==
[~2021-04-22] VITALS: Ht 172.7 cm; Wt 64.0 kg
[~2021-04-22 08:12] MED LIST changes: +CARV3.12 PO; -HYDR-3973 PO; -HYDR-4069 PO; -LABE100T5 PO; +METO5TAB7 PO; -NIFE30TA95 PO; +NIFE90TA44 PO; -ZAR2.5T PO
--- NOTE | 2021-04-22 08:27 | NUR ---
patient to the rap deck. Unable to obtain pulse ox. Patient moved to bed 6.
[2021-04-22] MEDS ORDERED: hydrALAZINE 20mg/ml inj. IV ONE ×2 (10:00→11:30)
[2021-04-22 10:56] LABS: BASOPHILS % (AUTO) 0.9 % (0-1); EOSINOPHILS # (AUTO) 0.1 X10'3 (0-0.9); HEMOGLOBIN 9.5 g/dl (12.0-16.0); LYMPHOCYTES # (AUTO) 0.8 X10'3 (1.1-4.8); MEAN CORPUSCULAR VOLUME 100.2 FL (78-98); MONOCYTES # (AUTO) 0.7 X10'3 (0-0.9)
[2021-04-22 10:58] LABS: BASOPHILS # (AUTO) 0.1 X10'3 (0-0.2); EOSINOPHILS % (AUTO) 1.4 % (0-6); HEMATOCRIT 28.8 % (35.0-45.0); LYMPHOCYTES % (AUTO) 14.3 % (21-51); MEAN CORPUSCULAR HEMOGLOBIN 33.2 PG (27.0-31.0); MEAN CORPUSCULAR HGB CONC 33.2 g/dL (33.0-36.5); MEAN PLATELET VOLUME 9.7 FL (7.4-10.4); MONOCYTES % (AUTO) 12.1 % (2-12); NEUTROPHILS # (AUTO) 3.9 X10'3 (1.8-7.7); NEUTROPHILS % (AUTO) 71.3 % (42-75); PLATELET COUNT 211 X10'3 (140-440); RED BLOOD COUNT 2.87 X10'6 (4.20-5.60); RED CELL DISTRIBUTION WIDTH 16.8 % (11.5-14.5); WHITE BLOOD COUNT 5.5 X10'3 (4.5-11.0)
[2021-04-22 11:06] LABS: ALANINE AMINOTRANSFERASE 13 U/L (12-78); ALBUMIN 3.4 G/DL (3.4-5.0); ALBUMIN/GLOBULIN RATIO 0.8 (1.1-1.5); ALKALINE PHOSPHATASE 77 IU/L (46-116); ANION GAP 13 (8-16); ASPARTATE AMINO TRANSFERASE 18 U/L (10-37); BLOOD UREA NITROGEN 58 MG/DL (7-18); BUN/CREATININE RATIO 6.3 (6.6-38.0); CHLORIDE 97 MMOL/L (99-107); CREATININE 9.19 MG/DL (0.40-0.90); GLUCOSE 91 MG/DL (70-104); POTASSIUM 4.5 MMOL/L (3.5-5.1); SODIUM 137 MMOL/L (135-145); TOTAL CARBON DIOXIDE 27.1 MMOL/L (24-32); TOTAL PROTEIN 7.8 G/DL (6.4-8.2); eGFR 5 ML/MIN
[2021-04-22] MEDS ORDERED: labetalol 20mg/4ml (5mg/ml) syringe IV ONE (11:30)
[2021-04-22 12:37] VITALS: BP 167/87
== END 2021-04-22 13:23 | disposition home or self-care (01) ==
LOC: ER 08:13
DX: I13.2 Hypertensive heart and chronic kidney disease with heart failure and with stage 5 chronic kidney disease, or end stage renal disease (principal); N18.6 End stage renal disease; I50.89 Other heart failure; G89.29 Other chronic pain; M54.9 Dorsalgia, unspecified; Z88.8 Allergy status to other drugs, medicaments and biological substances
CPT/HCPCS: 71045; 80053; 83880; 85025; 93005; 96374; 96375; 96376; 99285; J0360; J3490